=== PATIENT | female | born 1945 | race Caucasian/White ===

== ENCOUNTER 2017-01-23 13:07 | Observation (INO) | payer MEDICARE ==
[2017-01-23] VITALS (13 sets, daily range): BP systolic 139–180; BP diastolic 71–121; PULSE 74–129; RESP 14–20; TEMP 97.4–97.8; O2SAT 97–100
[~2017-01-23] VITALS: Ht 172.7 cm; Wt 78.6 kg
[~2017-01-23 13:07] MED LIST: ASPI325T PO; CALC600T10 PO; FEXO60TA PO; MELO7.5 PO; METO50TA PO
[2017-01-23] MEDS ORDERED: ALLEGRA (13:47)
[2017-01-23] MEDS ORDERED: METO25TA3 PO (13:47)
[2017-01-23] MEDS ORDERED: ASPI325T PO (13:47)
[2017-01-23] MEDS ORDERED: MELO7.5T4 PO (13:47)
[2017-01-23] MEDS ORDERED: CALC1TAB12 PO (13:47)
[2017-01-23] MEDS ORDERED: DILTIAZEM HCL 25 MG/5 ML VIAL IV ONE (14:00)
[2017-01-23] MEDS ORDERED: SODIUM CHLORIDE 0.9% FLUSH 5 ML FLUSH IVF PRN (14:00)
--- NOTE | 2017-01-23 14:12 | PD ---
HPI Chief Complaint: Cardiac Complaint Time Seen by Provider: 13:35 Travel History International Travel<30 days: No Contact w/Intl Traveler<30days: No Traveled to known affect area: No History of Present Illness HPI The patient was seen and examined in the presence of the nurse. This patient complains of rapid heartbeat and palpitations. She has history of paroxysmal A. fib and has had ablation in the past. She took her metoprolol at 9 AM this morning as usual. She takes a daily aspirin but no other blood thinners. She follows with cardiology regularly. Symptoms severity is moderate. No presyncopal symptoms. No chest pain. No alleviating factors, duration is 2 hours PFSH Past Medical History Anemia: Yes Arthritis: Yes Atrial Fibrillation: Yes (HISTORY OF) Blood Disorders: No Heart Rhythm Problems: Yes Cancer: No Cardiac Catheterization: Yes Cardiovascular Problems: Yes (Palpitations, ablation for AF, DVT) High Cholesterol: No Chest Pain: No Congestive Heart Failure: No Diabetes: No Diminished Hearing: No Diverticulitis: Yes Deep Vein Thrombosis: Yes (LEFT LEG R/T AFIB: 2011) Endocrine: No Gastrointestinal Disorders: Yes (DIVERTICULITIS, GALLBLADDER LESION) Genitourinary: No Hepatitis: No Hiatal Hernia: Yes Hypertension: Yes Immune Disorder: No Implanted Vascular Access Dvce: No Medical other: Yes (DIVERTICULOSIS) Musculoskeletal: No Neurologic: No Psychiatric: No Reproductive: No Respiratory: Yes (PNA) Pneumonia: Yes Thyroid Disease: No Tetanus Vaccination: Unknown ?: Not Menopausal: Yes : 2 Para: 2 Past Surgical History Abdominal Surgery: Yes Appendectomy: Yes Cardiac Surgery: Yes (ablation) Cholecystectomy: Yes Gynecologic Surgery: Yes (HYSTERECTOMY) Hysterectomy: Yes (91) Oral Surgery: Yes (TONSILECTOMY) Pacemaker: No Tonsillectomy: Yes Other Surgery: Yes (CARDIAC ABLASION) Social History Alcohol Use: Yes (SOCIAL) Tobacco Use: No Substance Use: No Allergies-Medications (Allergen,Severity, Reaction): Coded Allergies: Erythromycin (Verified Allergy, Severe, 01/23/17) Influenza Virus Vaccine (Verified Allergy, Severe, 01/23/17) Reported Meds & Prescriptions Reported Meds & Active Scripts Active Reported [[place]] Calcium 500 +D (Calcium Carbonate-Cholecalciferol) 500-400 Mg-Unit Tab 1 Tab PO DAILY Aspirin 325 Mg Tab 325 Mg PO DAILY Meloxicam 7.5 Mg Tab 7.5 Mg PO BID Metoprolol Tartrate 25 Mg Tab 12.5 Mg PO BID Review of Systems General / Constitutional: No: Fever Eyes: No: Visual changes HENT: No: Headaches Cardiovascular: Positive: Palpitations, Irregular Rhythm, Tachycardia, No: Chest Pain or Discomfort Respiratory: No: Shortness of Breath Gastrointestinal: No: Abdominal Pain Genitourinary: No: Dysuria Musculoskeletal: No: Pain Skin: No Rash Neurologic: No: Weakness Psychiatric: No: Depression Endocrine: No: Polydipsia Hematologic/Lymphatic: No: Easy Bruising Physical Exam Narrative GENERAL: Well-nourished, well-developed patient in no apparent distress. SKIN: Warm and dry. HEAD: Atraumatic. Normocephalic. EYES: Pupils equal and round. No scleral icterus. No injection or drainage. ENT: No nasal bleeding or discharge. Mucous membranes pink and moist. NECK: Trachea midline. No JVD. CARDIOVASCULAR: Irregularly irregular rhythm. No murmur appreciated. RESPIRATORY: No accessory muscle use. Clear to auscultation. Breath sounds equal bilaterally. GASTROINTESTINAL: Abdomen soft, non-tender, nondistended. Hepatic and splenic margins not palpable. MUSCULOSKELETAL: No obvious deformities. No clubbing. No cyanosis. No edema. NEUROLOGICAL: Awake and alert. No obvious cranial nerve deficits. Motor grossly within normal limits. Normal speech. PSYCHIATRIC: Appropriate mood and affect; insight and judgment normal. Data Data Last Documented VS Vital Signs Date Time Temp Pulse Resp B/P Pulse Ox O2 Delivery O2 Flow Rate FiO2 01/23/17 15:34 91 16 154/103 97 Room Air 01/23/17 13:19 97.4 Orders Complete Blood Count With Diff (01/23/17 13:49) Basic Metabolic Panel (Bmp) (01/23/17 13:49) Act Partial Throm Time (Ptt) (01/23/17 13:49) Prothrombin Time / Inr (Pt) (01/23/17 13:49) Magnesium (Mg) (01/23/17 13:49) Iv Access Insert/Monitor (01/23/17 13:49) Ecg Monitoring (01/23/17 13:49) Oximetry (01/23/17 13:49) Sodium Chloride 0.9% Flush (Ns Flush) (01/23/17 14:00) Diltiazem Inj (Cardizem Inj) (01/23/17 14:00) Electrocardiogram (01/23/17 13:28) Labs Laboratory Tests Test 01/23/17 14:07 White Blood Count 6.9 TH/MM3 Red Blood Count 4.51 MIL/MM3 Hemoglobin 13.8 GM/DL Hematocrit 42.2 % Mean Corpuscular Volume 93.6 FL Mean Corpuscular Hemoglobin 30.7 PG Mean Corpuscular Hemoglobin 32.8 % Concent Red Cell Distribution Width 12.0 % Platelet Count 265 TH/MM3 Mean Platelet Volume 8.4 FL Neutrophils (%) (Auto) 67.0 % Lymphocytes (%) (Auto) 25.1 % Monocytes (%) (Auto) 6.7 % Eosinophils (%) (Auto) 0.4 % Basophils (%) (Auto) 0.8 % Neutrophils # (Auto) 4.6 TH/MM3 Lymphocytes # (Auto) 1.7 TH/MM3 Monocytes # (Auto) 0.5 TH/MM3 Eosinophils # (Auto) 0.0 TH/MM3 Basophils # (Auto) 0.1 TH/MM3 CBC Comment DIFF FINAL Differential Comment Prothrombin Time 10.8 SEC Prothromb Time International 1.0 RATIO Ratio Activated Partial 27.1 SEC Thromboplast Time Sodium Level 141 MEQ/L Potassium Level 3.9 MEQ/L Chloride Level 108 MEQ/L Carbon Dioxide Level 24.4 MEQ/L Anion Gap 9 MEQ/L Blood Urea Nitrogen 13 MG/DL Creatinine 0.89 MG/DL Estimat Glomerular Filtration 63 ML/MIN Rate Random Glucose 104 MG/DL Calcium Level 9.1 MG/DL Magnesium Level 2.4 MG/DL [facility] Medical Decision Making Medical Screen Exam Complete: Yes Emergency Medical Condition: Yes Medical Record Reviewed: Yes Differential Diagnosis A. fib with RVR, SVT, ventricular tachycardia Narrative Course I have reviewed the patient's electronic medical record. Patient has been here for rapid A. fib before. Was here in 2011 for the same Patient is challenging IV access I placed bilateral external jugular IVs without complication Reviewed her EKG which shows A. fib with RVR Extended cardiac monitoring confirms rapid A. fib between 130 and 150 CBC is normal Metabolic profile is normal Coagulation studies are normal Patient is tachycardic and hypertensive I gave her 20 mg IV Cardizem On reassessment she is now rate controlled with a heart rate in the 90s and blood pressure 140/70 She feels much better I observed her for another hour after Cardizem and her rate is still in the 90s and she is now stable for outpatient follow-up She has an appointment with her talent acquisition associate in 2 days She will track her heart rate and blood pressure and bring that to the doctor's office Diagnosis Primary Impression: Atrial fibrillation with RVR Additional Impression: Accelerated hypertension Additional Instructions: Track heart rate and blood pressure and bring the list to your doctor on Monday Med/Other Pt SpecificInfo: Other Disposition: 01 DISCHARGE HOME Condition: Stable Perez Jeffrey MD Jan 23, 2017 14:12
[2017-01-23 14:17] LABS: AUTOMATED NEUTROPHIL # 4.6 TH/MM3 (1.8-7.7); BASOPHIL # 0.1 TH/MM3 (0-0.2); BASOPHIL % 0.8 % (0.0-2.0); EOSINOPHIL % 0.4 % (0.0-4.0); HEMATOCRIT 42.2 % (35.0-46.0); HEMO FLAGS DIFF FINAL; LYMPH % 25.1 % (9.0-44.0); LYMPHOCYTE # 1.7 TH/MM3 (1.0-4.8); MEAN CELL VOLUME 93.6 FL (80.0-100.0); MEAN CORPUSCULAR HEMOGLOBIN 30.7 PG (27.0-34.0); MEAN CORPUSCULAR HGB CONC 32.8 % (32.0-36.0); MONO % 6.7 % (0.0-8.0); PLATELET COUNT 265 TH/MM3 (150-450); RED BLOOD COUNT 4.51 MIL/MM3 (4.00-5.30); WHITE BLOOD COUNT 6.9 TH/MM3 (4.0-11.0)
[2017-01-23 14:25] LABS: POTASSIUM 3.9 MEQ/L (3.5-5.1)
[2017-01-23 14:28] LABS: BICARBONATE 24.4 MEQ/L (21.0-32.0); MAGNESIUM 2.4 MG/DL (1.5-2.5)
[2017-01-23 14:29] LABS: APTT (PATIENT) 27.1 SEC (24.3-30.1); PROTHROMBIN TIME - PATIENT 10.8 SEC (9.8-11.6)
--- NOTE | 2017-01-23 17:10 | PD ---
Physical Exam Date Seen by Provider: Jan 23, 2017 Time Seen by Provider: 17:05 Narrative This 71-year-old female is complaining of palpitations. She has a history of atrial fibrillation. sHe presented several years ago with an occlusion in her left leg which was secondary to an embolus. He was found to be in atrial fibrillation. Since then she's had paroxysmal atrial fibrillation. She had an ablation at several years ago and has only rare bouts of atrial fibrillation she is currently on metoprolol 12.5 mg twice a day. She had an onset of palpitations at around 2:00 this morning. He presented here with a heart rate of about 120 to 1:30. She saw Dr. Jeffrey who gave her Cardizem. Her heart rate come down transiently but then went back up to 130. I ordered 25 mg of oral metoprolol. After this her heart rate down varying between 90 and 110. She remains in atrial fibrillation. She is awake and alert and does not appear in distress. I have discussed the case with Dr. March who recommends she be admitted in view of the lability of her heart rate. Data Data Last Documented VS Vital Signs Date Time Temp Pulse Resp B/P Pulse Ox O2 Delivery O2 Flow Rate FiO2 01/23/17 18:03 16 98 Room Air 01/23/17 18:02 89 148/85 01/23/17 13:19 97.4 Orders Complete Blood Count With Diff (01/23/17 13:49) Basic Metabolic Panel (Bmp) (01/23/17 13:49) Act Partial Throm Time (Ptt) (01/23/17 13:49) Prothrombin Time / Inr (Pt) (01/23/17 13:49) Magnesium (Mg) (01/23/17 13:49) Iv Access Insert/Monitor (01/23/17 13:49) Ecg Monitoring (01/23/17 13:49) Oximetry (01/23/17 13:49) Sodium Chloride 0.9% Flush (Ns Flush) (01/23/17 14:00) Diltiazem Inj (Cardizem Inj) (01/23/17 14:00) Electrocardiogram (01/23/17 13:28) Metoprolol Tartrate (Lopressor) (01/23/17 17:15) Aspirin (Aspirin) (01/23/17 18:45) Aspirin (Aspirin) (01/24/17 09:00) Metoprolol Tartrate (Lopressor) (01/23/17 21:00) Calcium-Vit D 250-125 Mg (Oscal-D 250-12 (01/24/17 09:00) Vital Signs (Adult) Q15MX4,Q4H (01/23/17 19:07) Admit Order (Ed Use Only) (01/23/17 19:09) Motor Checker / Telemetry YONY.Q8H (01/23/17 19:07) Cardiac Rhythm YONY.Q8H (01/23/17 19:07) ^ Notify Dr: Other (01/23/17 19:07) Diltiazem Inj (Cardizem Inj) (01/23/17 19:30) Place In Observation (01/23/17 ) Vital Signs (Adult) Q4H (01/23/17 19:07) Activity Oob With Assistance (01/23/17 19:07) Intake + Output YONY.QSHIFT (01/23/17 19:07) Diet Heart Healthy (01/24/17 Breakfast) Sodium Chloride 0.9% Flush (Ns Flush) (01/23/17 19:15) Sodium Chloride 0.9% Flush (Ns Flush) (01/23/17 21:00) Acetaminophen (Tylenol) (01/23/17 19:15) Ondansetron Inj (Zofran Inj) (01/23/17 19:15) Bisacodyl Supp (Dulcolax Supp) (01/23/17 19:15) Docusate Sodium (Colace) (01/23/17 21:00) Magnesium Hydroxide Liq (Milk Of Magnesi (01/23/17 19:15) Sennosides (Senokot) (01/23/17 19:15) Resp Oxygen Roddy C Titrat 1-4 L (01/23/17 ) Case Management Consult (01/23/17 19:07) Heparin Inj (Heparin Inj) (01/23/17 20:00) Scd Bilateral/Knee High YONY.BID (01/23/17 19:07) Acetaminophen (Tylenol) (01/23/17 19:15) Naloxone Inj (Narcan Inj) (01/23/17 19:15) Consult Cardiology (01/23/17 ) Thyroid Stimulating Hormone (01/23/17 14:07) Labs Laboratory Tests Test 01/23/17 14:07 White Blood Count 6.9 TH/MM3 Red Blood Count 4.51 MIL/MM3 Hemoglobin 13.8 GM/DL Hematocrit 42.2 % Mean Corpuscular Volume 93.6 FL Mean Corpuscular Hemoglobin 30.7 PG Mean Corpuscular Hemoglobin 32.8 % Concent Red Cell Distribution Width 12.0 % Platelet Count 265 TH/MM3 Mean Platelet Volume 8.4 FL Neutrophils (%) (Auto) 67.0 % Lymphocytes (%) (Auto) 25.1 % Monocytes (%) (Auto) 6.7 % Eosinophils (%) (Auto) 0.4 % Basophils (%) (Auto) 0.8 % Neutrophils # (Auto) 4.6 TH/MM3 Lymphocytes # (Auto) 1.7 TH/MM3 Monocytes # (Auto) 0.5 TH/MM3 Eosinophils # (Auto) 0.0 TH/MM3 Basophils # (Auto) 0.1 TH/MM3 CBC Comment DIFF FINAL Differential Comment Prothrombin Time 10.8 SEC Prothromb Time International 1.0 RATIO Ratio Activated Partial 27.1 SEC Thromboplast Time Sodium Level 141 MEQ/L Potassium Level 3.9 MEQ/L Chloride Level 108 MEQ/L Carbon Dioxide Level 24.4 MEQ/L Anion Gap 9 MEQ/L Blood Urea Nitrogen 13 MG/DL Creatinine 0.89 MG/DL Estimat Glomerular Filtration 63 ML/MIN Rate Random Glucose 104 MG/DL Calcium Level 9.1 MG/DL Magnesium Level 2.4 MG/DL [facility] Medical Record Reviewed: Yes Supervised Visit with EPIFANIO: No Differential Diagnosis Differential includes atrial fibrillation Narrative Course Patient has been given metoprolol 25 mg by mouth. Intravenous Cardizem was very short acting and affect. She is being admitted for observation Diagnosis Primary Impression: Atrial fibrillation with RVR Additional Impression: Accelerated hypertension Admitting Information Admitting Physician Requests: Observation Referrals: FRANC GOMEZ M.D. (PCP) Coin Purse Assembler as needed Patient Instructions: General Instructions, Atrial Fibrillation (ED), Hypertension (ED) Departure Forms: Tests/Procedures Additional Instruction: Track heart rate and blood pressure and bring the list to your doctor on Monday Disposition: 01 DISCHARGE HOME Condition: Stable Jodran Jennings MD Jan 23, 2017 17:10
[2017-01-23] MEDS ORDERED: METOPROLOL TARTRATE 25 MG TAB PO ONE (17:15)
[2017-01-23] MEDS ORDERED: ASPIRIN 325 MG TAB PO ONE (18:45)
[2017-01-23] MEDS ORDERED: SENNOSIDES 8.6 MG TAB PO PRN (19:15)
[2017-01-23] MEDS ORDERED: SODIUM CHLORIDE 0.9% FLUSH 5 ML FLUSH FLUSH PRN (19:15)
[2017-01-23] MEDS ORDERED: ONDANSETRON HCL 4 MG/2 ML VIAL IVP PRN (19:15)
[2017-01-23] MEDS ORDERED: BISACODYL 10 MG SUPP PR PRN (19:15)
[2017-01-23] MEDS ORDERED: MAGNESIUM HYDROXIDE SUSP 30 ML CUP PO PRN (19:15)
[2017-01-23] MEDS ORDERED: ACETAMINOPHEN 325 MG TAB PO PRN ×2 (19:15)
[2017-01-23] MEDS ORDERED: NALOXONE HCL 0.4 MG/ML AMP IV PRN (19:15)
[2017-01-23] MEDS ORDERED: DILTIAZEM INJ 100 MG in SODIUM CHLORIDE 0.9% INJ 100 ML IV SCH (19:30)
[2017-01-23] MEDS ORDERED: PILL SPLITTER OTHER PRN (19:30)
[2017-01-23] MEDS: SODIUM CHLORIDE 0.9% FLUSH 5 ML FLUSH FLUSH SCH (21:00)
[2017-01-23] MEDS: METOPROLOL TARTRATE 25 MG TAB PO SCH (21:23)
[2017-01-23] MEDS: DOCUSATE SODIUM 100 MG CAP PO SCH (21:23)
[2017-01-23] MEDS: HEPARIN SODIUM - SQ 10,000 UNITS/ML VIAL SQ SCH (21:23)
[2017-01-24] VITALS: BP 132/82; PULSE 77; RESP 20; TEMP 96.7; O2SAT 98
[2017-01-24 08:00] VITALS: BP 118/93; PULSE 85; RESP 20; TEMP 97.6; O2SAT 98
[2017-01-24] MEDS ORDERED: ASPIRIN 325 MG TAB PO SCH (09:00)
[2017-01-24] MEDS ORDERED: CALCIUM/VITAMIN D 250 MG/125 U TAB PO SCH (09:00)
[2017-01-24] MEDS: DOCUSATE SODIUM 100 MG CAP PO SCH (09:00)
[2017-01-24] MEDS: HEPARIN SODIUM - SQ 10,000 UNITS/ML VIAL SQ SCH (09:03)
[2017-01-24] MEDS: METOPROLOL TARTRATE 25 MG TAB PO SCH (09:03)
[2017-01-24] MEDS: SODIUM CHLORIDE 0.9% FLUSH 5 ML FLUSH FLUSH SCH (09:04)
[2017-01-24] MEDS ORDERED: METOPROLOL TARTRATE 25 MG TAB PO ONE (09:15)
[2017-01-24 10:15] VITALS: O2SAT 95
[2017-01-24 12:00] VITALS: BP 115/90; PULSE 88; RESP 18; TEMP 97.4; O2SAT 97
--- NOTE | 2017-01-24 12:27 | HHI.HP ---
[facility] Primary Care Physician Robert Peres M.D. Admission Diagnosis ATRIAL FIBRILLATION Diagnoses: Chief Complaint: Palpitations Travel History International Travel<30 Days: No Contact w/Intl Traveler <30 Da: No Traveled to Known Affected Are: No History of Present Illness This patient is a 71-year-old female with known history of atrial fibrillation. 4 years ago she had an ablation and had been pretty asymptomatic up until the last year when she has intermittent bursts of atrial fibrillation. For these usually takes an extra dose of her metoprolol and it subsides. This time when she tried taking and she dosed the palpitations continued for about 2 hours. She did come to the emergency room and was found to have a pulse of about 130. On my review of her EKG is atrial fibrillation with rapid ventricular response. Patient was monitored overnight. She was given diltiazem as well as an extra dose of her metoprolol and her heart rate did improve. Patient denies any chest pain, shortness of breath, she is not dizzy or lightheaded. I did speak with her postal inspector who recommended medical medications. Patient has an appointment in the office in the morning and if her rate is controlled likely will be able to follow-up in the morning Review of Systems Constitutional: DENIES: Diaphoretic episodes, Fatigue, Fever, Weight gain, Weight loss, Chills, Dizziness, Change in appetite, Night Sweats Endocrine: DENIES: Abnorml menstrual pattern, Heat/cold intolerance, Polydipsia , Polyuria, Polyphagia Eyes: DENIES: Blurred vision, Diplopia, Eye inflammation, Eye pain, Vision loss , Photosensitivity, Double Vision Ears, nose, mouth, throat: DENIES: Tinnitus, Hearing loss, Vertigo, Nasal discharge, Oral lesions, Throat pain, Hoarseness, Ear Pain, Running Nose, Epistaxis, Sinus Pain, Toothache, Odynophagia Respiratory: DENIES: Apneas, Cough, Snoring, Wheezing, Hemoptysis, Sputum production, Shortness of breath Cardiovascular: COMPLAINS OF: Palpitations, DENIES: Chest pain, Syncope, Dyspnea on Exertion, PND, Lower Extremity Edema, Orthopnea, Claudication Gastrointestinal: DENIES: Abdominal pain, Black stools, Bloody stools, Constipation, Diarrhea, Nausea, Vomiting, Difficulty Swallowing, Anorexia Genitourinary: DENIES: Abnormal vaginal bleeding, Dysmenorrhea, Dyspareunia, Sexual dysfunction, Urinary frequency, Urinary incontinence, Urgency, Hematuria , Dysuria, Nocturia, Vaginal discharge Musculoskeletal: DENIES: Joint pain, Muscle aches, Stiffness, Joint Swelling, Back pain, Neck pain Integumentary: DENIES: Abnormal pigmentation, Pruritus, Rash, Nail changes, Breast masses, Breast skin changes, Nipple discharge Hematologic/lymphatic: DENIES: Bruising, Lymphadenopathy Immunologic/allergic: DENIES: Eczema, Urticaria Psychiatric: DENIES: Anxiety, Confusion, Mood changes, Depression, Hallucinations, Agitation, Suicidal Ideation, Homicidal Ideation, Delusions Past Family Social History Past Medical History afib Diverticular disease Past Surgical History Cardiac ablation, hysterectomy, tonsillectomy, tonsillectomy, appendectomy Reported Medications Reviewed in the medical record, nothing new Allergies: Coded Allergies: Erythromycin (Verified Allergy, Severe, 01/23/17) Influenza Virus Vaccine (Verified Allergy, Severe, 01/23/17) Active Ordered Medications Reviewed in the medical record Family History Father from cardiomyopathy at age 56, mother at 89 and had mitral valve prolapse Social History No tobacco or alcohol dependency, lives with her Physical Exam Vital Signs Vital Signs Date Time Temp Pulse Resp B/P Pulse Ox O2 Delivery O2 Flow Rate FiO2 01/24/17 08:00 97.6 85 20 118/93 98 01/24/17 00:00 96.7 77 20 132/82 98 01/23/17 23:00 97.8 80 20 159/105 99 01/23/17 23:00 79 01/23/17 22:59 79 01/23/17 21:25 74 16 139/84 99 Room Air 01/23/17 20:30 74 16 172/85 100 Room Air 01/23/17 19:34 99 01/23/17 19:14 99 01/23/17 19:14 87 18 180/79 99 Room Air 01/23/17 18:03 16 98 Room Air 01/23/17 18:02 89 16 148/85 98 Room Air 01/23/17 17:38 129 16 173/91 99 Room Air 01/23/17 16:12 88 16 140/93 98 01/23/17 15:34 91 16 154/103 97 Room Air 01/23/17 14:24 83 16 146/71 99 Room Air 01/23/17 13:56 18 100 Room Air 01/23/17 13:36 18 100 Room Air 01/23/17 13:19 97.4 99 14 174/121 99 Physical Exam GENERAL: This is a well-nourished, well-developed patient, in no apparent distress. SKIN: No rashes, ecchymoses or lesions. Cool and dry. HEAD: Atraumatic. Normocephalic. No temporal or scalp tenderness. EYES: Pupils equal round and reactive. Extraocular motions intact. No scleral icterus. No injection or drainage. ENT: Nose without bleeding, purulent drainage or septal hematoma. Throat without erythema, tonsillar hypertrophy or exudate. Uvula midline. Airway patent. NECK: Trachea midline. No JVD or lymphadenopathy. Supple, nontender, no meningeal signs. CARDIOVASCULAR: afib without murmurs, gallops, or rubs. RESPIRATORY: Clear to auscultation. Breath sounds equal bilaterally. No wheezes , rales, or rhonchi. GASTROINTESTINAL: Abdomen soft, non-tender, nondistended. No hepato-splenomegaly , or palpable masses. No guarding. MUSCULOSKELETAL: Extremities without clubbing, cyanosis, or edema. No joint tenderness, effusion, or edema noted. No calf tenderness. Negative Homans sign bilaterally. NEUROLOGICAL: Awake and alert. Cranial nerves II through XII intact. Motor and sensory grossly within normal limits. Five out of 5 muscle strength in all muscle groups. Normal speech. Laboratory Laboratory Tests Test 01/23/17 14:07 White Blood Count 6.9 Red Blood Count 4.51 Hemoglobin 13.8 Hematocrit 42.2 Mean Corpuscular Volume 93.6 Mean Corpuscular Hemoglobin 30.7 Mean Corpuscular Hemoglobin 32.8 Concent Red Cell Distribution Width 12.0 Platelet Count 265 Mean Platelet Volume 8.4 Neutrophils (%) (Auto) 67.0 Lymphocytes (%) (Auto) 25.1 Monocytes (%) (Auto) 6.7 Eosinophils (%) (Auto) 0.4 Basophils (%) (Auto) 0.8 Neutrophils # (Auto) 4.6 Lymphocytes # (Auto) 1.7 Monocytes # (Auto) 0.5 Eosinophils # (Auto) 0.0 Basophils # (Auto) 0.1 CBC Comment DIFF FINAL Differential Comment Prothrombin Time 10.8 Prothromb Time International 1.0 Ratio Activated Partial 27.1 Thromboplast Time Sodium Level 141 Potassium Level 3.9 Chloride Level 108 Carbon Dioxide Level 24.4 Anion Gap 9 Blood Urea Nitrogen 13 Creatinine 0.89 Estimat Glomerular Filtration 63 Rate Random Glucose 104 Calcium Level 9.1 Magnesium Level 2.4 Thyroid Stimulating Hormone 2.150 3rd Gen Result Diagram: 01/23/17 1407 01/23/17 1407 Assessment and Plan Problem List: (1) Atrial fibrillation with RVR ICD Code: I48.91 Status: Acute Plan: improved after metoprolol Likely dc home Followup Dr Clemons in am (discusse with cardiology) Assessment and Plan Discharge home Diet heart healthy Activity unrestricted Follow-up with postal inspector in a.m. Discussed Condition With Patient, spouse, postal inspector/Danisha Altman MD Jan 24, 2017 12:26
--- NOTE | 2017-01-24 12:28 | HHI.DCPOC ---
Discharge Care Plan Diagnosis: (1) Atrial fibrillation with RVR Goals to Promote Your Health * To prevent worsening of your condition and complications * To maintain your health at the optimal level Directions to Meet Your Goals Take your medications as prescribed Follow your dietary instruction Follow activity as directed Keep your appointments as scheduled Take your immunizations and boosters as scheduled If your symptoms worsen call your PCP, if no PCP go to Urgent Care Center or Emergency Room Smoking is Dangerous to Your Health. Avoid second hand smoke Call the 24-hour hour crisis hotline for domestic abuse at Danisha Perez MD Jan 24, 2017 12:28
--- NOTE | 2017-01-24 16:41 | EKG ---
Date Performed: 01/23/2017 Time Performed: 13:28:16 PTAGE: 71 years EKG: Atrial fibrillation with rapid ventricular response. Left axis deviation Left ventricular h ypertrophy Extensive ST changes may be due to hypertrophy and/or ischemia Atrial fibrillation is new since prior tracing Otherwise largely unchanged. Abnormal ECG PREVIOUS TRACING : 07/09/2016 18.45 DOCTOR: Siddhartha Arvizu Interpretating Date/Time 01/24/2017 16:41:07
== END 2017-01-24 15:48 | disposition home or self-care (01) ==
LOC: PHED 13:07 → PHEDA 19:10 → PH3B 22:45
PROVIDERS: ADMIT Hospitalist; ATTEND Hospitalist
DX: I48.0 Paroxysmal atrial fibrillation (principal); I10 Essential (primary) hypertension
CPT/HCPCS: 80048; 83735; 84443; 85025; 85610; 85730; 93005; 96374; 99285; G0378; J1644

== ENCOUNTER 2017-02-21 08:38 | Day surgery (SDC) | payer MEDICARE ==
[~2017-02-21] VITALS: Ht 170.2 cm; Wt 78.9 kg
[~2017-02-21 08:38] MED LIST changes: +ALLEGRA; +CALC1TAB12 PO; -CALC600T10 PO; -FEXO60TA PO; -MELO7.5 PO; +MELO7.5T4 PO; +METO25TA3 PO; -METO50TA PO
[2017-02-21] MEDS ORDERED: METO50TA PO (08:58)
[2017-02-21] MEDS ORDERED: APIX5TAB PO (08:58)
[2017-02-21] MEDS ORDERED: META48.53 PO (08:58)
[2017-02-21] MEDS ORDERED: DOCU100C PO (08:58)
[2017-02-21] MEDS ORDERED: CALC1TAB87 PO (08:58)
[2017-02-21 09:07] VITALS: BP 164/110; PULSE 76; RESP 18; TEMP 99.3; O2SAT 98
[2017-02-21 09:34] LABS: AUTOMATED NEUTROPHIL # 2.2 TH/MM3 (1.8-7.7); BASOPHIL % 0.6 % (0.0-2.0); EOSINOPHIL # 0.1 TH/MM3 (0-0.4); HEMATOCRIT 37.4 % (35.0-46.0); HEMO FLAGS DIFF FINAL; LYMPH % 33.9 % (9.0-44.0); LYMPHOCYTE # 1.4 TH/MM3 (1.0-4.8); MEAN CELL VOLUME 92.7 FL (80.0-100.0); MEAN CORPUSCULAR HEMOGLOBIN 32.8 PG (27.0-34.0); MEAN CORPUSCULAR HGB CONC 35.4 % (32.0-36.0); MONO % 10.7 % (0.0-8.0); NEUT % 52.8 % (16.0-70.0); PLATELET COUNT 180 TH/MM3 (150-450); RED BLOOD COUNT 4.03 MIL/MM3 (4.00-5.30); RED CELL DISTRIBUTION WIDTH 12.6 % (11.6-17.2); WHITE BLOOD COUNT 4.1 TH/MM3 (4.0-11.0)
[2017-02-21] MEDS ORDERED: LEVOFLOXACIN 500 MG PREMIX INJ 100 ML IV ONE ×2 (09:36→09:45)
[2017-02-21 09:45] LABS: APTT (PATIENT) 25.9 SEC (24.3-30.1); PROTHROMBIN TIME - PATIENT 10.7 SEC (9.8-11.6)
[2017-02-21] MEDS ORDERED: LACTATED RINGER'S 1000 ML IV SCH (09:45)
[2017-02-21] MEDS ORDERED: METOPROLOL TARTRATE 25 MG TAB PO PRN (09:45)
[2017-02-21] MEDS ORDERED: LORazepam 1 MG TAB SL SCH (09:45)
[2017-02-21] MEDS ORDERED: INSULIN HUMAN REGULAR 1,000 UNITS/10 ML VIAL SQ PRN (09:45)
[2017-02-21] MEDS ORDERED: SODIUM CHLORID 0.9% 500 ML IV SCH (09:45)
[2017-02-21] MEDS ORDERED: SODIUM CHLORID 0.9% 500 ML INJ 500 ML IV SCH (09:45)
[2017-02-21] MEDS ORDERED: ceFAZolin 2 GM PREMIX 50 ML IV ONE (10:00)
[2017-02-21 10:03] LABS: BICARBONATE 27.1 MEQ/L (21.0-32.0); POTASSIUM 4.1 MEQ/L (3.5-5.1)
[2017-02-21] MEDS ORDERED: PROTAMINE SULFATE 50 MG/5 ML VIAL ONE (11:20)
[2017-02-21] MEDS ORDERED: ISOPROTERENOL HCL 1 MG/5 ML AMP ONE (11:20)
[2017-02-21] MEDS ORDERED: HEPARIN-D5W INJ 250 ML ONE (11:20)
[2017-02-21] MEDS ORDERED: SODIUM CHLOR 0.9% 250 ML INJ 250 ML ONE (11:21)
[2017-02-21] MEDS ORDERED: fentaNYL CITRATE 250 MCG/5 ML AMP ONE (11:21)
[2017-02-21] MEDS ORDERED: HEPARIN SODIUM - IV 10,000 UNITS/10 ML VIAL ONE (11:21)
[2017-02-21] MEDS ORDERED: HEPARIN-NS/PF INJ 500 ML ONE (11:56)
[2017-02-21] MEDS ORDERED: PROPOFOL 200 MG/20 ML AMP IV PUSH ONE (13:00)
[2017-02-21] MEDS ORDERED: NEOSTIGMINE 3 MG/3 ML SYR IV ONE (13:00)
[2017-02-21] MEDS ORDERED: ONDANSETRON HCL 4 MG/2 ML VIAL IV PUSH ONE (13:00)
[2017-02-21] MEDS ORDERED: METOCLOPRAMIDE HCL 10 MG/2 ML VIAL IV PRN (14:00)
[2017-02-21] MEDS ORDERED: BACITRACIN OINT 0.9 GM PKT TOP ONE (14:00)
[2017-02-21] MEDS ORDERED: ATROPINE SULFATE 1 MG/ML VIAL IV PRN (14:00)
[2017-02-21] MEDS ORDERED: oxyCODONE/ACETAMINOPHEN 5 MG/325 MG TAB PO PRN ×2 (14:00)
[2017-02-21] MEDS ORDERED: LIDOCAINE HCL 1% 50 ML VIAL INFIL PRN (14:00)
[2017-02-21] MEDS ORDERED: SODIUM CHLOR 0.9% 250 ML INJ 250 ML IV PRN (14:00)
[2017-02-21] MEDS ORDERED: ONDANSETRON HCL 4 MG/2 ML VIAL IV PRN (14:00)
[2017-02-21] MEDS ORDERED: LORazepam 2 MG/ML VIAL IV PRN (14:00)
[2017-02-21 16:43] VITALS: BP 123/65; PULSE 79; RESP 18; TEMP 97.9; O2SAT 98
[2017-02-21] MEDS ORDERED: ACETAMINOPHEN 325 MG TAB PO PRN ×2 (17:30→18:28)
[2017-02-21 18:02] VITALS: PULSE 70
[2017-02-21 20:30] VITALS: BP 92/63; PULSE 73; RESP 20; TEMP 97.4; O2SAT 98
[2017-02-21 21:51] VITALS: BP 114/57; PULSE 57; O2SAT 98
[2017-02-21] MEDS: METOPROLOL TARTRATE 50 MG TAB PO SCH (21:51)
[2017-02-21] MEDS: APIXABAN 5 MG TABLET PO SCH (21:51)
--- NOTE | 2017-02-21 22:29 | EKG ---
Date Performed: 02/21/2017 Time Performed: 15:04:34 PTAGE: 71 years EKG: Sinus rhythm WITH FIRST DEGREE AV BLOCK WITH OCCASIONAL SUPRAVENTRICULAR PREMATURE COMPLEXES LEFT ANTERIOR FASCIC ULAR BLOCK NONSPECIFIC T-WAVE ABNORMALITY ABNORMAL ECG PREVIOUS TRACING : 02/21/2017 09.25 Compared to the previous tracing atrial flutter no longer p resent DOCTOR: Maninder Manuel Interpretating Date/Time 02/21/2017 22:28:17
[2017-02-22] VITALS (9 sets, daily range): BP systolic 85–121; BP diastolic 55–67; PULSE 59–76; RESP 16–20; TEMP 96.8–98; O2SAT 98
[2017-02-22 07:00] LABS: APTT (PATIENT) 26.8 SEC (24.3-30.1); PROTHROMBIN TIME - PATIENT 11.5 SEC (9.8-11.6)
--- NOTE | 2017-02-22 07:47 | MA ---
cc: FRANC GOMEZ M.D., HANSCY M.D. DATE: 02/21/2017 PROCEDURE Electrophysiology study, CS cannulation, 3-D mapping, transeptal approach, right and left heart catheterization, radiofrequency ablation of atrial fibrillation, pulmonary vein isolation, posterior wall ablation, left atrial tachycardia ablation, repeat electrophysiology study on Isuprel infusion. INDICATION FOR PROCEDURE Mrs. Patricia is a 71-year-old female with atrial fibrillation, previous ablation over five years ago, admitted due to atrial fibrillation, left atrial tachycardia, for electrophysiology study and ablation. The risks, the nature and the benefit of the procedure were clearly stated to her. The risks include pneumothorax, cardiac perforation, stroke, need for open heart surgery and even . The patient understood and agreed to proceed. DETAILS OF PROCEDURE As written informed consent was obtained prior to the transesophageal echo, the patient was kept on the table where she was prepped and draped in the usual sterile fashion. Conscious sedation was initiated and maintained throughout the procedure by the anesthesiologist. Once sedation was verified, the right and left inguinal area was anesthetized with 2% Xylocaine. Using modified Seldinger technique, the left femoral vein was cannulated on three occasions and three guidewires were advanced. Over the wires a 6, 7 and 10 Martiniquais Hemaquet was advanced. Then the left femoral artery was cannulated on one occasion and one guidewire was advanced. Over the wire a 4 Martiniquais Hemaquet was advanced. Then the right femoral vein was cannulated on one occasion and one guidewire was advanced. Over the wire an 8 Martiniquais Hemaquet was advanced. Then under fluoroscopic guidance through the 6 and 7 Martiniquais Hemaquets, two 5 Martiniquais Padmini curved quadripolar electrophysiology catheters were advanced and positioned on the His as well as coronary sinus. The patient was in atrial fibrillation, left atrial tachycardia. Then through the 10 Martiniquais Hemaquet, a Cordis-Shin AcuNav intracardiac catheter was advanced and placed at the right atrium. Multiple views were obtained. There was no pericardial effusion. The pulmonary vein was seen. The atrial septal was visualized. The aortic root was seen. Then the 8 Martiniquais Hemaquet in the right femoral vein was exchanged for an Agilis transseptal sheath that was placed all the way to the superior vena cava. Through the sheath a [place] needle was advanced. Then the sheath, the dilator and the needle were progressively advanced until foci engaged. Once engaged the needle was advanced. RF was delivered for 2 seconds. I was able to cross into the left atrium. Once the needle crossed the dilator was advanced. Once the dilator crossed the sheath was advanced. Once the sheath crossed the dilator and the needle were removed. Intracardiac echo showed the sheath in good position. The patient already received 10,000 units of heparin. The goal was to keep an ACT around 350 during the ablation. Through the sheath a [place] 20-post circumferential catheter was advanced. Using [employer] Mapping System a three-dimensional configuration of the left atrium was obtained. Becerra were taken at the left superior and inferior vein, right superior and inferior vein, mitral valve and appendage. The right inferior vein was still active. There was activity in the posterior portion of the left superior vein. Early activation was nearby the left superior vein. Also there was activation around the inferior vein. It looked like macro reentry. Then the circumferential catheter was replaced with a [place] TactiCath 65 cm, 3.5 mm irrigated tip mapping radiofrequency and ablation catheter. The patient converted at this point into sinus rhythm. I did isolate the right inferior vein. Then the right superior vein was isolated. The area of early activation was ablated. Then a mitral line was created. The anterior wall was ablated. Atrial pacing protocol was performed in the left atrium. No tachyarrhythmia was induced even by pacing at less than 200 milliseconds. Next, Isuprel was infused at 20 mcg then 30 mcg for over 18 minutes. No tachyarrhythmia was induced. At that point post Isuprel atrial pacing protocol was repeated again and no tachyarrhythmia was induced. The procedure was complete. All catheters were removed. Subsequent mapping of the left atrium showed no significant activation. All the pulmonary veins were clear with no conduction. The transeptal sheath was replaced by a 9 Martiniquais Hemaquet. Intracardiac echo showed no pericardial effusion, still good flow in the veins. The patient is going to be transferred to the recovery room. That was a very complex case. No incident report. The patient tolerated the procedure. Blood loss minimal. FINDINGS 1. Electrocardiogram: At baseline the patient was in atrial fibrillation, atrial tachycardia. Post procedure the patient was in sinus rhythm. 2. Basic interval: Basic cycle length was around 480 milliseconds. Post ablation it was around 120 milliseconds. 3. Tachyarrhythmia: Atrial fibrillation was mapped and ablated. Atrial tachycardia was ablated. Ablation was successful. CONCLUSIONS Successful electrophysiology study, mapping and radiofrequency ablation of atrial fibrillation, left atrial tachyarrhythmia, repeat electrophysiology studies on Isuprel infusion. COMMENT/RECOMMENDATION The patient is going to be transferred to the recovery room. He will be observed and when stable will be discharged home. Karina Clemons MD HS/BT /1:59 PM /7:26 AM
--- NOTE | 2017-02-22 07:53 | PD.CARD.PN ---
Subjective Subjective Remarks Feels ok Objective Medications Current Medications Medications (Trade) Dose Ordered Sig/Jacklyn Route Start Time Stop Time Status Last Admin Sodium Chloride 500 ml @ 30 mls/hr [id number] IV 02/21/17 09:45 (Lr 1000 ml Inj) 1,000 ml @ 30 mls/hr Q24H IV 02/21/17 09:45 (Percocet 5-325 Mg) 1 tab Q4H PRN PO 02/21/17 14:00 (Percocet 5-325 Mg) 2 tab Q4H PRN PO 02/21/17 14:00 (Ativan Inj) 0.5 mg UNSCH PRN IV 02/21/17 14:00 02/22/17 13:59 Atropine Sulfate 0.5 mg 0.5 mg UNSCH PRN IV 02/21/17 14:00 (NS 250 ml Inj) 250 ml @ 500 mls/hr ONCE PRN IV 02/21/17 14:00 02/22/17 13:59 (Reglan Inj) 10 mg Q4H PRN IV 02/21/17 14:00 (Zofran Inj) 4 mg Q4H PRN IV 02/21/17 14:00 (Xylocaine 1% Inj (50 ml)) 10 ml UNSCH PRN INFIL 02/21/17 14:00 02/22/17 13:59 (Eliquis) 5 mg BID PO 02/21/17 21:00 02/21/17 21:51 (Colace) 100 mg DAILY PO 02/22/17 09:00 (Lopressor) 50 mg BID PO 02/21/17 21:00 02/21/17 21:51 (Tylenol) 650 mg Q6H PRN PO 02/21/17 18:28 Vital Signs / I&O Vital Signs Date Time Temp Pulse Resp B/P Pulse Ox O2 Delivery O2 Flow Rate FiO2 02/22/17 07:25 96.8 66 16 121/67 98 02/22/17 06:39 64 02/22/17 04:00 98.0 64 20 121/60 98 02/22/17 02:07 60 02/22/17 01:00 98.0 59 20 96/57 98 85/55 02/22/17 01:00 59 02/22/17 00:00 98 Nasal Cannula 2.00 02/21/17 21:51 57 114/57 98 02/21/17 20:30 97.4 73 20 92/63 98 02/21/17 18:02 70 02/21/17 16:43 98 Nasal Cannula 2.00 02/21/17 16:43 97.9 79 18 123/65 98 02/21/17 16:00 78 16 123/65 99 Nasal Cannula 2 02/21/17 15:30 76 16 120/73 99 Nasal Cannula 2 02/21/17 15:00 76 16 122/74 98 Nasal Cannula 2 02/21/17 14:45 78 16 129/75 99 Nasal Cannula 2 02/21/17 14:30 74 16 122/74 99 Nasal Cannula 2 02/21/17 14:15 76 16 119/70 99 Nasal Cannula 2 02/21/17 14:10 97.7 76 16 127/69 92 Nasal Cannula 2 02/21/17 09:07 99.3 76 18 164/110 98 I/O 02/21/17 02/21/17 02/21/17 02/22/17 02/22/17 02/22/17 07:00 15:00 23:00 07:00 15:00 23:00 Intake Total 50 ml Output Total 450 ml Balance -400 ml Intake IV Total 50 ml Output Urine Total 450 ml Physical Exam GENERAL: Well-nourished, well-developed patient. SKIN: Warm and dry. Groin sites soft with no bruising. HEAD: Normocephalic. EYES: No scleral icterus. No injection or drainage. NECK: Supple, trachea midline. No JVD or lymphadenopathy. CARDIOVASCULAR: Regular rate and rhythm without murmurs, gallops, or rubs. RESPIRATORY: Breath sounds equal bilaterally. No accessory muscle use. GASTROINTESTINAL: Abdomen soft, non-tender, nondistended. EXTREMITIES: No cyanosis, or edema. NEUROLOGICAL: Awake, alert, and oriented x 3. Non-focal. Laboratory Laboratory Tests Test 02/21/17 02/21/17 02/22/17 08:58 09:03 05:16 White Blood Count 4.1 TH/MM3 Red Blood Count 4.03 MIL/MM3 Hemoglobin 13.2 GM/DL Hematocrit 37.4 % Mean Corpuscular Volume 92.7 FL Mean Corpuscular Hemoglobin 32.8 PG Mean Corpuscular Hemoglobin 35.4 % Concent Red Cell Distribution Width 12.6 % Platelet Count 180 TH/MM3 Mean Platelet Volume 9.5 FL Neutrophils (%) (Auto) 52.8 % Lymphocytes (%) (Auto) 33.9 % Monocytes (%) (Auto) 10.7 % Eosinophils (%) (Auto) 2.0 % Basophils (%) (Auto) 0.6 % Neutrophils # (Auto) 2.2 TH/MM3 Lymphocytes # (Auto) 1.4 TH/MM3 Monocytes # (Auto) 0.4 TH/MM3 Eosinophils # (Auto) 0.1 TH/MM3 Basophils # (Auto) 0.0 TH/MM3 CBC Comment DIFF FINAL Differential Comment Prothrombin Time 10.7 SEC 11.5 SEC Prothromb Time International 1.0 RATIO 1.0 RATIO Ratio Activated Partial 25.9 SEC 26.8 SEC Thromboplast Time Sodium Level 142 MEQ/L Potassium Level 4.1 MEQ/L Chloride Level 107 MEQ/L Carbon Dioxide Level 27.1 MEQ/L Anion Gap 8 MEQ/L Blood Urea Nitrogen 17 MG/DL Creatinine 0.94 MG/DL Estimat Glomerular Filtration 59 ML/MIN Rate Random Glucose 92 MG/DL Calcium Level 9.5 MG/DL Blood Type A POSITIVE Antibody Screen NEGATIVE Assessment and Plan Problem List: (1) Atrial fibrillation with RVR Assessment and Plan: NSR on tele s/p ablation. (2) S/P ablation of atrial fibrillation Assessment and Plan: Continue KIMBERLYN El home, f/u with Dr. Clemons in 3 weeks. Assessment and Plan D/W pt, RN, Dr. Clemons. Bhavna Crouch Feb 22, 2017 07:53
[2017-02-22] MEDS: METOPROLOL TARTRATE 50 MG TAB PO SCH (09:00)
[2017-02-22] MEDS ORDERED: DOCUSATE SODIUM 100 MG CAP PO SCH (09:00)
[2017-02-22] MEDS: APIXABAN 5 MG TABLET PO SCH (09:30)
--- NOTE | 2017-02-22 20:17 | EKG ---
Date Performed: 02/22/2017 Time Performed: 04:51:46 PTAGE: 71 years EKG: Sinus bradycardia with 1st degree A-V block Left anterior fascicular block Inferior and ant erior T wave changes are nonspecific Abnormal ECG PREVIOUS TRACING : 02/21/2017 15.04 Compared to prior tracing no significant change DOCTOR: Maninder Manuel Interpretating Date/Time 02/22/2017 20:15:43
--- NOTE | 2017-04-01 15:28 | ETE ---
Study Study Date:02/21/2017 STUDY CONCLUSIONS SUMMARY - Left ventricle: The cavity size was normal. Wall thickness was normal. Systolic function was normal. The estimated ejection fraction was in the range of 50% to 55%. Wall motion was normal; there were no regional wall motion abnormalities. - Aortic valve: No evidence of vegetation. - Mitral valve: No evidence of vegetation. - Left atrium: The atrium was mildly to moderately dilated. No evidence of thrombus in the atrial cavity or appendage. No evidence of thrombus in the atrial cavity or appendage. - Right atrium: No evidence of thrombus in the atrial cavity or appendage. - Atrial septum: No defect or patent foramen ovale was identified. Echo contrast study showed no [id number] atrial level shunt, at baseline or with provocation. - Tricuspid valve: No evidence of vegetation. - Pulmonic valve: No evidence of vegetation. If LV function is below 40, please consider prescribing an ACEI or ARB or document rationale for non-use. PROCEDURE DATA Consent: The risks, benefits, and alternatives to the procedure were explained to the patient and informed consent was obtained. Procedure: Initial setup. The patient was brought to the laboratory in the fasting state. Intravenous access was obtained. Surface ECG leads and pulse oximetric signals were monitored. Sedation. Conscious sedation was administered by cardiology staff. Transesophageal echocardiography. Topical anesthesia was obtained using viscous lidocaine. A transesophageal probe was inserted by the attending cloth framer. Image quality was good. Study completion: All IVs inserted during the procedure were removed. The patient tolerated the procedure well. There were no complications. Transesophageal echocardiography. 2D, complete spectral Doppler, and color Doppler. CARDIAC ANATOMY LEFT VENTRICLE: The cavity size was normal. Wall thickness was normal. Systolic function was normal. The estimated ejection fraction was in the range of 50% to 55%. Wall motion was normal; there were no regional wall motion abnormalities. AORTIC VALVE: Trileaflet; mildly thickened leaflets. Cusp separation was normal. No evidence of vegetation. Doppler: No significant regurgitation. Aorta: - There was no atheroma. There was no evidence for dissection. Aortic root: The aortic root was not dilated. Ascending aorta: The ascending aorta was normal in size. Aortic arch: The aortic arch was normal in size. Descending aorta: The descending aorta was normal in size. MITRAL VALVE: Structurally normal valve. Leaflet separation was normal. No evidence of vegetation. Doppler: Trace regurgitation. LEFT ATRIUM: The atrium was mildly to moderately dilated. No evidence of thrombus in the atrial cavity or appendage. No evidence of thrombus in the atrial cavity or appendage. The appendage was morphologically a left appendage, multilobulated, and of normal size. Emptying velocity was normal. ATRIAL SEPTUM: No defect or patent foramen ovale was identified. Echo contrast study showed no [id number] atrial level shunt, at baseline or with provocation. RIGHT VENTRICLE: The cavity size was normal. Wall thickness was normal. Systolic function was normal. PULMONIC VALVE: Structurally normal valve. No evidence of vegetation. TRICUSPID VALVE: Structurally normal valve. Leaflet separation was normal. No evidence of vegetation. Doppler: No significant regurgitation. PULMONARY ARTERY: The main pulmonary artery was normal-sized. RIGHT ATRIUM: The atrium was normal in size. No evidence of thrombus in the atrial cavity or appendage. The appendage was morphologically a right appendage. PERICARDIUM: There was no pericardial effusion. Prepared and signed by Karina Clemons [id number]
== END 2017-02-22 10:40 | disposition home or self-care (01) ==
LOC: HDIC 08:38 → HCAT 08:38 → HCIN 16:40 → HCAT 02-22 10:40
PROVIDERS: ATTEND Internal Medicine Interventional Cardiology
DX: I48.91 Unspecified atrial fibrillation (principal); I11.9 Hypertensive heart disease without heart failure; Z79.01 Long term (current) use of anticoagulants
CPT/HCPCS: 00537; 80048; 85002; 85025; 85610; 85730; 86850; 86900; 86901; 93005; 93312; 93320; 93325; 93613; 93623; 93656; 93662; C1730; C1731; C1732; C1759; C1766; C2630; J0690; J1644; J1956; J2405; J2710; J2720; J3010; J7050

== ENCOUNTER 2017-05-09 15:33 | Inpatient (IN) | payer MEDICARE ==
[~2017-05-09] VITALS: Ht 172.7 cm; Wt 81.0 kg
[~2017-05-09 15:33] MED LIST changes: +APIX5TAB PO; -ASPI325T PO; -CALC1TAB12 PO; +CALC1TAB87 PO; +DOCU100C PO; -MELO7.5T4 PO; +META48.53 PO; -METO25TA3 PO; +METO50TA PO
[2017-05-09 15:35] VITALS: BP 173/100; PULSE 66; RESP 15; TEMP 98.2; O2SAT 99
--- NOTE | 2017-05-09 16:35 | PD ---
HPI Chief Complaint: Cardiac Complaint Time Seen by Provider: 16:32 Travel History International Travel<30 days: No Contact w/Intl Traveler<30days: No Traveled to known affect area: No History of Present Illness HPI 71-year-old female with history of atrial fibrillation currently on Eliquis, hypertension, presents to the ER sent in by her md psychiatry, Dr. Clemons, because she states that she has had intermittent episodes of lightheadedness and near syncope, and has been wearing a Holter monitor. Dr. Quintanilla had told her today that she has abnormal heart rhythm on Holter and would like her to come to the ER to be admitted. She states that she last had a near-syncopal episode about noon today. She denies any current chest pains, shortness of breath, or any other symptoms. Modifying Factors: None Associated Signs & Symptoms: Near syncopal episodes, abnormal heart rhythm Risk Factors: A. fib PFSH Past Medical History Hx Anticoagulant Therapy: Yes (ELOQUIS ) Anemia: Yes Arthritis: Yes Atrial Fibrillation: Yes (HISTORY OF) Blood Disorders: No Heart Rhythm Problems: Yes Cancer: No Cardiac Catheterization: Yes Cardiovascular Problems: Yes (HTN , ATRIAL FIB ) High Cholesterol: No Chest Pain: No Congestive Heart Failure: No Diabetes: No Diminished Hearing: No Diverticulitis: Yes Deep Vein Thrombosis: Yes (LEFT LEG R/T AFIB: 2011) Endocrine: No Gastrointestinal Disorders: Yes (DIVERTICULITIS, GALLBLADDER LESION) Glaucoma: No Genitourinary: No Hepatitis: No Hiatal Hernia: Yes Hypertension: Yes Immune Disorder: No Implanted Vascular Access Dvce: No Musculoskeletal: No Neurologic: No Psychiatric: No Reproductive: No Respiratory: Yes (PNA) Integumentary: No Pneumonia: Yes Thyroid Disease: No Menopausal: Yes : 2 Para: 2 Past Surgical History Abdominal Surgery: Yes Appendectomy: Yes Cardiac Surgery: Yes (ablation) Cholecystectomy: Yes Gynecologic Surgery: Yes (HYSTERECTOMY) Hysterectomy: Yes (91) Oral Surgery: Yes (TONSILECTOMY) Pacemaker: No Tonsillectomy: Yes Other Surgery: Yes (CARDIAC ABLASION) Social History Alcohol Use: Yes (SOCIAL) Tobacco Use: No Substance Use: No Allergies-Medications (Allergen,Severity, Reaction): Coded Allergies: Erythromycin (Verified Allergy, Severe, 02/21/17) Influenza Virus Vaccine (Verified Allergy, Severe, 02/21/17) Ciprofloxacin (Verified Allergy, Unknown, 02/21/17) Reported Meds & Prescriptions Reported Meds & Active Scripts Active Reported Metamucil Original Texture (Psyllium Hydrophilic Mucilloid) 48.57 % Pow 1 Scoop PO DAILY PRN 1 rounded TEASPOON in 8 oz of liquid at the first sign of irregularity. Docusate Sodium 100 Mg Cap 100 Mg PO DAILY Calcium 600 with Vitamin D (Calcium Carbonate-Cholecalciferol) 600-400 mg-Unit Tab 1 Tab PO DAILY Metoprolol Tartrate 50 Mg Tab 50 Mg PO BID Eliquis (Apixaban) 5 Mg Tab 5 Mg PO BID [[place]] Review of Systems Except as stated in HPI: all other systems reviewed are Neg Physical Exam Narrative GENERAL: Well-developed pleasant elderly white female patient currently not in acute distress at awake and oriented 3. SKIN: Focused skin assessment warm/dry. HEAD: Atraumatic. Normocephalic. EYES: Pupils equal and round. No scleral icterus. No injection or drainage. ENT: No nasal bleeding or discharge. Mucous membranes pink and moist. NECK: Trachea midline. No JVD. CARDIOVASCULAR: Irregularly irregular. No murmur appreciated. RESPIRATORY: No accessory muscle use. Clear to auscultation. Breath sounds equal bilaterally. GASTROINTESTINAL: Abdomen soft, non-tender, nondistended. Hepatic and splenic margins not palpable. MUSCULOSKELETAL: No obvious deformities. No clubbing. No cyanosis. No edema. NEUROLOGICAL: Awake and alert. No obvious cranial nerve deficits. Motor grossly within normal limits. Normal speech. PSYCHIATRIC: Appropriate mood and affect; insight and judgment normal. Data Data Last Documented VS Vital Signs Date Time Temp Pulse Resp B/P Pulse Ox O2 Delivery O2 Flow Rate FiO2 05/09/17 15:35 98.2 66 15 173/100 99 Orders Electrocardiogram (05/09/17 ) Electrocardiogram (05/09/17 16:32) Complete Blood Count With Diff (05/09/17 16:32) Comprehensive Metabolic Panel (05/09/17 16:32) Magnesium (Mg) (05/09/17 16:32) Ckmb (Isoenzyme) Profile (05/09/17 16:32) Troponin I (05/09/17 16:32) Act Partial Throm Time (Ptt) (05/09/17 16:32) Prothrombin Time / Inr (Pt) (05/09/17 16:32) Chest, Single Ap (05/09/17 16:32) Ecg Monitoring (05/09/17 16:32) Iv Access Insert/Monitor (05/09/17 16:32) Oximetry (05/09/17 16:32) Sodium Chloride 0.9% Flush (Ns Flush) (05/09/17 16:45) Vascular Access Team Consult/P PRN (05/09/17 17:08) Vascular Poc Ultrasound (05/09/17 ) Labs Laboratory Tests Test 05/09/17 16:55 White Blood Count 6.1 TH/MM3 Red Blood Count 4.37 MIL/MM3 Hemoglobin 13.8 GM/DL Hematocrit 41.4 % Mean Corpuscular Volume 94.8 FL Mean Corpuscular Hemoglobin 31.7 PG Mean Corpuscular Hemoglobin 33.4 % Concent Red Cell Distribution Width 12.5 % Platelet Count 187 TH/MM3 Mean Platelet Volume 9.9 FL Neutrophils (%) (Auto) 67.0 % Lymphocytes (%) (Auto) 19.4 % Monocytes (%) (Auto) 12.0 % Eosinophils (%) (Auto) 0.6 % Basophils (%) (Auto) 1.0 % Neutrophils # (Auto) 4.1 TH/MM3 Lymphocytes # (Auto) 1.2 TH/MM3 Monocytes # (Auto) 0.7 TH/MM3 Eosinophils # (Auto) 0.0 TH/MM3 Basophils # (Auto) 0.1 TH/MM3 CBC Comment DIFF FINAL Differential Comment Prothrombin Time 11.1 SEC Prothromb Time International 1.0 RATIO Ratio Activated Partial 26.8 SEC Thromboplast Time Alanine Aminotransferase 35 U/L (ALT/SGPT) [facility] Medical Decision Making Medical Screen Exam Complete: Yes Emergency Medical Condition: Yes Medical Record Reviewed: Yes Interpretation(s) EKG shows normal sinus rhythm at a rate of 60 bpm with a first-degree AV block. No signs of acute ST-T changes. Laboratory Tests Test 05/09/17 16:55 Monocytes (%) (Auto) 12.0 % (0.0-8.0) Last 24 hours Impressions Chest X-Ray 05/09/17 1632 Signed Impressions: Service Date/Time: Tuesday, May 09, 2017 17:03 - CONCLUSION: 1. Minimal left lower lobe atelectasis versus scarring. 2. Otherwise, no acute abnormality. Jeevan Bozorgmanesh, MD Differential Diagnosis Near syncope/dysrhythmiasmetabolic issues versus arrhythmia versus dehydration Narrative Course At this point, lab work was ordered for the patient. Case was discussed with Dr. Aleman for admission. Consult Dr. Clemons. Diagnosis Primary Impression: Near syncope Additional Impression: Dysrhythmias Admitting Information Admitting Physician Requests: Admit Anthony Rodriguez MD May 09, 2017 16:35
[2017-05-09] MEDS ORDERED: SODIUM CHLORIDE 0.9% FLUSH 10 ML FLUSH IVF PRN (16:45)
[2017-05-09 17:15] LABS: AUTOMATED NEUTROPHIL # 4.1 TH/MM3 (1.8-7.7); BASOPHIL # 0.1 TH/MM3 (0-0.2); EOSINOPHIL % 0.6 % (0.0-4.0); HEMATOCRIT 41.4 % (35.0-46.0); HEMO FLAGS DIFF FINAL; LYMPH % 19.4 % (9.0-44.0); LYMPHOCYTE # 1.2 TH/MM3 (1.0-4.8); MEAN CELL VOLUME 94.8 FL (80.0-100.0); MEAN CORPUSCULAR HEMOGLOBIN 31.7 PG (27.0-34.0); MEAN CORPUSCULAR HGB CONC 33.4 % (32.0-36.0); PLATELET COUNT 187 TH/MM3 (150-450); RED BLOOD COUNT 4.37 MIL/MM3 (4.00-5.30); RED CELL DISTRIBUTION WIDTH 12.5 % (11.6-17.2); WHITE BLOOD COUNT 6.1 TH/MM3 (4.0-11.0)
--- NOTE | 2017-05-09 17:15 | RADRPT ---
EXAM DATE/TIME: 05/09/2017 17:03 [place] COMPARISON: No previous studies available for comparison. INDICATIONS : Palpitations, syncope. MEDICAL HISTORY : None. SURGICAL HISTORY : Cardiac ablasion. ENCOUNTER: Initial ACUITY: 1 day PAIN SCORE: 0/10 LOCATION: Bilateral chest FINDINGS: Minimal linear opacities in the left lung base likely reflecting atelectasis versus scarring. Cardiac silhouette is in the upper limits of normal in size. Mild rotary scoliosis of the thoracolumbar spin e. CONCLUSION: 1. Minimal left lower lobe atelectasis versus scarring. 2. Otherwise, no acute abnormality. Jeevan Ambriz MD on May 09, 2017 at 17:11 Board Certified Radiologist. This report was verified electronically.
[2017-05-09 17:26] LABS: APTT (PATIENT) 26.8 SEC (24.3-30.1); PROTHROMBIN TIME - PATIENT 11.1 SEC (9.8-11.6)
[2017-05-09 17:42] LABS: ALT (GPT) 35 U/L (10-53)
[2017-05-09 18:57] VITALS: O2SAT 98
[2017-05-09 19:07] LABS: AST (GOT) 15 U/L (15-37); BLOOD UREA NITROGEN 16 MG/DL (7-18)
[2017-05-09 19:08] LABS: ANION GAP 10 MEQ/L (5-15); BICARBONATE 23.7 MEQ/L (21.0-32.0); CHLORIDE 108 MEQ/L (98-107); MAGNESIUM 2.2 MG/DL (1.5-2.5); POTASSIUM 3.8 MEQ/L (3.5-5.1); SODIUM (NA) 142 MEQ/L (136-145)
[2017-05-09 19:09] LABS: GLOMERULAR FILTRATION RATE 58 ML/MIN (>89)
[2017-05-09 19:10] LABS: ALKALINE PHOSPHATASE 69 U/L (45-117); TOTAL BILIRUBIN ADULT 0.3 MG/DL (0.2-1.0)
[2017-05-09 19:13] LABS: CREATINE KINASE 70 U/L (26-192)
[2017-05-09] MEDS ORDERED: NALOXONE HCL 0.4 MG/ML AMP IV PRN (20:30)
[2017-05-09] MEDS ORDERED: SODIUM CHLORIDE 0.9% FLUSH 10 ML FLUSH IV FLUSH PRN (20:30)
[2017-05-09] MEDS ORDERED: SENNOSIDES 8.6 MG TAB PO PRN (20:30)
[2017-05-09] MEDS ORDERED: ONDANSETRON HCL 4 MG/2 ML VIAL IVP PRN (20:30)
[2017-05-09 20:31] VITALS: BP 192/86; PULSE 55; RESP 18; O2SAT 97
[2017-05-09] MEDS: SODIUM CHLORIDE 0.9% FLUSH 10 ML FLUSH IV FLUSH SCH (20:51)
[2017-05-09 21:07] VITALS: BP 163/70
[2017-05-09 23:06] VITALS: BP 187/96; PULSE 60; TEMP 97.8; O2SAT 96
[2017-05-09 23:14] VITALS: PULSE 53
[2017-05-09] MEDS ORDERED: amLODIPine BESYLATE 5 MG TAB PO ONE (23:30)
[2017-05-09] MEDS ORDERED: ENALAPRILAT 2.5 MG/2 ML VIAL IV PUSH PRN (23:30)
[2017-05-10] VITALS (30 sets, daily range): BP systolic 118–158; BP diastolic 68–82; PULSE 50–70; RESP 16–20; TEMP 97.7–98.7; O2SAT 96–99
[2017-05-10] MEDS: ACETAMINOPHEN 325 MG TAB PO PRN ×2 (00:47→17:34)
[2017-05-10 02:03] LABS: CREATINE KINASE 56 U/L (26-192)
--- NOTE | 2017-05-10 03:44 | HHI.HP ---
[facility] Robert Peres M.D. Admission Diagnosis syncope/dysrhythmia Diagnoses: (1) Near syncope Chief Complaint: dizziness Travel History International Travel<30 Days: No Contact w/Intl Traveler <30 Da: No Traveled to Known Affected Are: No History of Present Illness Referred to ER by Dr. Clemons for abnormal 24 hour holter monitor results; has been having dizziness. Recently had flecainide started on April 17. Had a second ablation for a fib in January 2017- has been on metoprolol 25 mg BID since - 6 weeks after ablation, patient started feeling "poorly" again with fatigue. First ablation was [address] Clemons 10/2012. On Eliquis for anticoagulation. The patient denies palpitations, chest pain, or shortness of breath. On May 04, the patient states that she nearly passed out on the background of feeling dizzy since starting Flecainide. The patient says she has been evaluated as an outpatient by Dr. Clemons for dizziness and near- syncope. He evaluated a 24 hour holter monitor that she turned in yesterday and when Dr. Clemons read it, he told her to come to the ER. She says that he saw her in the ED waiting area before she had a room; there's no notation of this in the medical record. The patient said Dr. Clemons indicated he would adjust her medications, possibly changing Metoprolol to extended release form - Metoprolol 25 mg XL once daily. He also mentioned a possible pacemaker placement. The patient complains that her bowels looser than normal since on Flecainide No black or red stool, pain or burning with urination Denies CAD, hypertension, diabetes, COPD, stroke, seizures, thyroid problems, or cancers. Review of Systems Except as stated in HPI: all other systems reviewed are Neg Past Family Social History Past Medical History Atrial fibrillation on Eliquis DVT left leg 2011 Hypertension . Past Surgical History Ablation x 2 for atrial fibrillation in 2011 and 2016 Left leg thrombectomy Hysterectomy 1992 Cholecystectomy 03/2016 Tonsillectomy in childhood Appendectomy . Reported Medications Reported Meds & Active Scripts Active Reported Metamucil Original Texture (Psyllium Hydrophilic Mucilloid) 48.57 % Pow 1 Scoop PO DAILY PRN 1 rounded TEASPOON in 8 oz of liquid at the first sign of irregularity. Docusate Sodium 100 Mg Cap 100 Mg PO DAILY Calcium 600 with Vitamin D (Calcium Carbonate-Cholecalciferol) 600-400 mg-Unit Tab 1 Tab PO DAILY Metoprolol Tartrate 50 Mg Tab 50 Mg PO BID Eliquis (Apixaban) 5 Mg Tab 5 Mg PO BID [[place]] . Allergies: Coded Allergies: Erythromycin (Verified Allergy, Severe, 02/21/17) Influenza Virus Vaccine (Verified Allergy, Severe, 02/21/17) Ciprofloxacin (Verified Allergy, Unknown, 02/21/17) Active Ordered Medications Current Medications Sodium Chloride (NS Flush) 2 ml UNSCH PRN IVF FLUSH AFTER USING IV ACCESS; Start 05/09/17 at 16:45; Stop 05/09/17 at 23:33; Status DC Sodium Chloride (NS Flush) 2 ml UNSCH PRN IV FLUSH FLUSH AFTER USING IV ACCESS ; Start 05/09/17 at 20:30 Sodium Chloride (NS Flush) 2 ml BID IV FLUSH Last administered on 05/09/17 20: 51; Start 05/09/17 at 21:00 Acetaminophen (Tylenol) 650 mg Q4H PRN PO TEMP > 100.4 Last administered on 00:47; Start 05/09/17 at 20:30 Ondansetron HCl (Zofran Inj) 4 mg Q6H PRN IVP NAUSEA OR VOMITING; Start at 20:30 Naloxone HCl (Narcan Inj) 0.4 mg UNSCH PRN IV SEE LABEL COMMENTS; Start at 20:30 Sennosides (Senokot) 17.2 mg Q12H PRN PO MODERATE - SEVERE CONSTIPATION; Start 05/09/17 at 20:30 Amlodipine Besylate (Norvasc) 5 mg ONCE ONCE PO Last administered on 23:39; Start 05/09/17 at 23:30; Stop 05/09/17 at 23:32; Status DC Enalaprilat (Vasotec Inj) 2.5 mg Q6H PRN IV PUSH bp>140/90; Start 05/09/17 at 23:30 . Family History Father with cardiomyopathy Mother from complications of aging; MVP, atrial fib, breast CA Brother alive and well Sister with musculoskeletal problems - DJD . Social History Tobacco: never smoked Alcohol: social drinker previously . Physical Exam Vital Signs Vital Signs Date Time Temp Pulse Resp B/P Pulse Ox O2 Delivery O2 Flow Rate FiO2 05/10/17 02:00 50 05/10/17 01:00 60 05/10/17 00:44 126/68 05/10/17 00:00 54 05/09/17 23:14 53 05/09/17 23:06 97.8 60 187/96 96 05/09/17 21:07 163/70 05/09/17 20:31 55 18 192/86 97 Room Air 05/09/17 18:57 98 05/09/17 15:35 98.2 66 15 173/100 99 Physical Exam GENERAL: This is a pleasant, well-nourished, well-developed patient, in no apparent distress. SKIN: No rashes or lesions. Cool and dry. HEAD: Atraumatic. Normocephalic. EYES: No scleral icterus. No injection or drainage. ENT: Nose without bleeding, purulent drainage. NECK: Trachea midline. No JVD or lymphadenopathy. CARDIOVASCULAR: Regular rate and rhythm without murmurs, gallops, or rubs. RESPIRATORY: Clear to auscultation. Breath sounds equal bilaterally. No wheezes , rales, or rhonchi. GASTROINTESTINAL: Abdomen soft, non-tender, nondistended. No guarding. MUSCULOSKELETAL: Extremities without clubbing, cyanosis, or edema. No calf tenderness. NEUROLOGICAL: Awake and alert. Motor and sensory grossly within normal limits. Normal speech. . Laboratory Laboratory Tests Test 05/09/17 05/09/17 05/10/17 16:55 17:35 00:30 White Blood Count 6.1 Red Blood Count 4.37 Hemoglobin 13.8 Hematocrit 41.4 Mean Corpuscular Volume 94.8 Mean Corpuscular Hemoglobin 31.7 Mean Corpuscular Hemoglobin 33.4 Concent Red Cell Distribution Width 12.5 Platelet Count 187 Mean Platelet Volume 9.9 Neutrophils (%) (Auto) 67.0 Lymphocytes (%) (Auto) 19.4 Monocytes (%) (Auto) 12.0 Eosinophils (%) (Auto) 0.6 Basophils (%) (Auto) 1.0 Neutrophils # (Auto) 4.1 Lymphocytes # (Auto) 1.2 Monocytes # (Auto) 0.7 Eosinophils # (Auto) 0.0 Basophils # (Auto) 0.1 CBC Comment DIFF FINAL Differential Comment Prothrombin Time 11.1 Prothromb Time International 1.0 Ratio Activated Partial 26.8 Thromboplast Time Sodium Level 142 Potassium Level 3.8 Chloride Level 108 Carbon Dioxide Level 23.7 Anion Gap 10 Blood Urea Nitrogen 16 Creatinine 0.96 Estimat Glomerular Filtration 58 Rate Random Glucose 77 Calcium Level 9.1 Magnesium Level 2.2 Total Bilirubin 0.3 Aspartate Amino Transf 15 (AST/SGOT) Alanine Aminotransferase 35 (ALT/SGPT) Alkaline Phosphatase 69 Total Creatine Kinase 70 56 Troponin I LESS THAN 0.02 LESS THAN 0.02 Total Protein 7.2 Albumin 3.7 Result Diagram: 05/09/17 1655 05/09/17 1735 Imaging Last Impressions Chest X-Ray 05/09/17 1632 Signed Impressions: Service Date/Time: Tuesday, May 09, 2017 17:03 - CONCLUSION: 1. Minimal left lower lobe atelectasis versus scarring. 2. Otherwise, no acute abnormality. Jeevan Ambriz MD . Assessment and Plan Problem List: (1) Near syncope ICD Code: R55 Status: Acute (2) Hypertensive urgency ICD Code: I16.0 Status: Acute Assessment and Plan Near Syncope - cardiac pauses 4-6 seconds on 24 hour Holter monitor (per patient ) - possible sick sinus syndrome - consult Dr. Clemons - assistance appreciated - serial EKGs and cardiac enzymes to r/o ACS - 12 lead EKG personally reviewed - SR with 1st degree AV block, incomplete right bundle branch block; enzymes negative thus far - Continuous cardiac telemetry to monitor for cardiac arrhythmias - Monitor I&O closely every shift - Monitor vital signs every 4 hours Hypertensive Urgency - Blood pressure initially 170s to 190s systolic over 70's - 100 diastolic - Amlodipine 5 mg by mouth 1 dose given - Enalapril 2.5 mg IV every 6 hours blood pressure greater than 140/90 - Hold metoprolol for now -adjustments to be made by Dr. Clemons DVT prophylaxis - SCDs - Hold chemoprophylaxis for possible invasive procedure The exam, history, and the medical decision-making described in the above note were completed with the assistance of the mid-level provider. I reviewed and agree with the findings presented. I attest that I had a [id number] encounter with the patient on the same day, and personally performed and documented my assessment and findings in the medical record. Discussed Condition With ER physician, patient, RN . Physician Certification 2 Midnight Certification Type: Admission for Inpatient Services Order for Inpatient Services The services are ordered in accordance with Medicare regulations or non- Medicare payer requirements, as applicable. In the case of services not specified as inpatient-only, they are appropriately provided as inpatient services in accordance with the 2-midnight benchmark. Estimated LOS (days): 3 days is the estimated time the patient will need to remain in the hospital, assuming treatment plan goals are met and no additional complications. Post-Hospital Plan: Home Lacy Candelario May 10, 2017 03:44 India Rogers MD May 12, 2017 07:57
[2017-05-10] MEDS ORDERED: PSYLLIUM FIBER SF/GF 6 GM POWD PKT PO PRN (06:15)
[2017-05-10 06:51] LABS: AUTOMATED NEUTROPHIL # 2.6 TH/MM3 (1.8-7.7); BASOPHIL # 0.1 TH/MM3 (0-0.2); BASOPHIL % 1.4 % (0.0-2.0); EOSINOPHIL % 0.1 % (0.0-4.0); HEMATOCRIT 39.3 % (35.0-46.0); HEMO FLAGS DIFF FINAL; LYMPHOCYTE # 1.6 TH/MM3 (1.0-4.8); MEAN CELL VOLUME 94.5 FL (80.0-100.0); MEAN CORPUSCULAR HEMOGLOBIN 31.4 PG (27.0-34.0); MEAN CORPUSCULAR HGB CONC 33.2 % (32.0-36.0); MONO % 11.7 % (0.0-8.0); NEUT % 53.8 % (16.0-70.0); PLATELET COUNT 164 TH/MM3 (150-450); RED BLOOD COUNT 4.16 MIL/MM3 (4.00-5.30); RED CELL DISTRIBUTION WIDTH 12.3 % (11.6-17.2); WHITE BLOOD COUNT 4.8 TH/MM3 (4.0-11.0)
[2017-05-10 07:09] LABS: ANION GAP 8 MEQ/L (5-15); BICARBONATE 26.3 MEQ/L (21.0-32.0); BLOOD UREA NITROGEN 14 MG/DL (7-18); CHLORIDE 109 MEQ/L (98-107); GLOMERULAR FILTRATION RATE 70 ML/MIN (>89); POTASSIUM 3.7 MEQ/L (3.5-5.1); SODIUM (NA) 143 MEQ/L (136-145)
--- NOTE | 2017-05-10 07:17 | EKG ---
Date Performed: 05/09/2017 Time Performed: 15:55:10 PTAGE: 71 years EKG: Sinus rhythm WITH FIRST DEGREE AV BLOCK INCOMPLETE RIGHT BUNDLE BRANCH BLOCK LEFT ANTERIOR FASCICULAR BLOCK Possi ble SEPTAL MYOCARDIAL INFARCTION ABNORMAL ECG COMPARED TO PRIOR ELECTROCARDIOGRAM, Incomplete RIGHT b undle branch block is present and premature atrial contractions are no longer present. PREVIOUS TRACING : 02/22/2017 04.51 DOCTOR: Cesario Corea Interpretating Date/Time 05/10/2017 07:16:25
[2017-05-10 07:22] LABS: CREATINE KINASE 53 U/L (26-192)
--- NOTE | 2017-05-10 07:51 | EKG ---
Date Performed: 05/10/2017 Time Performed: 05:22:34 PTAGE: 71 years EKG: Sinus bradycardia with 1st degree A-V block Prolonged QT interval Left anterior fascicular block Extensive T wave changes are nonspecific Abnormal ECG NO SIGNIFICANT CHANGE FROM PRIOR ELECTROC ARDIOGRAM. PREVIOUS TRACING : 05/09/2017 23.24 DOCTOR: Cesario Corea Interpretating Date/Time 05/10/2017 07:50:33
--- NOTE | 2017-05-10 07:59 | EKG ---
Date Performed: 05/09/2017 Time Performed: 23:24:16 PTAGE: 71 years EKG: Sinus bradycardia with 1st degree A-V block Prolonged QT interval Left anterior fascicular block Anterolateral T wave changes are nonspecific Abnormal ECG COMPARED TO PRIOR ELECTROCARDIOGRAM, Incomplete RIGHT bundle branch block is no longer present. PREVIOUS TRACING : 05/09/2017 15.55 DOCTOR: Cesario Corea Interpretating Date/Time 05/10/2017 07:57:53
[2017-05-10] MEDS ORDERED: METOPROLOL TARTRATE 50 MG TAB PO SCH (09:00)
[2017-05-10] MEDS: DOCUSATE SODIUM 100 MG CAP PO SCH (09:00)
[2017-05-10] MEDS ORDERED: FLECAINIDE ACETATE 100 MG TAB PO SCH (09:00)
[2017-05-10] MEDS ORDERED: PILL SPLITTER OTHER PRN (09:15)
[2017-05-10] MEDS: APIXABAN 5 MG TABLET PO SCH ×2 (10:07→21:13)
[2017-05-10] MEDS: SODIUM CHLORIDE 0.9% FLUSH 10 ML FLUSH IV FLUSH SCH ×2 (10:07→21:15)
[2017-05-10] MEDS: METOPROLOL TARTRATE 25 MG TAB PO SCH ×2 (10:07→21:00)
[2017-05-10] MEDS: FLECAINIDE ACETATE 100 MG TAB PO SCH ×2 (10:08→21:14)
--- NOTE | 2017-05-10 20:45 | HHI.PR ---
Addendum to Inpatient Note Addendum Reason: Additional Documentation Additional Information The patient denies chest pain or short of breath. States that she was feeling lightheaded or later today however that has subsided. Denies fevers or chills, denies cough. Patient is awake alert oriented 3, nonacute distress, sitting in a chair at bedside. S1 and S2 are present with regular rate and rhythm, no murmur rubs or gallops. Lungs are clear bilaterally Patient still with near syncope and cardiac pauses on Loop recorder. Patient has been seen by Dr. Clemons who has start the patient on flecainide, apixaban on metoprolol. Patient's blood pressure is still somewhat elevated but improved from admission. Continue to monitor vital signs and continue to follow-up cardiology recommendations. Continue to monitor on telemetry. Osman Shirley MD May 10, 2017 20:45
[2017-05-11] VITALS (27 sets, daily range): BP systolic 118–163; BP diastolic 68–90; PULSE 49–77; RESP 16–18; TEMP 97.5–98.9; O2SAT 95–98
[2017-05-11] MEDS: DOCUSATE SODIUM 100 MG CAP PO SCH (08:00)
[2017-05-11] MEDS: FLECAINIDE ACETATE 100 MG TAB PO SCH ×2 (08:00→20:24)
[2017-05-11] MEDS: SODIUM CHLORIDE 0.9% FLUSH 10 ML FLUSH IV FLUSH SCH ×2 (08:00→20:24)
[2017-05-11] MEDS: APIXABAN 5 MG TABLET PO SCH ×2 (08:01→20:24)
[2017-05-11] MEDS: METOPROLOL TARTRATE 25 MG TAB PO SCH ×2 (08:01→20:24)
--- NOTE | 2017-05-11 08:19 | MB ---
cc: COSME PONCE M.D. DATE OF CONSULTATION 05/10/2017 REASON FOR CONSULTATION Dizziness, multiple pauses. HISTORY Mrs. Patricia is a 71-year-old female with a history of atrial fibrillation, previous ablation. The patient was complaining about dizziness. A 24 hour Holter indicated multiple pauses some of them over six seconds. She was admitted to the emergency room. I did evaluate her yesterday afternoon. Flecainide was decreased. The patient was observed. I was consulted for further evaluation and management. The chart was reviewed. The patient was evaluated. CBCs yesterday night and this morning also. ALLERGIES CIPRO, ERYTHROMYCIN AND INFLUENZA VACCINE. SOCIAL HISTORY Negative for smoking and drinking. FAMILY HISTORY Noncontributory to her current medical condition. MEDICATIONS Currently she is on: 1. Amlodipine 5 mg a day 2. Eliquis 3. Enalapril 4. Flecainide 5. Metoprolol REVIEW OF SYSTEMS She refers no chest pain, no chest discomfort. No vomiting. No fever. PHYSICAL EXAM Alert, fully oriented. VITAL SIGNS: Her blood pressure currently is 158/82, pulse 54, respiratory 18. LUNGS: Ventilated today. CARDIOVASCULAR: S1-S2 regular. ABDOMEN: Soft. No mass. No bruit. EXTREMITIES: No edema. Electrocardiogram sinus rhythm. No active ST and T-wave changes. LABORATORY DATA Hemoglobin is 13, white blood cell 4.8. Potassium is 3.7, creatinine 0.81, troponin less than 0.02, INR 1.0. ASSESSMENT AND RECOMMENDATIONS Mrs. Harshad rossi is doing better. She refers some dizziness in the morning. There were less than two-second pauses. There was a short episode of bradycardia. Flecainide was increased to 50 mg twice a day and metoprolol also was decreased to 25 mg twice a day. Blood pressure is high. The patient received a dose of amlodipine this morning to control the blood pressure. My recommendation at this point is continue with amlodipine 5 mg a day for blood pressure control. I cannot increase the metoprolol because of severe bradycardia. If she is stable in the morning, she can be discharged home. I will monitor her during hospitalization and also as an outpatient. MD NANETTE Varela/CLAUDIA /7:33 PM /8:13 AM
--- NOTE | 2017-05-11 08:40 | PD.CARD.PN ---
Subjective Subjective Remarks Feels sleepy this morning, had some episodes of "wooziness" last night between 8 and 9 while watching TV. Objective Medications Current Medications Medications (Trade) Dose Ordered Sig/Jacklyn Route Start Time Stop Time Status Last Admin (NS Flush) 2 ml UNSCH PRN IV FLUSH 05/09/17 20:30 (NS Flush) 2 ml BID IV FLUSH 05/09/17 21:00 05/11/17 08:00 (Tylenol) 650 mg Q4H PRN PO 05/09/17 20:30 05/10/17 17:34 (Zofran Inj) 4 mg Q6H PRN IVP 05/09/17 20:30 (Narcan Inj) 0.4 mg UNSCH PRN IV 05/09/17 20:30 (Senokot) 17.2 mg Q12H PRN PO 05/09/17 20:30 (Vasotec Inj) 2.5 mg Q6H PRN IV PUSH 05/09/17 23:30 (Metamucil Smooth Texture Sf/ Gf Pkt) 1 pkt DAILY PRN PO 05/10/17 06:15 (Eliquis) 5 mg BID PO 05/10/17 09:00 05/11/17 08:01 (Colace) 100 mg DAILY PO 05/10/17 09:00 (Tambocor) 50 mg Q12HR PO 05/10/17 09:15 05/11/17 08:00 (Lopressor) 25 mg BID PO 05/10/17 09:15 05/10/17 10:07 (Pill Splitter) 1 ea UNSCH PRN OTHER 05/10/17 09:15 Vital Signs / I&O Vital Signs Date Time Temp Pulse Resp B/P Pulse Ox O2 Delivery O2 Flow Rate FiO2 05/11/17 07:36 53 05/11/17 07:00 97.5 63 16 159/82 97 05/11/17 06:16 53 05/11/17 05:06 49 05/11/17 04:35 54 05/11/17 03:15 56 05/11/17 03:15 97.7 57 16 128/72 98 05/11/17 02:45 52 05/11/17 01:24 53 05/11/17 00:20 52 05/10/17 23:39 97.7 52 16 137/69 98 6/14/17 23:39 52 05/10/17 22:00 52 05/10/17 21:00 52 05/10/17 20:15 56 05/10/17 20:15 98.4 59 16 118/71 96 05/10/17 19:00 59 05/10/17 18:00 58 05/10/17 17:00 54 05/10/17 16:12 98.0 58 18 150/80 98 05/10/17 16:00 62 05/10/17 15:00 66 05/10/17 14:00 54 05/10/17 13:05 54 05/10/17 12:26 56 05/10/17 12:17 98.1 50 18 158/82 98 05/10/17 11:00 62 05/10/17 10:00 64 05/10/17 09:00 70 I/O 05/10/17 05/10/17 05/10/17 05/11/17 05/11/17 05/11/17 07:00 15:00 23:00 07:00 15:00 23:00 Intake Total 480 ml 400 ml 720 ml Output Total 900 ml 1003 ml 850 ml Balance -420 ml -603 ml -130 ml Intake Oral 480 ml 400 ml 720 ml Output Urine Total 900 ml 1000 ml 850 ml Stool Total 3 ml # Voids 3 Physical Exam GENERAL: Well-nourished, well-developed patient. SKIN: Warm and dry. HEAD: Normocephalic. EYES: No scleral icterus. No injection or drainage. NECK: Supple, trachea midline. No JVD or lymphadenopathy. CARDIOVASCULAR: Bradycardic rate and regular rhythm without murmurs, gallops, or rubs. RESPIRATORY: Breath sounds equal bilaterally. No accessory muscle use. GASTROINTESTINAL: Abdomen soft, non-tender, nondistended. EXTREMITIES: No cyanosis, or edema. NEUROLOGICAL: Awake, alert, and oriented x 3. Non-focal. Imaging Last Impressions Chest X-Ray 05/09/17 1632 Signed Impressions: Service Date/Time: Tuesday, May 09, 2017 17:03 - CONCLUSION: 1. Minimal left lower lobe atelectasis versus scarring. 2. Otherwise, no acute abnormality. Jeevan Ambriz MD Assessment and Plan Problem List: (1) Accelerated hypertension Assessment and Plan: Blood pressure well controlled on current medications. No changes recommended. 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 When questioned, patient was awake and did have some symptoms of lightheadedness. May require further medication adjustments. Discussed with Dr. Clemons and he will reevaluate medications. Assessment and Plan Discussed with patient, RN, Dr. Clemons. Bhavna Crouch May 11, 2017 08:40
[2017-05-11] MEDS ORDERED: amLODIPine BESYLATE 5 MG TAB PO SCH (09:00)
--- NOTE | 2017-05-11 19:56 | HHI.PR ---
Subjective Remarks Patient had an episode of bradycardia last night heart rate into the 30's patient reports feeling dizzi denies cp/sob vital signs stable Objective Vitals Vital Signs Date Time Temp Pulse Resp B/P Pulse Ox O2 Delivery O2 Flow Rate FiO2 05/11/17 19:25 98.1 60 18 125/68 98 05/11/17 18:00 69 05/11/17 17:00 67 05/11/17 16:02 67 05/11/17 15:54 70 05/11/17 15:05 98.9 64 16 118/72 98 05/11/17 14:35 75 05/11/17 13:00 77 05/11/17 12:38 73 05/11/17 11:00 97.7 61 16 163/90 95 05/11/17 11:00 65 05/11/17 10:22 65 05/11/17 09:47 63 05/11/17 08:54 67 05/11/17 07:36 53 05/11/17 07:00 97.5 63 16 159/82 97 05/11/17 06:16 53 05/11/17 05:06 49 05/11/17 04:35 54 05/11/17 03:15 56 05/11/17 03:15 97.7 57 16 128/72 98 05/11/17 02:45 52 05/11/17 01:24 53 05/11/17 00:20 52 05/10/17 23:39 97.7 52 16 137/69 98 05/10/17 23:39 52 05/10/17 22:00 52 05/10/17 21:00 52 05/10/17 20:15 56 05/10/17 20:15 98.4 59 16 118/71 96 I/O 05/10/17 05/10/17 05/10/17 05/11/17 05/11/17 05/11/17 07:00 15:00 23:00 07:00 15:00 23:00 Intake Total 480 ml 400 ml 720 ml 1300 ml Output Total 900 ml 1003 ml 850 ml 1500 ml Balance -420 ml -603 ml -130 ml -200 ml Intake Oral 480 ml 400 ml 720 ml 1300 ml Output Urine Total 900 ml 1000 ml 850 ml 1500 ml Stool Total 3 ml # Voids 3 # Bowel Movements 1 Result Diagram: 05/10/17 0630 05/10/17 0630 Imaging Last Impressions Chest X-Ray 05/09/17 1632 Signed Impressions: Service Date/Time: Tuesday, May 09, 2017 17:03 - CONCLUSION: 1. Minimal left lower lobe atelectasis versus scarring. 2. Otherwise, no acute abnormality. Jeevan Ambriz MD Objective Remarks GENERAL: This is a pleasant, well-nourished, well-developed patient, sitting up in chair SKIN: No rashes or lesions. Cool and dry. HEAD: Atraumatic. Normocephalic. EYES: No scleral icterus. No injection or drainage. ENT: Nose without bleeding, purulent drainage. NECK: Trachea midline. No JVD or lymphadenopathy. CARDIOVASCULAR: Regular rate and rhythm without murmurs, gallops, or rubs. RESPIRATORY: Clear to auscultation. Breath sounds equal bilaterally. No wheezes , rales, or rhonchi. GASTROINTESTINAL: Abdomen soft, non-tender, nondistended. No guarding. MUSCULOSKELETAL: Extremities without clubbing, cyanosis, or edema. No calf tenderness. NEUROLOGICAL: Awake and alert. Motor and sensory grossly within normal limits. Normal speech. Medications and IVs Last Impressions Chest X-Ray 05/09/17 1632 Signed Impressions: Service Date/Time: Tuesday, May 09, 2017 17:03 - CONCLUSION: 1. Minimal left lower lobe atelectasis versus scarring. 2. Otherwise, no acute abnormality. Jeevan Ambriz MD A/P Problem List: (1) Near syncope ICD Code: R55 Status: Acute (2) Hypertensive urgency ICD Code: I16.0 Status: Acute Assessment and Plan Near Syncope - cardiac pauses 4-6 seconds on 24 hour Holter monitor (per patient ) - possible sick sinus syndrome - consult Dr. Clemons - assistance appreciated - serial EKGs and cardiac enzymes to r/o ACS - 12 lead EKG personally reviewed - SR with 1st degree AV block, incomplete right bundle branch block; enzymes negative thus far - Continuous cardiac telemetry to monitor for cardiac arrhythmias - Monitor I&O closely every shift - Monitor vital signs every 4 hours 05/11 Patient has been seen by Dr. Clemons who has started the patient on flecainide, apixaban on metoprolol. Patient had episode of symptomatic bradycardia overnight. Discussed case with Dr Clemons - KIMBERLYN metoprolol and monitor on telemetry. If stable may DC in am. Hypertensive Urgency - Blood pressure initially 170s to 190s systolic - Amlodipine 5 mg by mouth 1 dose given - Enalapril 2.5 mg IV every 6 hours blood pressure greater than 140/90 05/11 bp now stable. Continue to monitor BP. DVT prophylaxis - SCDs Osman Shirley MD May 11, 2017 19:56
--- NOTE | 2017-05-11 22:57 | HHI.PR ---
Objective Vital Signs Date Time Temp Pulse Resp B/P Pulse Ox O2 Delivery O2 Flow Rate FiO2 05/11/17 22:00 64 05/11/17 21:00 67 05/11/17 20:00 68 05/11/17 19:25 98.1 60 18 125/68 98 05/11/17 19:00 67 05/11/17 18:00 69 05/11/17 17:00 67 05/11/17 16:02 67 05/11/17 15:54 70 05/11/17 15:05 98.9 64 16 118/72 98 05/11/17 14:35 75 05/11/17 13:00 77 05/11/17 12:38 73 05/11/17 11:00 97.7 61 16 163/90 95 05/11/17 11:00 65 05/11/17 10:22 65 05/11/17 09:47 63 05/11/17 08:54 67 05/11/17 07:36 53 05/11/17 07:00 97.5 63 16 159/82 97 05/11/17 06:16 53 05/11/17 05:06 49 05/11/17 04:35 54 05/11/17 03:15 56 05/11/17 03:15 97.7 57 16 128/72 98 05/11/17 02:45 52 05/11/17 01:24 53 05/11/17 00:20 52 05/10/17 23:39 97.7 52 16 137/69 98 05/10/17 23:39 52 I/O 05/10/17 05/10/17 05/10/17 05/11/17 05/11/17 05/11/17 07:00 15:00 23:00 07:00 15:00 23:00 Intake Total 480 ml 400 ml 720 ml 1300 ml Output Total 900 ml 1003 ml 850 ml 1500 ml Balance -420 ml -603 ml -130 ml -200 ml Intake Oral 480 ml 400 ml 720 ml 1300 ml Output Urine Total 900 ml 1000 ml 850 ml 1500 ml Stool Total 3 ml # Voids 3 # Bowel Movements 1 Result Diagram: 05/10/17 0630 05/10/17 0630 Assessment and Plan Assessment and Plan Patient was evaluated earlier today. Metoprolol DC. Will continue on 50 mg of Flecainide twice/day If stable, can be DH in AM< Karina Clemons MD May 11, 2017 22:57
[2017-05-12] VITALS (12 sets, daily range): BP systolic 124–146; BP diastolic 67–87; PULSE 52–81; RESP 16–18; TEMP 97.4–97.9; O2SAT 98–100
--- NOTE | 2017-05-12 08:24 | PD.CARD.PN ---
Subjective Subjective Remarks Feels okay. No symptoms overnight. Objective Medications Current Medications Medications (Trade) Dose Ordered Sig/Jacklyn Route Start Time Stop Time Status Last Admin (NS Flush) 2 ml UNSCH PRN IV FLUSH 05/09/17 20:30 (NS Flush) 2 ml BID IV FLUSH 05/09/17 21:00 05/11/17 20:24 (Tylenol) 650 mg Q4H PRN PO 05/09/17 20:30 05/10/17 17:34 (Zofran Inj) 4 mg Q6H PRN IVP 05/09/17 20:30 (Narcan Inj) 0.4 mg UNSCH PRN IV 05/09/17 20:30 (Senokot) 17.2 mg Q12H PRN PO 05/09/17 20:30 (Vasotec Inj) 2.5 mg Q6H PRN IV PUSH 05/09/17 23:30 05/11/17 11:10 (Metamucil Smooth Texture Sf/ Gf Pkt) 1 pkt DAILY PRN PO 05/10/17 06:15 (Eliquis) 5 mg BID PO 05/10/17 09:00 05/11/17 20:24 (Colace) 100 mg DAILY PO 05/10/17 09:00 (Tambocor) 50 mg Q12HR PO 05/10/17 09:15 05/11/17 20:24 (Pill Splitter) 1 ea UNSCH PRN OTHER 05/10/17 09:15 Vital Signs / I&O Vital Signs Date Time Temp Pulse Resp B/P Pulse Ox O2 Delivery O2 Flow Rate FiO2 05/12/17 06:00 60 05/12/17 05:00 57 05/12/17 04:00 55 05/12/17 03:00 69 05/12/17 03:00 97.5 69 18 142/67 98 05/12/17 02:00 56 05/12/17 01:00 52 05/12/17 00:00 53 05/11/17 23:00 61 05/11/17 23:00 97.5 66 18 134/74 96 05/11/17 22:00 64 05/11/17 21:00 67 05/11/17 20:00 68 05/11/17 19:25 98.1 60 18 125/68 98 05/11/17 19:00 67 05/11/17 18:00 69 05/11/17 17:00 67 05/11/17 16:02 67 05/11/17 15:54 70 05/11/17 15:05 98.9 64 16 118/72 98 05/11/17 14:35 75 05/11/17 13:00 77 05/11/17 12:38 73 05/11/17 11:00 97.7 61 16 163/90 95 05/11/17 11:00 65 05/11/17 10:22 65 05/11/17 09:47 63 05/11/17 08:54 67 I/O 05/11/17 05/11/17 05/11/17 05/12/17 05/12/17 05/12/17 07:00 15:00 23:00 07:00 15:00 23:00 Intake Total 720 ml 1300 ml 720 ml Output Total 850 ml 1500 ml 1800 ml Balance -130 ml -200 ml -1080 ml Intake Oral 720 ml 1300 ml 720 ml Output Urine Total 850 ml 1500 ml 1800 ml # Bowel Movements 1 Physical Exam GENERAL: Well-nourished, well-developed patient. SKIN: Warm and dry. HEAD: Normocephalic. EYES: No scleral icterus. No injection or drainage. NECK: Supple, trachea midline. No JVD or lymphadenopathy. CARDIOVASCULAR: Regular rate and regular rhythm without murmurs, gallops, or rubs. RESPIRATORY: Breath sounds equal bilaterally. No accessory muscle use. GASTROINTESTINAL: Abdomen soft, non-tender, nondistended. EXTREMITIES: No cyanosis, or edema. NEUROLOGICAL: Awake, alert, and oriented x 3. Non-focal. Assessment and Plan Problem List: (1) Accelerated hypertension Assessment and Plan: Blood pressure well controlled on current medications. No changes recommended. (2) Bradycardia Assessment and Plan: Metoprolol DC'd, amlodipine DC'd. No significant or symptomatic bradycardia overnight. Stable for discharge home from EP standpoint. Follow-up with Dr. Clemons in 2 weeks per my discussion with him. Assessment and Plan Discussed with patient, RN, Dr. Clemons. Bhavna Crouch May 12, 2017 08:24
[2017-05-12] MEDS: SODIUM CHLORIDE 0.9% FLUSH 10 ML FLUSH IV FLUSH SCH (09:07)
[2017-05-12] MEDS: FLECAINIDE ACETATE 100 MG TAB PO SCH (09:07)
[2017-05-12] MEDS: DOCUSATE SODIUM 100 MG CAP PO SCH (09:08)
[2017-05-12] MEDS: APIXABAN 5 MG TABLET PO SCH (09:08)
[2017-05-12] MEDS ORDERED: FLEC1TAB8 PO (10:21)
--- NOTE | 2017-05-12 10:21 | HHI.DCPOC ---
Discharge Care Plan Diagnosis: (1) Dizziness (2) Near syncope (3) Dysrhythmias (4) Bradycardia Goals to Promote Your Health * To prevent worsening of your condition and complications * To maintain your health at the optimal level Directions to Meet Your Goals Take your medications as prescribed Follow your dietary instruction Follow activity as directed Keep your appointments as scheduled Take your immunizations and boosters as scheduled If your symptoms worsen call your PCP, if no PCP go to Urgent Care Center or Emergency Room Smoking is Dangerous to Your Health. Avoid second hand smoke Call the 24-hour hour crisis hotline for domestic abuse at Sam Meredith MD May 12, 2017 10:21
--- NOTE | 2017-05-12 10:27 | HHI.DS ---
Discharge Summary Admission Date May 09, 2017 at 18:13 Discharge Date: May 12, 2017 Admitting Diagnosis syncope/dysrhythmia (1) Near syncope ICD Code: R55 (2) Hypertensive urgency ICD Code: I16.0 Procedures None Brief History - From Admission HPI from the admitting physician. Referred to ER by Dr. Clemons for abnormal 24 hour holter monitor results; has been having dizziness. Recently had flecainide started on April 17. Had a second ablation for a fib in January 2017- has been on metoprolol 25 mg BID since - 6 weeks after ablation, patient started feeling "poorly" again with fatigue. First ablation was [address] Clemons 10/2012. On Eliquis for anticoagulation. The patient denies palpitations, chest pain, or shortness of breath. On May 04, the patient states that she nearly passed out on the background of feeling dizzy since starting Flecainide. The patient says she has been evaluated as an outpatient by Dr. Clemons for dizziness and near- syncope. He evaluated a 24 hour holter monitor that she turned in yesterday and when Dr. Clemons read it, he told her to come to the ER. She says that he saw her in the ED waiting area before she had a room; there's no notation of this in the medical record. The patient said Dr. Clemons indicated he would adjust her medications, possibly changing Metoprolol to extended release form - Metoprolol 25 mg XL once daily. He also mentioned a possible pacemaker placement. The patient complains that her bowels looser than normal since on Flecainide No black or red stool, pain or burning with urination Denies CAD, hypertension, diabetes, COPD, stroke, seizures, thyroid problems, or cancers. CBC/BMP: 05/10/17 0630 05/10/17 0630 Significant Findings Laboratory Tests Test 05/09/17 05/09/17 05/10/17 05/10/17 16:55 17:35 00:30 06:30 Monocytes (%) (Auto) 12.0 % 11.7 % (0.0-8.0) (0.0-8.0) Chloride Level 108 MEQ/L 109 MEQ/L (98-107) (98-107) Estimat Glomerular Filtration 58 ML/MIN (>89) 70 ML/MIN (>89) Rate Troponin I LESS THAN 0.02 LESS THAN 0.02 LESS THAN 0.02 NG/ML NG/ML NG/ML (0.02-0.05) (0.02-0.05) (0.02-0.05) Imaging Last Impressions Chest X-Ray 05/09/17 1632 Signed Impressions: Service Date/Time: Tuesday, May 09, 2017 17:03 - CONCLUSION: 1. Minimal left lower lobe atelectasis versus scarring. 2. Otherwise, no acute abnormality. Jeevan Ambriz MD PE at Discharge GENERAL: This is a well-nourished, well-developed patient, in no apparent distress. CARDIOVASCULAR: Normal rate and regular rhythm without murmurs, gallops, or rubs. RESPIRATORY: Good respiratory efforts. Breath sounds equal and clear to auscultation bilaterally. GASTROINTESTINAL: Abdomen soft, non-tender, non-distended. Normal active bowel sounds MUSCULOSKELETAL: Extremities without cyanosis, or edema. NEURO: Alert & Oriented x4 to person, place, time, situation. Moves all ext x4 PSYCH: Appropriate mood and affect. Pt update on day of discharge Patient reports she is feeling great. No chest pain, shortness of breath, or lightheadedness. Anxious to go home. Hospital Course A 71-year-old female admitted and treated for the following: Near Syncope - cardiac pauses 4-6 seconds on 24 hour Holter monitor (per patient ) - possible sick sinus syndrome -Patient was seen and evaluated by Dr. Clemons. Her medications were adjusted. Metoprolol discontinued. She was started on flecainide. Symptoms resolved. Patient discharged in good condition to follow-up outpatient with cardiology. Hypertensive Urgency - Blood pressure initially 170s to 190s systolic . She received Amlodipine 5 mg by mouth 1 dose, BP normolized. Pt Condition on Discharge: Good Discharge Disposition: Discharge Home Discharge Time: <= 30 minutes Discharge Instructions DIET: Follow Instructions for: Heart Healthy Diet Activities you can perform: Regular-No Restrictions Follow up Referrals: Cardiology - 2 Weeks with Karina Clemons MD New Medications: Flecainide (Flecainide) 50 Mg Tab 50 MG PO BID Regulate Heart Beat #60 Ref 0 TAB Continued Medications: Apixaban (Eliquis) 5 Mg Tab 5 MG PO BID Blood Clot Prevention #60 Ref 0 TAB Calcium Carbonate-Cholecalciferol (Calcium 600 with Vitamin D) 600-400 mg-Unit Tab 1 TAB PO DAILY Calcium Supplement Ref 0 TAB Docusate Sodium (Docusate Sodium) 100 Mg Cap 100 MG PO DAILY Prevent Constipation #60 Ref 0 CAP Psyllium Powder (Metamucil Original Texture) 48.57 % Pow 1 SCOOP PO DAILY 1 rounded TEASPOON in 8 oz of liquid at the first sign of irregularity. PRN CONSTIPATION Ref 0 CONTAINER ([Madison]) Discontinued Medications: Metoprolol Tartrate (Metoprolol Tartrate) 50 Mg Tab 50 MG PO BID #60 Ref 0 TAB Sam Meredith MD May 12, 2017 10:27
== END 2017-05-12 12:39 | disposition home or self-care (01) | DRG 310 ==
LOC: NEPC 15:33 → NEDA 18:13 → HCIN 22:24
PROVIDERS: ADMIT Family Medicine; ATTEND Family Medicine
DX: I49.5 Sick sinus syndrome (principal); I48.91 Unspecified atrial fibrillation; I10 Essential (primary) hypertension; R55 Syncope and collapse; R00.1 Bradycardia, unspecified; I44.0 Atrioventricular block, first degree; I45.19 Other right bundle-branch block; Z79.02 Long term (current) use of antithrombotics/antiplatelets; Z88.1 Allergy status to other antibiotic agents; Z88.7 Allergy status to serum and vaccine; Z86.718 Personal history of other venous thrombosis and embolism; Z80.3 Family history of malignant neoplasm of breast; Z82.49 Family history of ischemic heart disease and other diseases of the circulatory system; I16.0 Hypertensive urgency
CPT/HCPCS: 71010; 76937; 80048; 80053; 82550; 83735; 84484; 85025; 85610; 85730; 93005

== ENCOUNTER 2017-05-31 09:07 | Inpatient (IN) | payer MEDICARE ==
[2017-05-31] VITALS (16 sets, daily range): BP systolic 111–193; BP diastolic 55–105; PULSE 55–140; RESP 16–20; TEMP 97.3–98.3; O2SAT 96–100
[~2017-05-31] VITALS: Ht 172.7 cm; Wt 81.5 kg
[~2017-05-31 09:07] MED LIST changes: +FLEC1TAB8 PO; -METO50TA PO
[2017-05-31] MEDS ORDERED: GLUC500T4 PO (09:20)
[2017-05-31] MEDS ORDERED: VOLT1GEL4 (09:20)
[2017-05-31] MEDS ORDERED: SODIUM CHLORID 0.9% 500 ML INJ 500 ML IV ONE (09:30)
[2017-05-31] MEDS ORDERED: DILTIAZEM HCL 25 MG/5 ML VIAL IV PUSH ONE (09:30)
[2017-05-31] MEDS ORDERED: SODIUM CHLORIDE 0.9% FLUSH 10 ML FLUSH IVF PRN (09:30)
[2017-05-31] MEDS ORDERED: ASPIRIN 81 MG CHEW TAB PO ONE (09:30)
[2017-05-31 09:45] LABS: AUTOMATED NEUTROPHIL # 3.9 TH/MM3 (1.8-7.7); BASOPHIL # 0.2 TH/MM3 (0-0.2); BASOPHIL % 3.6 % (0.0-2.0); EOSINOPHIL % 0.1 % (0.0-4.0); HEMATOCRIT 45.7 % (35.0-46.0); HEMO FLAGS DIFF FINAL; LYMPH % 19.8 % (9.0-44.0); LYMPHOCYTE # 1.1 TH/MM3 (1.0-4.8); MEAN CELL VOLUME 93.1 FL (80.0-100.0); MEAN CORPUSCULAR HEMOGLOBIN 31.7 PG (27.0-34.0); MONO % 6.6 % (0.0-8.0); NEUT % 69.9 % (16.0-70.0); PLATELET COUNT 232 TH/MM3 (150-450); RED BLOOD COUNT 4.91 MIL/MM3 (4.00-5.30); RED CELL DISTRIBUTION WIDTH 11.7 % (11.6-17.2); WHITE BLOOD COUNT 5.6 TH/MM3 (4.0-11.0)
--- NOTE | 2017-05-31 09:53 | PD ---
HPI Chief Complaint: Cardiac Complaint Time Seen by Provider: 09:21 Travel History International Travel<30 days: No Contact w/Intl Traveler<30days: No Traveled to known affect area: No History of Present Illness HPI Patient is a 71-year-old female with history of paroxysmal atrial fibrillation, presents to emergency room with complaints of A. fib with RVR. Patient reports that she began to have palpitations which awoke her from sleep around 4:30 AM this morning. Patient reports that she checked her heart rate and it was 85. Patient reports that at 7:20 AM, her heart rate was 122. Patient reports that she feels as if she is having palpitations and rapid heart rate consistent with A. fib. Patient reports that she did see Dr. Clemons 2 weeks ago and she was in NSR at that time. She is currently taking Eliquis as well as Flecainide for her afib. Reports that she was taking metoprolol in the past for her afib - but it dropped her HR to the 30's so she was taken off of it. Patient reports that she also has history of 2 ablations in the past. Her last ablation was in January of 2017. Patient denies any chest pain or shortness of breath at this time. Patient with no other complaints. PFSH Past Medical History Hx Anticoagulant Therapy: Yes (ELOQUIS ) Anemia: Yes Arthritis: Yes Atrial Fibrillation: Yes (HISTORY OF) Blood Disorders: No Heart Rhythm Problems: Yes Cancer: No Cardiac Catheterization: Yes Cardiovascular Problems: Yes (AFIB) High Cholesterol: No Chest Pain: No Congestive Heart Failure: No Diabetes: No Diminished Hearing: No Diverticulitis: Yes Deep Vein Thrombosis: Yes (LEFT LEG R/T AFIB: 2011) Endocrine: No Gastrointestinal Disorders: Yes (DIVERTICULITIS, GALLBLADDER LESION) Glaucoma: No Genitourinary: No Hepatitis: No Hiatal Hernia: Yes Hypertension: Yes Immune Disorder: No Implanted Vascular Access Dvce: No Medical other: Yes (DIVERTICULOSIS) Musculoskeletal: No Neurologic: No Psychiatric: No Reproductive: No Integumentary: No Pneumonia: Yes Thyroid Disease: No Menopausal: Yes : 2 Para: 2 Past Surgical History Abdominal Surgery: Yes Appendectomy: Yes Cardiac Surgery: Yes (ablation) Cholecystectomy: Yes Gynecologic Surgery: Yes (HYSTERECTOMY) Hysterectomy: Yes (91) Oral Surgery: Yes (TONSILECTOMY) Pacemaker: No Tonsillectomy: Yes Other Surgery: Yes (CARDIAC ABLASION) Social History Alcohol Use: No Tobacco Use: No Substance Use: No Allergies-Medications (Allergen,Severity, Reaction): Coded Allergies: Erythromycin (Verified Allergy, Severe, 05/31/17) Influenza Virus Vaccine (Verified Allergy, Severe, 05/31/17) Ciprofloxacin (Verified Allergy, Unknown, 05/31/17) Reported Meds & Prescriptions Reported Meds & Active Scripts Active Flecainide (Flecainide Acetate) 50 Mg Tab 50 Mg PO BID Reported Voltaren (Diclofenac Sodium) 100 Gm Gel..gram. Glucosamine-Chondroitin 500-400 Mg Tab 1 Tab PO DAILY Metamucil Original Texture (Psyllium Hydrophilic Mucilloid) 48.57 % Pow 1 Scoop PO DAILY PRN 1 rounded TEASPOON in 8 oz of liquid at the first sign of irregularity. Docusate Sodium 100 Mg Cap 100 Mg PO DAILY Calcium 600 with Vitamin D (Calcium Carbonate-Cholecalciferol) 600-400 mg-Unit Tab 1 Tab PO DAILY Eliquis (Apixaban) 5 Mg Tab 5 Mg PO BID [Madison] Review of Systems General / Constitutional: No: Fever Eyes: No: Visual changes HENT: No: Headaches Cardiovascular: Positive: Palpitations, Irregular Rhythm, Tachycardia, No: Chest Pain or Discomfort Respiratory: No: Shortness of Breath Gastrointestinal: No: Abdominal Pain Genitourinary: No: Dysuria Musculoskeletal: No: Pain Skin: No Rash Neurologic: No: Weakness Psychiatric: No: Depression Endocrine: No: Polydipsia Hematologic/Lymphatic: No: Easy Bruising Physical Exam Narrative GENERAL: Mild distress SKIN: Focused skin assessment warm/dry. HEAD: Atraumatic. Normocephalic. EYES: Pupils equal and round. No scleral icterus. No injection or drainage. ENT: No nasal bleeding or discharge. Mucous membranes pink and moist. NECK: Trachea midline. No JVD. CARDIOVASCULAR: Irregular rate and rhythm. No murmur appreciated. RESPIRATORY: No accessory muscle use. Clear to auscultation. Breath sounds equal bilaterally. GASTROINTESTINAL: Abdomen soft, non-tender, nondistended. Hepatic and splenic margins not palpable. MUSCULOSKELETAL: No obvious deformities. No clubbing. No cyanosis. No edema. NEUROLOGICAL: Awake and alert. No obvious cranial nerve deficits. Motor grossly within normal limits. Normal speech. PSYCHIATRIC: Appropriate mood and affect; insight and judgment normal. Data Data Last Documented VS Vital Signs Date Time Temp Pulse Resp B/P Pulse Ox O2 Delivery O2 Flow Rate FiO2 05/31/17 11:57 117 20 158/88 98 Nasal Cannula 2 05/31/17 09:12 98.0 Orders Electrocardiogram (05/31/17 09:27) B-Type Natriuretic Peptide (05/31/17 09:27) Ckmb (Isoenzyme) Profile (05/31/17 09:27) Complete Blood Count With Diff (05/31/17 09:27) Comprehensive Metabolic Panel (05/31/17 09:27) Magnesium (Mg) (05/31/17 09:27) Prothrombin Time / Inr (Pt) (05/31/17 09:27) Act Partial Throm Time (Ptt) (05/31/17 09:27) Troponin I (05/31/17 09:27) Chest, Single Ap (05/31/17 09:27) Ecg Monitoring (05/31/17 09:27) Iv Access Insert/Monitor (05/31/17 09:27) Oximetry (05/31/17 09:27) Aspirin Chew (Aspirin Chew) (05/31/17 09:30) Sodium Chloride 0.9% Flush (Ns Flush) (05/31/17 09:30) Sodium Chlorid 0.9% 500 Ml Inj (Ns 500 M (05/31/17 09:30) Diltiazem Inj (Cardizem Inj) (05/31/17 09:30) Diltiazem (Cardizem) (05/31/17 10:00) Potassium Chloride (Kcl) (05/31/17 10:30) Electrocardiogram (05/31/17 ) Vital Signs (Adult) Q15MX4,Q4H (05/31/17 10:39) Superintendent Horticulture / Telemetry YONY.Q8H (05/31/17 10:39) Cardiac Rhythm YONY.Q8H (05/31/17 10:39) Notify Dr: Other (05/31/17 10:39) Diltiazem Inj (Cardizem Inj) (05/31/17 10:45) Consult Cardiology (05/31/17 ) (Hub Use Only)Inp Phy Cons/Ref (05/31/17 ) Admit Order (Ed Use Only) (05/31/17 11:58) Labs Laboratory Tests Test 05/31/17 09:30 White Blood Count 5.6 TH/MM3 Red Blood Count 4.91 MIL/MM3 Hemoglobin 15.6 GM/DL Hematocrit 45.7 % Mean Corpuscular Volume 93.1 FL Mean Corpuscular Hemoglobin 31.7 PG Mean Corpuscular Hemoglobin 34.0 % Concent Red Cell Distribution Width 11.7 % Platelet Count 232 TH/MM3 Mean Platelet Volume 8.9 FL Neutrophils (%) (Auto) 69.9 % Lymphocytes (%) (Auto) 19.8 % Monocytes (%) (Auto) 6.6 % Eosinophils (%) (Auto) 0.1 % Basophils (%) (Auto) 3.6 % Neutrophils # (Auto) 3.9 TH/MM3 Lymphocytes # (Auto) 1.1 TH/MM3 Monocytes # (Auto) 0.4 TH/MM3 Eosinophils # (Auto) 0.0 TH/MM3 Basophils # (Auto) 0.2 TH/MM3 CBC Comment DIFF FINAL Differential Comment Prothrombin Time 11.1 SEC Prothromb Time International 1.0 RATIO Ratio Activated Partial 30.3 SEC Thromboplast Time Sodium Level 140 MEQ/L Potassium Level 3.4 MEQ/L Chloride Level 107 MEQ/L Carbon Dioxide Level 24.4 MEQ/L Anion Gap 9 MEQ/L Blood Urea Nitrogen 15 MG/DL Creatinine 0.91 MG/DL Estimat Glomerular Filtration 61 ML/MIN Rate Random Glucose 136 MG/DL Calcium Level 9.3 MG/DL Magnesium Level 2.0 MG/DL Total Bilirubin 0.4 MG/DL Aspartate Amino Transf 25 U/L (AST/SGOT) Alanine Aminotransferase 29 U/L (ALT/SGPT) Alkaline Phosphatase 79 U/L Total Creatine Kinase 95 U/L Troponin I LESS THAN 0.02 NG/ML B-Type Natriuretic Peptide 87 PG/ML Total Protein 8.1 GM/DL Albumin 4.1 GM/DL MDM Medical Decision Making Medical Screen Exam Complete: Yes Emergency Medical Condition: Yes Interpretation(s) EKG at 921: afib with rvr at 126bpm, qt/qtc: 305/380 Vital Signs Date Time Temp Pulse Resp B/P Pulse Ox O2 Delivery O2 Flow Rate FiO2 05/31/17 09:37 94 20 193/105 98 Nasal Cannula 2 05/31/17 09:37 98 05/31/17 09:12 98.0 137 16 154/102 97 Differential Diagnosis Differential includes A. fib with RVR, arrhythmia, electrolyte abnormality Narrative Course 71-year-old female who presents to emergency room with complaints of rapid heart rate. She does have history of paroxysmal A. fib and does see Dr. Clemons for this. Patient complaining of palpitations and rapid heart rate this morning , no chest pain or shortness of breath. Patient was placed on a staff writer upon arrival to the emergency room, patient was found to be in A. fib with RVR. IV Cardizem ordered for patient. Patient rate controlled after 1 dose of iv cardizem. PO dose of cardizem ordered. Vital Signs Date Time Temp Pulse Resp B/P Pulse Ox O2 Delivery O2 Flow Rate FiO2 05/31/17 10:16 106 20 192/94 98 Nasal Cannula 2 05/31/17 09:37 94 20 193/105 98 Nasal Cannula 2 05/31/17 09:37 98 05/31/17 09:12 98.0 137 16 154/102 97 Laboratory Tests Test 05/31/17 09:30 White Blood Count 5.6 TH/MM3 (4.0-11.0) Red Blood Count 4.91 MIL/MM3 (4.00-5.30) Hemoglobin 15.6 GM/DL (11.6-15.3) Hematocrit 45.7 % (35.0-46.0) Mean Corpuscular Volume 93.1 FL (80.0-100.0) Mean Corpuscular Hemoglobin 31.7 PG (27.0-34.0) Mean Corpuscular Hemoglobin 34.0 % Concent (32.0-36.0) Red Cell Distribution Width 11.7 % (11.6-17.2) Platelet Count 232 TH/MM3 (150-450) Mean Platelet Volume 8.9 FL (7.0-11.0) Neutrophils (%) (Auto) 69.9 % (16.0-70.0) Lymphocytes (%) (Auto) 19.8 % (9.0-44.0) Monocytes (%) (Auto) 6.6 % (0.0-8.0) Eosinophils (%) (Auto) 0.1 % (0.0-4.0) Basophils (%) (Auto) 3.6 % (0.0-2.0) Neutrophils # (Auto) 3.9 TH/MM3 (1.8-7.7) Lymphocytes # (Auto) 1.1 TH/MM3 (1.0-4.8) Monocytes # (Auto) 0.4 TH/MM3 (0-0.9) Eosinophils # (Auto) 0.0 TH/MM3 (0-0.4) Basophils # (Auto) 0.2 TH/MM3 (0-0.2) CBC Comment DIFF FINAL Differential Comment Prothrombin Time 11.1 SEC (9.8-11.6) Prothromb Time International 1.0 RATIO Ratio Activated Partial 30.3 SEC Thromboplast Time (24.3-30.1) Sodium Level 140 MEQ/L (136-145) Potassium Level 3.4 MEQ/L (3.5-5.1) Chloride Level 107 MEQ/L (98-107) Carbon Dioxide Level 24.4 MEQ/L (21.0-32.0) Anion Gap 9 MEQ/L (5-15) Blood Urea Nitrogen 15 MG/DL (7-18) Creatinine 0.91 MG/DL (0.50-1.00) Estimat Glomerular Filtration 61 ML/MIN (>89) Rate Random Glucose 136 MG/DL (74-106) Calcium Level 9.3 MG/DL (8.5-10.1) Magnesium Level 2.0 MG/DL (1.5-2.5) Total Bilirubin 0.4 MG/DL (0.2-1.0) Aspartate Amino Transf 25 U/L (15-37) (AST/SGOT) Alanine Aminotransferase 29 U/L (10-53) (ALT/SGPT) Alkaline Phosphatase 79 U/L (45-117) Total Creatine Kinase 95 U/L (26-192) Troponin I LESS THAN 0.02 NG/ML (0.02-0.05) B-Type Natriuretic Peptide 87 PG/ML (0-100) Total Protein 8.1 GM/DL (6.4-8.2) Albumin 4.1 GM/DL (3.4-5.0) Last Impressions Chest X-Ray 05/31/17 4195 Signed Impressions: Service Date/Time: Wednesday, May 31, 2017 09:32 - CONCLUSION: No acute disease. Miguelito Estrella MD FACR Repeat ekg: aflutter at [address] Clemons - he is out of town, paged Dr. Lr who is transportation analyst Patient's HR not 130 - will start cardizem gtt, will admit to [facility] case reviewed with Dr. Lr who is transportation analyst for Dr. Joel, request Cardizem Gtt, request patient be transferred to [facility] for further management Critical Care Narrative Aggregate critical care time was 30 minutes. Time to perform other separately billable procedures was not included in the critical care time. My time did not include minutes spent treating any other patients simultaneously or on activities that did not directly contribute to the patient's treatment. The services I provided to this patient were to treat and/or prevent clinically significant deterioration that could result in: , decompensation, deterioration I provided critical care services requiring my management, as noted below: Chart data review, documentation time, medication orders and management, vital sign assessments/reviewing monitor data, ordering and reviewing lab tests, ordering and interpreting/reviewing x-rays and diagnostic studies, care of the patient and discussion of the patient with the admitting physicians. Physician Communication Physician Communication case reviewed with dr. renee who accepts pt to service Diagnosis Primary Impression: Atrial fibrillation with RVR Admitting Information Admitting Physician Requests: Admit Pretty Mcdonald DO May 31, 2017 09:53
--- NOTE | 2017-05-31 09:57 | RADRPT ---
EXAM DATE/TIME: 05/31/2017 09:32 [facility] COMPARISON: CHEST SINGLE AP, May 09, 2017, 17:03. INDICATIONS : Palpitations since this morning. MEDICAL HISTORY : Hypertension. Deep venous thrombosis. History of Afib. SURGICAL HISTORY : Cardiac cath. Ablation. ENCOUNTER: Initial ACUITY: 1 day PAIN SCORE: 10 LOCATION: Bilateral chest FINDINGS: A single view of the chest demonstrates the lungs to be symmetrically aerated without evidence of mas s, infiltrate or effusion. The cardiomediastinal contours are unremarkable. Scoliosis is noted. CONCLUSION: No acute disease. Miguelito Estrella MD FACR on May 31, 2017 at 9:54 Board Certified Radiologist. This report was verified electronically.
[2017-05-31 10:00] LABS: ANION GAP 9 MEQ/L (5-15); BICARBONATE 24.4 MEQ/L (21.0-32.0); BLOOD UREA NITROGEN 15 MG/DL (7-18); CHLORIDE 107 MEQ/L (98-107); POTASSIUM 3.4 MEQ/L (3.5-5.1); SODIUM (NA) 140 MEQ/L (136-145)
[2017-05-31] MEDS ORDERED: DILTIAZEM HCL 30 MG TAB PO ONE (10:00)
[2017-05-31 10:01] LABS: APTT (PATIENT) 30.3 SEC (24.3-30.1); PROTHROMBIN TIME - PATIENT 11.1 SEC (9.8-11.6)
[2017-05-31 10:03] LABS: ALT (GPT) 29 U/L (10-53); GLOMERULAR FILTRATION RATE 61 ML/MIN (>89)
[2017-05-31 10:05] LABS: AST (GOT) 25 U/L (15-37); TOTAL BILIRUBIN ADULT 0.4 MG/DL (0.2-1.0)
[2017-05-31 10:06] LABS: ALKALINE PHOSPHATASE 79 U/L (45-117)
[2017-05-31 10:07] LABS: CREATINE KINASE 95 U/L (26-192)
[2017-05-31] MEDS ORDERED: POTASSIUM CHLORIDE 10 MEQ CONTROLLED RELEASE TAB PO ONE (10:30)
[2017-05-31] MEDS ORDERED: DILTIAZEM INJ 125 MG in SODIUM CHLORIDE 0.9% INJ 100 ML IV SCH ×2 (10:45→16:00)
[2017-05-31] MEDS ORDERED: ONDANSETRON HCL 4 MG/2 ML VIAL IVP PRN (13:00)
[2017-05-31] MEDS ORDERED: hydrALAZINE HCL 20 MG/ML VIAL IV PUSH PRN (14:15)
--- NOTE | 2017-05-31 14:21 | HHI.HP ---
HPI Service [facility] Primary Care Physician Robert Peres M.D. Admission Diagnosis Afib with RVR Diagnoses: Chief Complaint: palpatiations Travel History International Travel<30 Days: No Contact w/Intl Traveler <30 Da: No Traveled to Known Affected Are: No History of Present Illness Patient is a 71 year old female with Afib and HTN, She has had severe heart palpitations for one day and came to the ER for evaluation of this. She had a heart rate of 143 and this improved with diltiazem gtt. She was recommended for further inpatient eval by cardiology. She has had 2 ablations in the past and her HR had improved. Her flecanide and BB were recently decreased by her cardiology. Review of Systems Constitutional: DENIES: Diaphoretic episodes, Fatigue, Fever, Weight gain, Weight loss, Chills, Dizziness, Change in appetite, Night Sweats Endocrine: DENIES: Abnorml menstrual pattern, Heat/cold intolerance, Polydipsia , Polyuria, Polyphagia Eyes: DENIES: Blurred vision, Diplopia, Eye inflammation, Eye pain, Vision loss , Photosensitivity, Double Vision Respiratory: DENIES: Apneas, Cough, Snoring, Wheezing, Hemoptysis, Sputum production, Shortness of breath Cardiovascular: COMPLAINS OF: Palpitations, DENIES: Chest pain, Syncope, Dyspnea on Exertion, PND, Lower Extremity Edema, Orthopnea, Claudication Gastrointestinal: DENIES: Abdominal pain, Black stools, Bloody stools, Constipation, Diarrhea, Nausea, Vomiting, Difficulty Swallowing, Anorexia Genitourinary: DENIES: Abnormal vaginal bleeding, Dysmenorrhea, Dyspareunia, Sexual dysfunction, Urinary frequency, Urinary incontinence, Urgency, Hematuria , Dysuria, Nocturia, Vaginal discharge Musculoskeletal: DENIES: Joint pain, Muscle aches, Stiffness, Joint Swelling, Back pain, Neck pain Integumentary: DENIES: Abnormal pigmentation, Pruritus, Rash, Nail changes, Breast masses, Breast skin changes, Nipple discharge Hematologic/lymphatic: DENIES: Bruising, Lymphadenopathy Immunologic/allergic: DENIES: Eczema, Urticaria Neurologic: DENIES: Abnormal gait, Headache, Localized weakness, Paresthesias, Seizures, Speech Problems, Tremor, Poor Balance Psychiatric: DENIES: Anxiety, Confusion, Mood changes, Depression, Hallucinations, Agitation, Suicidal Ideation, Homicidal Ideation, Delusions Past Family Social History Past Medical History afib htn DVT Past Surgical History appy gb ablation x 2 RO[facility]ARY Reported Medications Reviewed in the EMR, decreased flecanide, off BB per cardiology Allergies: Coded Allergies: Erythromycin (Verified Allergy, Severe, 05/31/17) Influenza Virus Vaccine (Verified Allergy, Severe, 05/31/17) Ciprofloxacin (Verified Allergy, Unknown, 05/31/17) Active Ordered Medications Reviewed in the EMR Family History Mom had [employer] Social History , retired, no tobacco no etoh Physical Exam Vital Signs Vital Signs Date Time Temp Pulse Resp B/P Pulse Ox O2 Delivery O2 Flow Rate FiO2 05/31/17 13:39 140 20 170/84 96 Nasal Cannula 2 05/31/17 12:41 117 20 159/77 96 05/31/17 11:57 117 20 158/88 98 Nasal Cannula 2 05/31/17 11:09 117 20 179/85 98 Nasal Cannula 2 05/31/17 10:38 133 20 166/80 96 Nasal Cannula 2 05/31/17 10:16 106 20 192/94 98 Nasal Cannula 2 05/31/17 09:37 94 20 193/105 98 Nasal Cannula 2 05/31/17 09:37 98 05/31/17 09:12 98.0 137 16 154/102 97 Physical Exam GENERAL: This is a well-nourished, well-developed patient, in no apparent distress. SKIN: No rashes, ecchymoses or lesions. Cool and dry. HEAD: Atraumatic. Normocephalic. No temporal or scalp tenderness. EYES: Pupils equal round and reactive. Extraocular motions intact. No scleral icterus. No injection or drainage. ENT: Nose without bleeding, purulent drainage or septal hematoma. Throat without erythema, tonsillar hypertrophy or exudate. Uvula midline. Airway patent. NECK: Trachea midline. No JVD or lymphadenopathy. Supple, nontender, no meningeal signs. CARDIOVASCULAR: afib rvr without murmurs, gallops, or rubs. RESPIRATORY: Clear to auscultation. Breath sounds equal bilaterally. No wheezes , rales, or rhonchi. GASTROINTESTINAL: Abdomen soft, non-tender, nondistended. No hepato-splenomegaly , or palpable masses. No guarding. MUSCULOSKELETAL: Extremities without clubbing, cyanosis, or edema. No joint tenderness, effusion, or edema noted. No calf tenderness. Negative Homans sign bilaterally. NEUROLOGICAL: Awake and alert. Cranial nerves II through XII intact. Motor and sensory grossly within normal limits. Five out of 5 muscle strength in all muscle groups. Normal speech. Laboratory Laboratory Tests Test 05/31/17 09:30 White Blood Count 5.6 Red Blood Count 4.91 Hemoglobin 15.6 Hematocrit 45.7 Mean Corpuscular Volume 93.1 Mean Corpuscular Hemoglobin 31.7 Mean Corpuscular Hemoglobin 34.0 Concent Red Cell Distribution Width 11.7 Platelet Count 232 Mean Platelet Volume 8.9 Neutrophils (%) (Auto) 69.9 Lymphocytes (%) (Auto) 19.8 Monocytes (%) (Auto) 6.6 Eosinophils (%) (Auto) 0.1 Basophils (%) (Auto) 3.6 Neutrophils # (Auto) 3.9 Lymphocytes # (Auto) 1.1 Monocytes # (Auto) 0.4 Eosinophils # (Auto) 0.0 Basophils # (Auto) 0.2 CBC Comment DIFF FINAL Differential Comment Prothrombin Time 11.1 Prothromb Time International 1.0 Ratio Activated Partial 30.3 Thromboplast Time Sodium Level 140 Potassium Level 3.4 Chloride Level 107 Carbon Dioxide Level 24.4 Anion Gap 9 Blood Urea Nitrogen 15 Creatinine 0.91 Estimat Glomerular Filtration 61 Rate Random Glucose 136 Calcium Level 9.3 Magnesium Level 2.0 Total Bilirubin 0.4 Aspartate Amino Transf 25 (AST/SGOT) Alanine Aminotransferase 29 (ALT/SGPT) Alkaline Phosphatase 79 Total Creatine Kinase 95 Troponin I LESS THAN 0.02 B-Type Natriuretic Peptide 87 Total Protein 8.1 Albumin 4.1 Result Diagram: 05/31/1792905/31/17929 Imaging Last Impressions Chest X-Ray 05/31/17926 Signed Impressions: Service Date/Time: Monday, May 31, 2017 09:32 - CONCLUSION: No acute disease. Miguelito Estrella MD FACR Assessment and Plan Problem List: (1) Atrial fibrillation with RVR ICD Code: I48.91 Status: Acute Plan: Cont diltiazem gtt and replace K cardiology aware transfer to [facility] (2) HTN (hypertension) ICD Code: I10 Status: Acute Plan: uncontrolled, add hydralazine (3) Hyperglycemia ICD Code: R73.9 Status: Acute Plan: Hg A1C pending no hx of DM2 Code Status full code Physician Certification 2 Midnight Certification Type: Admission for Inpatient Services Order for Inpatient Services The services are ordered in accordance with Medicare regulations or non- Medicare payer requirements, as applicable. In the case of services not specified as inpatient-only, they are appropriately provided as inpatient services in accordance with the 2-midnight benchmark. Estimated LOS (days): 3 3 days is the estimated time the patient will need to remain in the hospital, assuming treatment plan goals are met and no additional complications. Post-Hospital Plan: Home Danisha Perez MD May 31, 2017 14:21
--- NOTE | 2017-05-31 17:07 | PD.CONS ---
HPI Consult Requested By Primary Care Physician Robert Peres M.D. History of Present Illness 71-year-old female with history of paroxysmal atrial fibrillation s/p 2 ablations, on chronic oral anticoagulation, presents to emergency room with complaints of A. fib with RVR. Patient reports that she began to have palpitations which awoke her from sleep around 4:30 AM this morning. She is currently on Flecainide. Reports bein complaint with medications. Patient denies any fever, chills, nausea, vomiting, diarrhea, syncope, chest pain, shortness of breath, PND or leg edema. Review of Systems Consitutional: DENIES: Fatigue, Fever, Chills, Weight gain, Weight loss Eyes: DENIES: Amaurosis Fugax, Change in vision HEENT: DENIES: Lightheadedness, Change in hearing Respiratory: DENIES: See HPI, Cough, Snoring, Shortness of breath, Wheezing, Sputum production Cardiovascular: COMPLAINS OF: See HPI, Palpitations, DENIES: Chest pain, Syncope, Tachycardia Gastrointestinal: DENIES: Nausea, Vomiting, Change in bowel habits, Reflux, Bloody stools, Melena Genitourinary: DENIES: Urinary incontinence, Difficulty voiding Integumentary: DENIES: Rash Neurologic: DENIES: Tingling or numbness, Memory problems, Poor Balance, Stroke symptoms Musculoskeletal: DENIES: Joint pain, Muscle pain, Limited range of motion, Back pain Psychiatric: DENIES: Anxiety, Depression, Sleep disturbances Hematologic: DENIES: Bruising tendencies, Bleeding tendencies Endocrine: DENIES: Weight gain, Weight loss, Thyroid disease Past Family Social History Allergies: Coded Allergies: Erythromycin (Verified Allergy, Severe, 05/31/17) Influenza Virus Vaccine (Verified Allergy, Severe, 05/31/17) Ciprofloxacin (Verified Allergy, Unknown, 05/31/17) Past Medical History afib htn DVT Past Surgical History appy gb ablation x 2 ROSEMARY Reported Medications Reported Meds & Active Scripts Active Flecainide (Flecainide Acetate) 50 Mg Tab 50 Mg PO BID Reported Voltaren (Diclofenac Sodium) 100 Gm Gel..gram. Glucosamine-Chondroitin 500-400 Mg Tab 1 Tab PO DAILY Metamucil Original Texture (Psyllium Hydrophilic Mucilloid) 48.57 % Pow 1 Scoop PO DAILY PRN 1 rounded TEASPOON in 8 oz of liquid at the first sign of irregularity. Docusate Sodium 100 Mg Cap 100 Mg PO DAILY Calcium 600 with Vitamin D (Calcium Carbonate-Cholecalciferol) 600-400 mg-Unit Tab 1 Tab PO DAILY Eliquis (Apixaban) 5 Mg Tab 5 Mg PO BID [[place]] Active Ordered Medications Current Medications Medications (Trade) Dose Ordered Sig/Jacklyn Route Start Time Stop Time Status Last Admin (NS Flush) 2 ml UNSCH PRN IVF 05/31/17 09:30 (Tylenol) 650 mg Q4H PRN PO 05/31/17 13:00 Ondansetron HCl 4 mg 4 mg Q6H PRN IVP 05/31/17 13:00 (Cardizem Inj/NS Inj) 125 ml @ 0 mls/hr TITRATE IV 05/31/17 16:00 (Apresoline Inj) 10 mg Q4H PRN IV PUSH 05/31/17 14:15 Family History noncontributory Social History Past Surgical History appy , retired, no tobacco no etoh Physical Exam Vital Signs Vital Signs Date Time Temp Pulse Resp B/P Pulse Ox O2 Delivery O2 Flow Rate FiO2 05/31/17 15:45 108 20 125/69 98 05/31/17 14:55 103 20 131/56 97 05/31/17 14:08 92 20 128/75 96 Nasal Cannula 2 05/31/17 13:39 140 20 170/84 96 Nasal Cannula 2 05/31/17 12:41 117 20 159/77 96 05/31/17 11:57 117 20 158/88 98 Nasal Cannula 2 05/31/17 11:09 117 20 179/85 98 Nasal Cannula 2 05/31/17 10:38 133 20 166/80 96 Nasal Cannula 2 05/31/17 10:16 106 20 192/94 98 Nasal Cannula 2 05/31/17 09:37 94 20 193/105 98 Nasal Cannula 2 05/31/17 09:37 98 05/31/17 09:12 98.0 137 16 154/102 97 Physical Exam GENERAL: Well-nourished, well-developed patient. SKIN: Warm and dry. HEAD: Normocephalic. EYES: No scleral icterus. No injection or drainage. NECK: Supple, trachea midline. No JVD or lymphadenopathy. CARDIOVASCULAR: Irr Irr without murmurs, gallops, or rubs. RESPIRATORY: Breath sounds equal bilaterally. No accessory muscle use. GASTROINTESTINAL: Abdomen soft, non-tender, nondistended. EXTREMITIES: No cyanosis, or edema. NEUROLOGICAL: Awake, alert, and oriented x 3. Non-focal. Laboratory Laboratory Tests Test 05/31/17 09:30 White Blood Count 5.6 Red Blood Count 4.91 Hemoglobin 15.6 Hematocrit 45.7 Mean Corpuscular Volume 93.1 Mean Corpuscular Hemoglobin 31.7 Mean Corpuscular Hemoglobin 34.0 Concent Red Cell Distribution Width 11.7 Platelet Count 232 Mean Platelet Volume 8.9 Neutrophils (%) (Auto) 69.9 Lymphocytes (%) (Auto) 19.8 Monocytes (%) (Auto) 6.6 Eosinophils (%) (Auto) 0.1 Basophils (%) (Auto) 3.6 Neutrophils # (Auto) 3.9 Lymphocytes # (Auto) 1.1 Monocytes # (Auto) 0.4 Eosinophils # (Auto) 0.0 Basophils # (Auto) 0.2 CBC Comment DIFF FINAL Differential Comment Prothrombin Time 11.1 Prothromb Time International 1.0 Ratio Activated Partial 30.3 Thromboplast Time Sodium Level 140 Potassium Level 3.4 Chloride Level 107 Carbon Dioxide Level 24.4 Anion Gap 9 Blood Urea Nitrogen 15 Creatinine 0.91 Estimat Glomerular Filtration 61 Rate Random Glucose 136 Calcium Level 9.3 Magnesium Level 2.0 Total Bilirubin 0.4 Aspartate Amino Transf 25 (AST/SGOT) Alanine Aminotransferase 29 (ALT/SGPT) Alkaline Phosphatase 79 Total Creatine Kinase 95 Troponin I LESS THAN 0.02 B-Type Natriuretic Peptide 87 Total Protein 8.1 Albumin 4.1 Result Diagram: 05/31/1792905/31/17929 Imaging Last Impressions Chest X-Ray 05/31/17926 Signed Impressions: Service Date/Time: Wednesday, May 31, 2017 09:32 - CONCLUSION: No acute disease. Miguelito Estrella MD FACR Assessment and Plan Problem List: (1) Atrial fibrillation with RVR Assessment and Plan: Cont Eliquis Cont Flecainide 50mg PO BID Cont Cardizem drip and wean as tolerated by HR EKG in am (2) HTN (hypertension) (3) S/P ablation of atrial fibrillation Ramon Sagastume MD May 31, 2017 17:07
[2017-05-31 17:14] LABS: HEMOGLOBIN A1a 0.9 %; HEMOGLOBIN A1b 1.5 %; HEMOGLOBIN Ao 86.2 %; HEMOGLOBIN LA1C 2.1 %; HEMOGLOBIN P3 3.7 %
[2017-05-31] MEDS: APIXABAN 5 MG TABLET PO SCH (20:43)
[2017-05-31] MEDS: FLECAINIDE ACETATE 100 MG TAB PO SCH (20:52)
[2017-05-31] MEDS ORDERED: CHLORHEXIDINE GLUCONATE 2 % 1 PACK (2 CLOTHS)(extra cloths) TOPICAL PRN (23:15)
[2017-06-01] VITALS (13 sets, daily range): BP systolic 107–151; BP diastolic 55–103; PULSE 56–114; RESP 16–24; TEMP 97.6–98.5; O2SAT 94–97
[2017-06-01] MEDS: CHLORHEXIDINE GLUCONATE 2 % 1 PACK (2 CLOTHS)(taper/protocol) TOPICAL SCH (04:00)
[2017-06-01] MEDS: APIXABAN 5 MG TABLET PO SCH ×2 (08:01→20:53)
[2017-06-01] MEDS: FLECAINIDE ACETATE 100 MG TAB PO SCH ×2 (08:01→20:54)
[2017-06-01] MEDS: ACETAMINOPHEN 325 MG TAB PO PRN (14:59)
--- NOTE | 2017-06-01 15:47 | HHI.PR ---
Subjective Remarks Follow-up for atrial fibrillation with RVR Patient denies any chest pain, palpitation, lightheadedness or dizziness at the moment. Earlier she did try to ambulate in which she went to RVR again. Patient just felt lightheadedness at that time. Due to this Cardizem drip was decreased back to 5. At the moment her rate is controlled. Patient has no complaints. d/w patient's nurse at the bedside. Objective Vitals Vital Signs Date Time Temp Pulse Resp B/P Pulse Ox O2 Delivery O2 Flow Rate FiO2 06/01/17 14:00 77 06/01/17 12:00 84 06/01/17 12:00 98.4 84 16 121/55 97 06/01/17 10:00 109 06/01/17 08:00 92 06/01/17 08:00 98.5 92 22 151/80 96 06/01/17 06:00 56 06/01/17 04:00 79 06/01/17 04:00 98.1 79 24 108/59 97 06/01/17 02:00 67 06/01/17 00:00 98.4 75 20 107/58 94 06/01/17 00:00 75 05/31/17 22:00 74 05/31/17 20:00 57 05/31/17 20:00 98.3 55 20 111/55 96 05/31/17 18:00 110 05/31/17 17:21 109 05/31/17 17:00 97.3 110 17 139/71 100 05/31/17 15:45 108 20 125/69 98 I/O 05/31/17 05/31/17 05/31/17 06/01/17 06/01/17 06/01/17 07:00 15:00 23:00 07:00 15:00 23:00 Intake Total 531 ml 270 ml 780 ml Output Total 200 ml 500 ml Balance 331 ml 270 ml 280 ml Intake Oral 480 ml 240 ml 720 ml IV Total 51 ml 30 ml 60 ml Output Urine Total 200 ml 500 ml # Voids 1 3 # Bowel Movements 2 Result Diagram: 05/31/1792905/31/17929 Imaging Last Impressions Chest X-Ray 05/31/17926 Signed Impressions: Service Date/Time: Wednesday, May 31, 2017 09:32 - CONCLUSION: No acute disease. Miguelito Estrella MD FACR Objective Remarks GENERAL: in nad SKIN: Warm and dry. HEAD: Normocephalic. EYES: No scleral icterus. No injection or drainage. NECK: Supple, trachea midline. No JVD or lymphadenopathy. CARDIOVASCULAR: Irregular rate and irregular rhythm without murmurs, gallops, or rubs. RESPIRATORY: Breath sounds equal bilaterally. No accessory muscle use. GASTROINTESTINAL: Abdomen soft, non-tender, nondistended. MUSCULOSKELETAL: No cyanosis, or edema. BACK: Nontender without obvious deformity. No CVA tenderness. Medications and IVs Current Medications Aspirin (Aspirin Chew) 162 mg ONCE ONCE PO Last administered on 05/31/17 09:32 ; Start 05/31/17 at 09:30; Stop 05/31/17 at 09:31; Status DC Sodium Chloride 2 ml 2 ml UNSCH PRN IVF FLUSH AFTER USING IV ACCESS; Start 05/31 at 09:30 Sodium Chloride (NS 500 ml Inj) 500 ml @ 500 mls/hr ONCE ONCE IV Last administered on 05/31/17 09:32; Start 05/31/17 at 09:30; Stop 05/31/17 at 10:29; Status DC Diltiazem HCl (Cardizem Inj) 20 mg BOLUS ONCE IV PUSH Last administered on 05/31 09:33; Start 05/31/17 at 09:30; Stop 05/31/17 at 09:31; Status DC Diltiazem HCl (Cardizem) 30 mg ONCE ONCE PO Last administered on 05/31/17 10: 15; Start 05/31/17 at 10:00; Stop 05/31/17 at 10:01; Status DC Potassium Chloride 30 meq 30 meq ONCE ONCE PO Last administered on 05/31/17 10 :19; Start 05/31/17 at 10:30; Stop 05/31/17 at 10:31; Status DC Diltiazem HCl/ Sodium Chloride (Cardizem Inj/NS Inj) 125 ml @ 0 mls/hr TITRATE IV Last administered on 05/31/17 11:03; Start 05/31/17 at 10:45; Stop 05/31/17 at 14:21; Status DC Acetaminophen (Tylenol) 650 mg Q4H PRN PO TEMP > 100.4 Last administered on 06/01 14:59; Start 05/31/17 at 13:00 Ondansetron HCl 4 mg 4 mg Q6H PRN IVP NAUSEA OR VOMITING; Start 05/31/17 at 13: 00 Diltiazem HCl/ Sodium Chloride (Cardizem Inj/NS Inj) 125 ml @ 0 mls/hr TITRATE IV Last administered on 06/01/17 05:06; Start 05/31/17 at 16:00 Hydralazine HCl (Apresoline Inj) 10 mg Q4H PRN IV PUSH SBP>160, DBP>90; Start 05/31/17 at 14:15 Flecainide Acetate (Tambocor) 50 mg Q12HR PO Last administered on 06/01/17 08: 01; Start 05/31/17 at 21:00 Apixaban (Eliquis) 5 mg BID PO Last administered on 06/01/17 08:01; Start at 21:00 Miscellaneous Information Patient in critical care unit? Ass... 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 Management per residential designer. -Patient was resumed on her dose of flecainide. She is on the Cardizem drip. Continue with Cardizem drip per residential designer. -Patient currently on Eliquis. HTN (hypertension) -Hydralazine was added yesterday. Continue current regimen. Hyperglycemia -Pending hemoglobin A1c. DVT prophylaxis -Patient's on Eliquis. Discharge Planning Patient on Cardizem drip. Transfer to [facility]. Izzy Berger MD Jun 01, 2017 15:47
--- NOTE | 2017-06-01 17:20 | PD.CARD.PN ---
Subjective Subjective Remarks no overnight events hr better control Objective Medications Current Medications Medications (Trade) Dose Ordered Sig/Jacklyn Route Start Time Stop Time Status Last Admin (NS Flush) 2 ml UNSCH PRN IVF 05/31/17 09:30 (Tylenol) 650 mg Q4H PRN PO 05/31/17 13:00 06/01/17 14:59 Ondansetron HCl 4 mg 4 mg Q6H PRN IVP 05/31/17 13:00 (Cardizem Inj/NS Inj) 125 ml @ 0 mls/hr TITRATE IV 05/31/17 16:00 06/01/17 05:06 (Apresoline Inj) 10 mg Q4H PRN IV PUSH 05/31/17 14:15 (Tambocor) 50 mg Q12HR PO 05/31/17 21:00 06/01/17 08:01 (Eliquis) 5 mg BID PO 05/31/17 21:00 06/01/17 08:01 Miscellaneous Information Patient in critical care unit? Ass... Q361D .XX 05/31/17 23:15 (Chlorhexidine 2% Cloth) 3 pack DAILY@04 TOPICAL 06/01/17 04:00 06/05/17 04:01 (Chlorhexidine 2% Cloth) 3 pack UNSCH PRN TOPICAL 05/31/17 23:15 06/05/17 23:12 Vital Signs / I&O Vital Signs Date Time Temp Pulse Resp B/P Pulse Ox O2 Delivery O2 Flow Rate FiO2 06/01/17 14:00 77 06/01/17 12:00 84 06/01/17 12:00 98.4 84 16 121/55 97 06/01/17 10:00 109 06/01/17 08:00 92 06/01/17 08:00 98.5 92 22 151/80 96 06/01/17 06:00 56 06/01/17 04:00 79 06/01/17 04:00 98.1 79 24 108/59 97 06/01/17 02:00 67 06/01/17 00:00 98.4 75 20 107/58 94 06/01/17 00:00 75 05/31/17 22:00 74 05/31/17 20:00 57 05/31/17 20:00 98.3 55 20 111/55 96 05/31/17 18:00 110 05/31/17 17:21 109 I/O 05/31/17 05/31/17 05/31/17 06/01/17 06/01/17 06/01/17 07:00 15:00 23:00 07:00 15:00 23:00 Intake Total 531 ml 270 ml 780 ml Output Total 200 ml 500 ml Balance 331 ml 270 ml 280 ml Intake Oral 480 ml 240 ml 720 ml IV Total 51 ml 30 ml 60 ml Output Urine Total 200 ml 500 ml # Voids 1 3 # Bowel Movements 2 Physical Exam GENERAL: Well-nourished, well-developed patient. SKIN: Warm and dry. HEAD: Normocephalic. EYES: No scleral icterus. No injection or drainage. NECK: Supple, trachea midline. No JVD or lymphadenopathy. CARDIOVASCULAR: Irr Irr without murmurs, gallops, or rubs. RESPIRATORY: Breath sounds equal bilaterally. No accessory muscle use. GASTROINTESTINAL: Abdomen soft, non-tender, nondistended. EXTREMITIES: No cyanosis, or edema. NEUROLOGICAL: Awake, alert, and oriented x 3. Non-focal. Laboratory Laboratory Tests Test 06/01/17 04:33 Magnesium Level 2.1 MG/DL Imaging Last Impressions Chest X-Ray 05/31/17 0999 Signed Impressions: Service Date/Time: Wednesday, May 31, 2017 09:32 - CONCLUSION: No acute disease. Miguelito Estrella MD FACR Assessment and Plan Problem List: (1) Atrial fibrillation with RVR Assessment and Plan: wean Cardizem drip start Lopressor 12.5mg PO bid cont Flecainide cont Eliquis (2) HTN (hypertension) (3) S/P ablation of atrial fibrillation Ramon Sagastume MD Jun 01, 2017 17:20
[2017-06-01] MEDS ORDERED: PILL SPLITTER OTHER PRN (17:30)
--- NOTE | 2017-06-01 19:33 | EKG ---
Date Performed: 05/31/2017 Time Performed: 09:22:32 PTAGE: 71 years EKG: Supraventricular tachycardia of uncertain mechanism, but its most consistent with atrial fl utter Atrial fibrillation and other supraventricular rhythm disturbances are not excluded LEFT ANTERI OR FASCICULAR BLOCK SEPTAL MYOCARDIAL INFARCTION Inferolateral ST segment changes Compared to previou s tracing, the patient has developed a Supraventricular tachycardia. There's been an increase in the inferolateral ST segment changes. Clinical correlation is recommended ABNORMAL ECG PREVIOUS TRACING : 05/10/2017 05.22 DOCTOR: Fay Ruiz Interpretating Date/Time 06/01/2017 19:32:45
--- NOTE | 2017-06-01 19:35 | EKG ---
Date Performed: 05/31/2017 Time Performed: 10:31:07 PTAGE: 71 years EKG: ATRIAL FLUTTER/TACHYCARDIA WITH RAPID VENTRICULAR RESPONSE MARKED LEFT AXIS DEVIATION Cr red to previous tracing, there's been a slowing of the ventricular response to the atrial flutter and improvement in the inferolateral ST segment depression. Clinical correlation remains important ABNOR MAL ECG PREVIOUS TRACING : 05/31/2017 09.22 DOCTOR: Fay Ruiz Interpretating Date/Time 06/01/2017 19:33:55
[2017-06-01] MEDS: METOPROLOL TARTRATE 25 MG TAB PO SCH (20:53)
[2017-06-02] VITALS (23 sets, daily range): BP systolic 119–142; BP diastolic 63–87; PULSE 62–110; RESP 16–20; TEMP 96.8–97.9; O2SAT 95–98
[2017-06-02] MEDS: CHLORHEXIDINE GLUCONATE 2 % 1 PACK (2 CLOTHS)(taper/protocol) TOPICAL SCH (04:00)
[2017-06-02] MEDS: FLECAINIDE ACETATE 100 MG TAB PO SCH ×2 (08:26→20:32)
[2017-06-02] MEDS: METOPROLOL TARTRATE 25 MG TAB PO SCH ×2 (08:26→20:32)
[2017-06-02] MEDS: APIXABAN 5 MG TABLET PO SCH ×2 (08:26→20:33)
--- NOTE | 2017-06-02 09:03 | PD.CARD.PN ---
Subjective Subjective Remarks no complaints no overnight events off cardizem drip Objective Medications Current Medications Medications (Trade) Dose Ordered Sig/Jacklyn Route Start Time Stop Time Status Last Admin (NS Flush) 2 ml UNSCH PRN IVF 05/31/17 09:30 (Tylenol) 650 mg Q4H PRN PO 05/31/17 13:00 06/01/17 14:59 (Zofran Inj) 4 mg Q6H PRN IVP 05/31/17 13:00 (Apresoline Inj) 10 mg Q4H PRN IV PUSH 05/31/17 14:15 (Tambocor) 50 mg Q12HR PO 05/31/17 21:00 06/02/17 08:26 (Eliquis) 5 mg BID PO 05/31/17 21:00 06/02/17 08:26 Miscellaneous Information Patient in critical care unit? Ass... Q361D .XX 05/31/17 23:15 (Chlorhexidine 2% Cloth) 3 pack DAILY@04 TOPICAL 06/01/17 04:00 06/05/17 04:01 (Chlorhexidine 2% Cloth) 3 pack UNSCH PRN TOPICAL 05/31/17 23:15 06/05/17 23:12 (Lopressor) 12.5 mg Q12HR PO 06/01/17 21:00 06/02/17 08:26 (Pill Splitter) 1 ea UNSCH PRN OTHER 06/01/17 17:30 06/01/17 20:53 Vital Signs / I&O Vital Signs Date Time Temp Pulse Resp B/P Pulse Ox O2 Delivery O2 Flow Rate FiO2 06/02/17 07:37 97.7 86 16 137/78 95 06/02/17 07:37 86 06/02/17 06:00 72 06/02/17 04:00 97.8 69 18 119/69 97 06/02/17 04:00 74 06/02/17 03:00 62 06/02/17 02:00 74 06/02/17 01:00 72 06/02/17 00:00 70 06/02/17 00:00 97.7 70 20 142/65 95 06/01/17 22:00 67 06/01/17 22:00 90 06/01/17 21:30 97.7 90 18 142/103 97 06/01/17 20:00 114 06/01/17 20:00 97.7 114 20 118/61 97 06/01/17 18:00 113 06/01/17 16:00 76 06/01/17 16:00 97.6 76 18 119/57 95 06/01/17 14:00 77 06/01/17 12:00 84 06/01/17 12:00 98.4 84 16 121/55 97 06/01/17 10:00 109 I/O 06/01/17 06/01/17 06/01/17 06/02/17 06/02/17 06/02/17 07:00 15:00 23:00 07:00 15:00 23:00 Intake Total 270 ml 780 ml 506 ml 392 ml Output Total 500 ml 200 ml Balance 270 ml 280 ml 306 ml 392 ml Intake Oral 240 ml 720 ml 480 ml 380 ml IV Total 30 ml 60 ml 26 ml 12 ml Output Urine Total 500 ml 200 ml # Voids 3 1 3 # Bowel Movements 2 Physical Exam GENERAL: Well-nourished, well-developed patient. SKIN: Warm and dry. HEAD: Normocephalic. EYES: No scleral icterus. No injection or drainage. NECK: Supple, trachea midline. No JVD or lymphadenopathy. CARDIOVASCULAR: Irr Irr without murmurs, gallops, or rubs. RESPIRATORY: Breath sounds equal bilaterally. No accessory muscle use. GASTROINTESTINAL: Abdomen soft, non-tender, nondistended. EXTREMITIES: No cyanosis, or edema. NEUROLOGICAL: Awake, alert, and oriented x 3. Non-focal. Assessment and Plan Problem List: (1) Atrial fibrillation with RVR Assessment and Plan: Increase Lopressor to 25mg PO BID Cont Flecainide Cont Eliquis (2) HTN (hypertension) (3) S/P ablation of atrial fibrillation Ramon Sagastume MD Jun 02, 2017 09:03
--- NOTE | 2017-06-02 09:38 | HHI.PR ---
Subjective Remarks Follow-up for age of fibrillation with RVR Patient felt some fluttering while ambulating this morning. Otherwise she is asymptomatic. Patient also asking if I can restart glucosamine/chondroitin for her bilateral knee pain. She stated that works for her. Objective Vitals Vital Signs Date Time Temp Pulse Resp B/P Pulse Ox O2 Delivery O2 Flow Rate FiO2 06/02/17 07:37 97.7 86 16 137/78 95 06/02/17 07:37 86 06/02/17 06:00 72 06/02/17 04:00 97.8 69 18 119/69 97 06/02/17 04:00 74 06/02/17 03:00 62 06/02/17 02:00 74 06/02/17 01:00 72 06/02/17 00:00 70 06/02/17 00:00 97.7 70 20 142/65 95 06/01/17 22:00 67 06/01/17 22:00 90 06/01/17 21:30 97.7 90 18 142/103 97 06/01/17 20:00 114 06/01/17 20:00 97.7 114 20 118/61 97 06/01/17 18:00 113 06/01/17 16:00 76 06/01/17 16:00 97.6 76 18 119/57 95 06/01/17 14:00 77 06/01/17 12:00 84 06/01/17 12:00 98.4 84 16 121/55 97 06/01/17 10:00 109 I/O 06/01/17 06/01/17 06/01/17 06/02/17 06/02/17 06/02/17 07:00 15:00 23:00 07:00 15:00 23:00 Intake Total 270 ml 780 ml 506 ml 392 ml Output Total 500 ml 200 ml Balance 270 ml 280 ml 306 ml 392 ml Intake Oral 240 ml 720 ml 480 ml 380 ml IV Total 30 ml 60 ml 26 ml 12 ml Output Urine Total 500 ml 200 ml # Voids 3 1 3 # Bowel Movements 2 Result Diagram: 05/31/1730 05/31/17929 Imaging Last Impressions Chest X-Ray 05/31/17926 Signed Impressions: Service Date/Time: Wednesday, May 31, 2017 09:32 - CONCLUSION: No acute disease. Miguelito Estrella MD FACR Objective Remarks GENERAL: in nad SKIN: Warm and dry. HEAD: Normocephalic. EYES: No scleral icterus. No injection or drainage. NECK: Supple, trachea midline. No JVD or lymphadenopathy. CARDIOVASCULAR: Irregular rate and irregular rhythm without murmurs, gallops, or rubs. RESPIRATORY: Breath sounds equal bilaterally. No accessory muscle use. GASTROINTESTINAL: Abdomen soft, non-tender, nondistended. MUSCULOSKELETAL: No cyanosis, or edema. BACK: Nontender without obvious deformity. No CVA tenderness. Medications and IVs Current Medications Aspirin (Aspirin Chew) 162 mg ONCE ONCE PO Last administered on 05/31/17 09:32 ; Start 05/31/17 at 09:30; Stop 05/31/17 at 09:31; Status DC Sodium Chloride 2 ml 2 ml UNSCH PRN IVF FLUSH AFTER USING IV ACCESS; Start 05/31 at 09:30 Sodium Chloride (NS 500 ml Inj) 500 ml @ 500 mls/hr ONCE ONCE IV Last administered on 05/31/17 09:32; Start 05/31/17 at 09:30; Stop 05/31/17 at 10:29; Status DC Diltiazem HCl (Cardizem Inj) 20 mg BOLUS ONCE IV PUSH Last administered on 05/31 09:33; Start 05/31/17 at 09:30; Stop 05/31/17 at 09:31; Status DC Diltiazem HCl (Cardizem) 30 mg ONCE ONCE PO Last administered on 05/31/17 10: 15; Start 05/31/17 at 10:00; Stop 05/31/17 at 10:01; Status DC Potassium Chloride 30 meq 30 meq ONCE ONCE PO Last administered on 05/31/17 10 :19; Start 05/31/17 at 10:30; Stop 05/31/17 at 10:31; Status DC Diltiazem HCl/ Sodium Chloride (Cardizem Inj/NS Inj) 125 ml @ 0 mls/hr TITRATE IV Last administered on 05/31/17 11:03; Start 05/31/17 at 10:45; Stop 05/31/17 at 14:21; Status DC Acetaminophen (Tylenol) 650 mg Q4H PRN PO TEMP > 100.4 Last administered on 06/01 14:59; Start 05/31/17 at 13:00 Ondansetron HCl 4 mg 4 mg Q6H PRN IVP NAUSEA OR VOMITING; Start 05/31/17 at 13: 00 Diltiazem HCl/ Sodium Chloride (Cardizem Inj/NS Inj) 125 ml @ 0 mls/hr TITRATE IV Last administered on 06/01/17 05:06; Start 05/31/17 at 16:00; Stop 06/02/17 at 09:01; Status DC Hydralazine HCl (Apresoline Inj) 10 mg Q4H PRN IV PUSH SBP>160, DBP>90; Start 05/31/17 at 14:15 Flecainide Acetate (Tambocor) 50 mg Q12HR PO Last administered on 06/02/17 08: 26; Start 05/31/17 at 21:00 Apixaban (Eliquis) 5 mg BID PO Last administered on 06/02/17 08:26; Start at 21:00 Miscellaneous Information Patient in critical care unit? Ass... Q361D .XX ; Start 05/31/17 at 23:15 Chlorhexidine Gluconate (Chlorhexidine 2% Cloth) 3 pack DAILY@04 TOPICAL ; Start 06/01/17 at 04:00; Stop 06/05/17 at 04:01 Chlorhexidine Gluconate (Chlorhexidine 2% Cloth) 3 pack UNSCH PRN TOPICAL HYGIENIC CARE; Start 05/31/17 at 23:15; Stop 06/05/17 at 23:12 Metoprolol Tartrate (Lopressor) 12.5 mg Q12HR PO Last administered on 06/02/17 08:26; Start 06/01/17 at 21:00; Stop 06/02/17 at 09:01; Status DC Miscellaneous (Pill Splitter) 1 ea UNSCH PRN OTHER SEE LABEL COMMENTS Last administered on 06/01/17 20:53; Start 06/01/17 at 17:30 Metoprolol Tartrate (Lopressor) 25 mg Q12HR PO ; Start 06/02/17 at 21:00 Metoprolol Tartrate (Lopressor) 12.5 mg ONCE ONCE PO ; Start 06/02/17 at 10:00; Stop 06/02/17 at 10:01 A/P Problem List: (1) Atrial fibrillation with RVR ICD Code: I48.91 Status: Acute (2) HTN (hypertension) ICD Code: I10 Status: Acute (3) Hyperglycemia ICD Code: R73.9 Status: Acute Assessment and Plan Atrial fibrillation with RVR -Emergency Communications Officer consulted. Management per business account leader. -on flecainide. She is off the Cardizem drip. Lopressor was increased to 25 mg by mouth twice a day today. -Patient currently on Eliquis. HTN (hypertension) -on Hydralazine. Hyperglycemia -hemoglobin A1c 5.2. DVT prophylaxis -Patient's on Eliquis. Discharge Planning Patient continues to be symptomatic and requires continual monitoring. Izzy Berger MD Jun 02, 2017 09:38
[2017-06-02] MEDS ORDERED: METOPROLOL TARTRATE 25 MG TAB PO ONE (10:00)
[2017-06-02] MEDS ORDERED: GLUCOSAMINE PO SCH (11:30)
[2017-06-02] MEDS ORDERED: CHONDROITIN PO SCH (11:30)
[2017-06-03] VITALS (26 sets, daily range): BP systolic 101–153; BP diastolic 60–87; PULSE 58–107; RESP 16; TEMP 97.5–97.9; O2SAT 98–99
[2017-06-03] MEDS: CHLORHEXIDINE GLUCONATE 2 % 1 PACK (2 CLOTHS)(taper/protocol) TOPICAL SCH (00:17)
[2017-06-03] MEDS: METOPROLOL TARTRATE 25 MG TAB PO SCH ×2 (08:27→20:19)
[2017-06-03] MEDS: APIXABAN 5 MG TABLET PO SCH ×2 (08:27→20:19)
--- NOTE | 2017-06-03 08:53 | HHI.PR ---
Subjective Remarks f/u for atrial fibrillation with RVR patient stated she was walking to the restroom today and she felt her heart fluttering. She stated that when she is resting and not doing anything she has no symptoms but when she exerts herself she starts feeling fluttering. She also asked why she could not walk down the hallways. Her nurse is at the bedside. Objective Vitals Vital Signs Date Time Temp Pulse Resp B/P Pulse Ox O2 Delivery O2 Flow Rate FiO2 06/03/17 05:00 66 06/03/17 04:00 97.6 74 16 119/66 98 06/03/17 04:00 66 06/03/17 03:00 70 06/03/17 02:00 72 06/03/17 01:00 66 06/03/17 00:00 70 06/03/17 00:00 97.7 95 16 114/75 99 06/02/17 23:00 100 06/02/17 22:00 74 06/02/17 21:00 88 06/02/17 20:00 97.9 88 16 137/70 96 06/02/17 20:00 76 06/02/17 19:00 92 06/02/17 18:16 91 06/02/17 17:23 83 06/02/17 16:29 81 06/02/17 15:24 97.8 84 16 128/63 97 06/02/17 15:24 84 06/02/17 14:09 88 06/02/17 13:05 109 06/02/17 12:20 85 06/02/17 11:16 90 06/02/17 11:16 96.8 103 18 139/87 98 06/02/17 10:17 84 06/02/17 09:55 109 I/O 06/02/17 06/02/17 06/02/17 06/03/17 06/03/17 06/03/17 07:00 15:00 23:00 07:00 15:00 23:00 Intake Total 392 ml 960 ml 720 ml Balance 392 ml 960 ml 720 ml Intake Oral 380 ml 960 ml 720 ml IV Total 12 ml 0 ml # Voids 3 4 3 # Bowel Movements 0 0 Result Diagram: 05/31/1792905/31/17929 Objective Remarks GENERAL: in nad SKIN: Warm and dry. HEAD: Normocephalic. EYES: No scleral icterus. No injection or drainage. NECK: Supple, trachea midline. No JVD or lymphadenopathy. CARDIOVASCULAR: Irregular rate and irregular rhythm without murmurs, gallops, or rubs. RESPIRATORY: Breath sounds equal bilaterally. No accessory muscle use. GASTROINTESTINAL: Abdomen soft, non-tender, nondistended. MUSCULOSKELETAL: No cyanosis, or edema. BACK: Nontender without obvious deformity. No CVA tenderness. Medications and IVs Current Medications Aspirin (Aspirin Chew) 162 mg ONCE ONCE PO Last administered on 05/31/17 09:32 ; Start 05/31/17 at 09:30; Stop 05/31/17 at 09:31; Status DC Sodium Chloride 2 ml 2 ml UNSCH PRN IVF FLUSH AFTER USING IV ACCESS; Start 05/31 at 09:30 Sodium Chloride (NS 500 ml Inj) 500 ml @ 500 mls/hr ONCE ONCE IV Last administered on 05/31/17 09:32; Start 05/31/17 at 09:30; Stop 05/31/17 at 10:29; Status DC Diltiazem HCl (Cardizem Inj) 20 mg BOLUS ONCE IV PUSH Last administered on 05/31 09:33; Start 05/31/17 at 09:30; Stop 05/31/17 at 09:31; Status DC Diltiazem HCl (Cardizem) 30 mg ONCE ONCE PO Last administered on 05/31/17 10: 15; Start 05/31/17 at 10:00; Stop 05/31/17 at 10:01; Status DC Potassium Chloride 30 meq 30 meq ONCE ONCE PO Last administered on 05/31/17 10 :19; Start 05/31/17 at 10:30; Stop 05/31/17 at 10:31; Status DC Diltiazem HCl/ Sodium Chloride (Cardizem Inj/NS Inj) 125 ml @ 0 mls/hr TITRATE IV Last administered on 05/31/17 11:03; Start 05/31/17 at 10:45; Stop 05/31/17 at 14:21; Status DC Acetaminophen (Tylenol) 650 mg Q4H PRN PO TEMP > 100.4 Last administered on 06/01 14:59; Start 05/31/17 at 13:00 Ondansetron HCl 4 mg 4 mg Q6H PRN IVP NAUSEA OR VOMITING; Start 05/31/17 at 13: 00 Diltiazem HCl/ Sodium Chloride (Cardizem Inj/NS Inj) 125 ml @ 0 mls/hr TITRATE IV Last administered on 06/01/17 05:06; Start 05/31/17 at 16:00; Stop 06/02/17 at 09:01; Status DC Hydralazine HCl (Apresoline Inj) 10 mg Q4H PRN IV PUSH SBP>160, DBP>90; Start 05/31/17 at 14:15 Flecainide Acetate (Tambocor) 50 mg Q12HR PO Last administered on 06/02/17 20: 32; Start 05/31/17 at 21:00 Apixaban (Eliquis) 5 mg BID PO Last administered on 06/03/17 08:27; Start at 21:00 Miscellaneous Information Patient in critical care unit? Ass... Q361D .XX ; Start 05/31/17 at 23:15 Chlorhexidine Gluconate (Chlorhexidine 2% Cloth) 3 pack DAILY@04 TOPICAL ; Start 06/01/17 at 04:00; Stop 06/05/17 at 04:01 Chlorhexidine Gluconate (Chlorhexidine 2% Cloth) 3 pack UNSCH PRN TOPICAL HYGIENIC CARE; Start 05/31/17 at 23:15; Stop 06/05/17 at 23:12 Metoprolol Tartrate (Lopressor) 12.5 mg Q12HR PO Last administered on 06/02/17 08:26; Start 06/01/17 at 21:00; Stop 06/02/17 at 09:01; Status DC Miscellaneous (Pill Splitter) 1 ea UNSCH PRN OTHER SEE LABEL COMMENTS Last administered on 06/01/17 20:53; Start 06/01/17 at 17:30 Metoprolol Tartrate (Lopressor) 25 mg Q12HR PO Last administered on 06/03/17 08 :27; Start 06/02/17 at 21:00 Metoprolol Tartrate (Lopressor) 12.5 mg ONCE ONCE PO Last administered on 10:31; Start 06/02/17 at 10:00; Stop 06/02/17 at 10:01; Status DC Patient Own Medication glucosamine/ chondrotin dick... DAILY PO ; Start 06/02/17 at 11:30; Status Hold A/P Problem List: (1) Atrial fibrillation with RVR ICD Code: I48.91 Status: Acute (2) HTN (hypertension) ICD Code: I10 Status: Acute (3) Hyperglycemia ICD Code: R73.9 Status: Acute Assessment and Plan Atrial fibrillation with RVR -Women'S Studies Lecturer consulted. -on flecainide. She is off the Cardizem drip. On Lopressor 25 mg by mouth twice a day. -Patient currently on Eliquis. -She continues to be symptomatic with exertion. Management per frame stripper. HTN (hypertension) -on Hydralazine. Hyperglycemia -hemoglobin A1c 5.2. DVT prophylaxis -Patient's on Eliquis. Discharge Planning Patient continues to be symptomatic with ambulation pending recommendation from frame stripper. Dealt with patient's nurse stated that patient can ambulate in the hallway. Izzy Berger MD Jun 03, 2017 08:52
[2017-06-03] MEDS: FLECAINIDE ACETATE 100 MG TAB PO SCH ×2 (09:00→20:19)
--- NOTE | 2017-06-03 09:06 | PD.CARD.PN ---
Subjective Subjective Remarks Pt doing well; good rates, she does feel flutters which seem to correlate only to rate controlled afib. Objective Medications Administered Medications Medications (Trade) Dose Ordered Sig/Jacklyn Route PRN Reason Start Time Stop Time Status Last Admin Dose Admin Acetaminophen (Tylenol) 650 mg Q4H PRN PO TEMP > 100.4 05/31/17 13:00 06/01/17 14:59 Flecainide Acetate (Tambocor) 50 mg Q12HR PO 05/31/17 21:00 06/02/17 20:32 Apixaban (Eliquis) 5 mg BID PO 05/31/17 21:00 06/03/17 08:27 Miscellaneous (Pill Splitter) 1 ea UNSCH PRN OTHER SEE LABEL COMMENTS 06/01/17 17:30 06/01/17 20:53 Metoprolol Tartrate (Lopressor) 25 mg Q12HR PO 06/02/17 21:00 06/03/17 08:27 Vital Signs / I&O Vital Signs Date Time Temp Pulse Resp B/P Pulse Ox O2 Delivery O2 Flow Rate FiO2 06/03/17 05:00 66 06/03/17 04:00 97.6 74 16 119/66 98 06/03/17 04:00 66 06/03/17 03:00 70 06/03/17 02:00 72 06/03/17 01:00 66 06/03/17 00:00 70 06/03/17 00:00 97.7 95 16 114/75 99 06/02/17 23:00 100 06/02/17 22:00 74 06/02/17 21:00 88 06/02/17 20:00 97.9 88 16 137/70 96 06/02/17 20:00 76 06/02/17 19:00 92 06/02/17 18:16 91 06/02/17 17:23 83 06/02/17 16:29 81 06/02/17 15:24 97.8 84 16 128/63 97 06/02/17 15:24 84 06/02/17 14:09 88 06/02/17 13:05 109 06/02/17 12:20 85 06/02/17 11:16 90 06/02/17 11:16 96.8 103 18 139/87 98 7/7/17 10:17 84 06/02/17 09:55 109 I/O 06/02/17 06/02/17 06/02/17 06/03/17 06/03/17 06/03/17 07:00 15:00 23:00 07:00 15:00 23:00 Intake Total 392 ml 960 ml 720 ml Balance 392 ml 960 ml 720 ml Intake Oral 380 ml 960 ml 720 ml IV Total 12 ml 0 ml # Voids 3 4 3 # Bowel Movements 0 0 Physical Exam GENERAL: This is a well-nourished, well-developed patient, in no apparent distress. CARDIOVASCULAR: Regular rate and irregular rhythm without murmurs, gallops, or rubs. RESPIRATORY: Clear to auscultation. Breath sounds equal bilaterally. No wheezes , rales, or rhonchi. GASTROINTESTINAL: Abdomen soft, non-tender, nondistended. Normal, active bowel sounds MUSCULOSKELETAL: Extremities without clubbing, cyanosis, or edema. NEURO: Alert & Oriented x4 to person, place, time, situation. Moves all ext x4 Imaging Last Impressions Chest X-Ray 05/31/17926 Signed Impressions: Service Date/Time: Wednesday, May 31, 2017 09:32 - CONCLUSION: No acute disease. Miguelito Estrella MD FACR Assessment and Plan Problem List: (1) Atrial fibrillation with RVR Assessment and Plan: Stable on current meds; if asymptomatic and good rates while ambulating, ok to d/c home w/ f/u with Dr. Clemons next week. (2) HTN (hypertension) (3) S/P ablation of atrial fibrillation Robert Stephens MD Jun 03, 2017 09:06
[2017-06-03] MEDS: ACETAMINOPHEN 325 MG TAB PO PRN (20:20)
[2017-06-04] VITALS (12 sets, daily range): BP systolic 93–140; BP diastolic 52–78; PULSE 55–91; RESP 16; TEMP 98.2; O2SAT 98–99
[2017-06-04] MEDS: CHLORHEXIDINE GLUCONATE 2 % 1 PACK (2 CLOTHS)(taper/protocol) TOPICAL SCH (00:27)
[2017-06-04] MEDS: FLECAINIDE ACETATE 100 MG TAB PO SCH (08:27)
[2017-06-04] MEDS: METOPROLOL TARTRATE 25 MG TAB PO SCH (08:27)
[2017-06-04] MEDS: APIXABAN 5 MG TABLET PO SCH (08:27)
[2017-06-04] MEDS ORDERED: METO25TA3 PO (09:19)
--- NOTE | 2017-06-04 09:19 | HHI.DS ---
Discharge Summary Admission Date May 31, 2017 at 12:00 Admitting Diagnosis Afib with RVR (1) Atrial fibrillation with RVR ICD Code: I48.91 (2) HTN (hypertension) ICD Code: I10 (3) Hyperglycemia ICD Code: R73.9 Brief History - From Admission Patient is a 71 year old female with Afib and HTN, She has had severe heart palpitations for one day and came to the ER for evaluation of this. She had a heart rate of 143 and this improved with diltiazem gtt. She was recommended for further inpatient eval by cardiology. She has had 2 ablations in the past and her HR had improved. Her flecanide and BB were recently decreased by her cardiology. CBC/BMP: 05/31/17 0930 05/31/17 0930 PE at Discharge GENERAL: in nad SKIN: Warm and dry. HEAD: Normocephalic. EYES: No scleral icterus. No injection or drainage. NECK: Supple, trachea midline. No JVD or lymphadenopathy. CARDIOVASCULAR: Irregular rate and irregular rhythm without murmurs, gallops, or rubs. RESPIRATORY: Breath sounds equal bilaterally. No accessory muscle use. GASTROINTESTINAL: Abdomen soft, non-tender, nondistended. MUSCULOSKELETAL: No cyanosis, or edema. BACK: Nontender without obvious deformity. No CVA tenderness. Izzy Berger MD Jun 04, 2017 09:19
--- NOTE | 2017-06-04 09:19 | HHI.DCPOC ---
Discharge Care Plan Diagnosis: (1) Atrial fibrillation with RVR Goals to Promote Your Health * To prevent worsening of your condition and complications * To maintain your health at the optimal level Directions to Meet Your Goals Take your medications as prescribed Follow your dietary instruction Follow activity as directed Keep your appointments as scheduled Take your immunizations and boosters as scheduled If your symptoms worsen call your PCP, if no PCP go to Urgent Care Center or Emergency Room Smoking is Dangerous to Your Health. Avoid second hand smoke Call the 24-hour hour crisis hotline for domestic abuse at Izzy Berger MD Jun 04, 2017 09:19
== END 2017-06-04 10:27 | disposition home or self-care (01) | DRG 310 ==
LOC: PHED 09:07 → PHEDA 12:00 → HIME 16:50 → UNDODISIN 06-01 21:00 → HCIS 06-01 21:12
PROVIDERS: ADMIT Family Medicine; ATTEND Family Medicine
DX: I48.91 Unspecified atrial fibrillation (principal); I10 Essential (primary) hypertension; R73.9 Hyperglycemia, unspecified; Z79.02 Long term (current) use of antithrombotics/antiplatelets; M25.561 Pain in right knee; M25.562 Pain in left knee
CPT/HCPCS: 71010; 80053; 82550; 83036; 83735; 83880; 84484; 85025; 85610; 85730; 87641; 93005; 96361; 96374; 96375; J7040

== ENCOUNTER 2017-06-09 11:34 | Day surgery (SDC) | payer MEDICARE ==
[2017-06-09] VITALS (7 sets, daily range): BP systolic 117–155; BP diastolic 64–100; PULSE 60–83; RESP 14–18; TEMP 98–98.7; O2SAT 95–99
[~2017-06-09] VITALS: Ht 172.7 cm; Wt 82.1 kg
[~2017-06-09 11:34] MED LIST changes: +GLUC500T4 PO; +METO25TA3 PO
[2017-06-09] MEDS ORDERED: SODIUM CHLORID 0.9% 500 ML INJ 500 ML IV SCH (12:00)
[2017-06-09] MEDS ORDERED: METOPROLOL TARTRATE 25 MG TAB PO PRN (12:15)
[2017-06-09] MEDS ORDERED: CHLORHEXIDINE GLUCONATE 2 % 1 PACK (2 CLOTHS) TOPICAL PRN (12:15)
[2017-06-09] MEDS ORDERED: POVIDONE IODINE 5% (ANTISEPSIS KIT) 4 APPLICATIONS EACH NARE PRN (12:15)
[2017-06-09] MEDS ORDERED: LORazepam 1 MG TAB SL SCH (12:15)
[2017-06-09] MEDS ORDERED: LACTATED RINGER'S 1000 ML IV PRN (12:15)
[2017-06-09] MEDS ORDERED: SODIUM CHLORID 0.9% 500 ML IV PRN (12:15)
[2017-06-09] MEDS ORDERED: INSULIN HUMAN REGULAR 1,000 UNITS/10 ML VIAL SQ PRN (12:15)
[2017-06-09 12:39] LABS: AUTOMATED NEUTROPHIL # 3.6 TH/MM3 (1.8-7.7); BASOPHIL % 0.3 % (0.0-2.0); EOSINOPHIL % 0.4 % (0.0-4.0); HEMATOCRIT 37.7 % (35.0-46.0); HEMO FLAGS DIFF FINAL; LYMPH % 27.8 % (9.0-44.0); LYMPHOCYTE # 1.6 TH/MM3 (1.0-4.8); MEAN CELL VOLUME 95.3 FL (80.0-100.0); MEAN CORPUSCULAR HGB CONC 32.5 % (32.0-36.0); MONO % 9.5 % (0.0-8.0); PLATELET COUNT 191 TH/MM3 (150-450); RED BLOOD COUNT 3.96 MIL/MM3 (4.00-5.30); RED CELL DISTRIBUTION WIDTH 12.5 % (11.6-17.2); WHITE BLOOD COUNT 5.8 TH/MM3 (4.0-11.0)
[2017-06-09 12:47] LABS: APTT (PATIENT) 26.3 SEC (24.3-30.1); PROTHROMBIN TIME - PATIENT 10.7 SEC (9.8-11.6)
[2017-06-09] MEDS ORDERED: VANCOMYCIN HCL 1000 MG VIAL ONE (12:52)
[2017-06-09 12:57] LABS: BICARBONATE 26.1 MEQ/L (21.0-32.0); POTASSIUM 4.1 MEQ/L (3.5-5.1)
[2017-06-09] MEDS ORDERED: PROPOFOL 200 MG/20 ML AMP IV ONE (13:26)
[2017-06-09] MEDS ORDERED: HEPARIN-NS/PF INJ 500 ML ONE (13:47)
[2017-06-09] MEDS ORDERED: ISOPROTERENOL HCL 1 MG/5 ML AMP ONE (13:49)
[2017-06-09] MEDS ORDERED: HEPARIN-D5W INJ 250 ML ONE (13:49)
[2017-06-09] MEDS ORDERED: HEPARIN SODIUM - IV 10,000 UNITS/10 ML VIAL ONE (13:50)
[2017-06-09] MEDS ORDERED: PROTAMINE SULFATE 50 MG/5 ML VIAL ONE ×2 (13:50→16:24)
[2017-06-09] MEDS ORDERED: fentaNYL CITRATE 250 MCG/5 ML AMP ONE (13:50)
[2017-06-09] MEDS ORDERED: BACITRACIN OINT 0.9 GM PKT TOP ONE (16:15)
[2017-06-09] MEDS ORDERED: METOCLOPRAMIDE HCL 10 MG/2 ML VIAL IV PRN (16:15)
[2017-06-09] MEDS ORDERED: LORazepam 2 MG/ML VIAL IV PRN (16:15)
[2017-06-09] MEDS ORDERED: oxyCODONE/ACETAMINOPHEN 5 MG/325 MG TAB PO PRN ×2 (16:15)
[2017-06-09] MEDS ORDERED: SODIUM CHLOR 0.9% 250 ML INJ 250 ML IV PRN (16:15)
[2017-06-09] MEDS ORDERED: ATROPINE SULFATE 1 MG/ML VIAL IV PRN (16:15)
[2017-06-09] MEDS ORDERED: LIDOCAINE HCL 1% 50 ML VIAL INFIL PRN (16:15)
[2017-06-09] MEDS ORDERED: ONDANSETRON HCL 4 MG/2 ML VIAL IV PRN (16:15)
--- NOTE | 2017-06-09 17:03 | CATHPROC ---
[facility] HIS Report Study Information Study Number Admission Scheduled Start Study Start [id number] Jun 09 2017 11:34AM 06/09/2017 Jun 09 2017 1:10PM Issue Service Electrophysiology Study Admit Source Facility Department Other [facility] - Business Law Instructor Physician and Clinical Staff Initial Karina Rutherford Filler Mixer Michelle Panda,SCHOOL AGE PROGRAM ASSOCIATE TECH2 Other Ashlee Hall,RN Other [place], Aster,LOADER MALT HOUSE Other Anesthesia, LOCAL TANKER TRUCK DRIVER Recorder Wilma Mosley,BSRN Scrub Kerrie Heard,RT(R) TECH2 Procedures Performed Procedure Location (Site) Vessel Name Ablation Procedure Cardioversion ICE CATHETER INSERT RA Atruim RF Ablation LT. ATRIUM LT. ATRIUM Equipment Time Sample Preparation Supervisor Description Size Mfg Part Number Used/Scraped NEEDLE, TRANSSEPTAL NRG 98 13:36 [facility] [id number] Used C1 [employer]/ EP 13:36 KIT, TRANSDUCER / AFIB [id number] Used PACER [id number] CATHETER, TACTICATH ABLAT BUNDLE 13:36 [facility] Used 65 BUNDLE *[id number] BUNDLE [id number] CATHETER, FR7 OPTIMA SPIRAL 13:36 [facility] FR7 *[id number] Used BUNDLE BUNDLE [id number] 13:36 [facility] CATHETER, JSN, QUAD BUNDLE FR 5 *[id number]- Used BUNDLE [id number] 13:36 BUND[facility] CATHETER, JSN, QUAD BUNDLE FR 5 *[id number]- Used BUNDLE [id number] SET, COOL POINT TUBING 13:36 BUND[facility] *[id number]- Used BUNDLE BUNDLE SHEATH, FR8.5 STEERABLE SM 13:36 BUND[facility] 71CM [id number] Used 71CM BUNDLE COVER, TRANSDUCER CABLE 13:36 [employer] [id number] Used ACUNAV 13:36 CORDIS/PACER SHEATH, FR10 JAIME 11CM FR 10 [id number] Used 13:36 CORDIS/PACER SHEATH, FR9 JAIME 11CM FR 9 [id number] Used [id number] 13:36 MED[employer] PACK, CCL CUSTOM * Used *[id number] 13:36 MEDLINE PACER TINSLEY, LIMB * 8924 *[id number] Used [id number] 13:36 LeTV MEDICAL SHEATH, FR4.5 PRELUDE 11CM FR 4.5 Used [id number] 13:36 NAMIC TUBING, HIGH PRESSURE 48" 48" Used *[id number] 13:36 NAMIC TUBING, HIGH PRESSURE 48" 48" Used *[id number] 13:36 [employer] MEDICAL BLANKET,WARM AIR CCL * Used *[id number] 13:36 [facility] MEDICAL ELECTRODE KIT, JENNY X SURFACE * [id number] Used 13:36 [facility] MEDICAL SHEATH, EPS, FR6 FAST CATH FR [id number] 13:36 [facility] MEDICAL SHEATH, EPS, FR7 FAST CATH FR [address] [id number] Used 13:36 [facility] MEDICAL SHEATH, EPS, FR8 FAST CATH FR 8 [id number] Used CATHETER, ACUNAV FR10 ICE [id number] 15:05 SEAN FR 10 Used (SEAN) *[id number] [facility] PAD, ELECTROSURGICAL 13:36 * [id number] *[id number] Used SURGICAL GROUNDING (BLUE) History: Current Medications Medication Dosage/Unit Route Frequency Last Date/Time Taken ELIRESHMA DANIEL History: Allergies Allergy Reaction Ciprofloxacin Erythromycin History: Risk Factors Family History of Hypertension Dyslipidemia Previous GA Previous Heart Failure Premature CAD Yes No Yes No No Prior Valve Prior PCI Prior CABG Surgery No No No Cerebrovascular Peripheral Artery Chronic Lung On Dialysis Diabetes Disease Disease Disease No No Yes No No History: Risk Factors Selection Items Previous Cardiovascular Treatment History: Symptoms/Diagnosis Selection Items Palpitations History: Other Disease Selection Items HTN Labs Hgb (g/dl) Hct (%) RBC (MIL/MM3) WBC (l/cumm) Platelets (thousands) 11.60-17.00 35.00-51.00 4.00-5.90 4.00-11.00 150.00-450.00 12.2 37.7 3.9 5.8 191 Glucose (mg/dl) BUN (mg/dl) Creatinine (mg/dl) BUN:Creatinine (1:x) 74.00-106.00 7.00-18.00 0.50-1.30 10.00-20.00 93 22 0.9 24.4 Na (meq/l) K (meq/l) Cl (meq/l) CO2 (mmol/L) Ca (mg/dl) 136.00-145.00 3.50-5.10 98.00-107.00 21.00-32.00 8.50-10.10 142 4.1 107 26.1 9.2 PT (sec) INR (PTT:PT) 9.80-11.60 0.90-1.10 10.7 1 Medication Medication Total Dose (Bolus/Oral) Medication Total Dosage/Unit 1% XYLOCAINE 40 mL HEPARIN 30824 units PROTAMINE 50 mg Medications (Bolus/Oral) Medication Time Given Dosage/Unit Administered By Reason 1% XYLOCAINE 06/09/2017 2:56:17 PM 20 mL Karina Clemons For pain 20 mL 1% XYLOCAINE given in lab by Karina Clemons in Left Groin via Subcutaneous. Ordered by Roverto Clemons Reason: For pain. 1% XYLOCAINE 06/09/2017 3:00:18 PM 20 mL Karina Clemons For pain 20 mL 1% XYLOCAINE given in lab by Karina Clemons in Right Groin via Subcutaneous. Ordered by Ap Clemons. Reason: For pain. HEPARIN 06/09/2017 3:19:29 PM 09000 units Anesthesia, LOCAL TANKER TRUCK DRIVER As per physicians verbal order 94697 units HEPARIN given in lab by Anesthesia, LOCAL TANKER TRUCK DRIVER via Peripheral IV. Ordered by Karina Clemons. Bella son: As per physicians verbal order. HEPARIN 06/09/2017 3:35:36 PM 2000 units Anesthesia, LOCAL TANKER TRUCK DRIVER 2000 units HEPARIN given in lab by Anesthesia, LOCAL TANKER TRUCK DRIVER via Peripheral IV. Ordered by Karina Clemons. HEPARIN 06/09/2017 3:50:47 PM 2000 units Anesthesia, LOCAL TANKER TRUCK DRIVER As per physicians verbal order 2000 units HEPARIN given in lab by Anesthesia, LOCAL TANKER TRUCK DRIVER via Peripheral IV. Ordered by Karina Clemons. Reas on: As per physicians verbal order. PROTAMINE 06/09/2017 4:08:19 PM 40 mg Anesthesia, LOCAL TANKER TRUCK DRIVER As per physicians ve rbal order 40 mg PROTAMINE given in lab by Anesthesia, LOCAL TANKER TRUCK DRIVER via Peripheral IV. Ordered by Karina Clemons. Reason: As per physicians verbal order. PROTAMINE 06/09/2017 4:26:16 PM 10 mg Anesthesia, LOCAL TANKER TRUCK DRIVER As per physicians ve rbal order 10 mg PROTAMINE given in lab by Anesthesia, LOCAL TANKER TRUCK DRIVER via Peripheral IV. Ordered by Karina Clemons. Reason: As per physicians verbal order. Medication (Drip) Medication Time Given Dosage/Unit Concentration/Unit Diluent (ml) Solution HEPARIN DRIP 06/09/2017 3:36:49 PM 1000 units/hr 34394 units 250 D5W 1000 units/hr HEPARIN DRIP given in lab by Anesthesia, LOCAL TANKER TRUCK DRIVER via Peripheral IV. Pump/Drip Flow = 10 ml /hr [place] [address] units in 250 ml. Ordered by Hanscy. Deonte Reason: As per physicians verbal order. ISUPREL 06/09/2017 3:51:49 PM 20 mcg/min 1 mg 250 NaCl .9 20 mcg/min ISUPREL given in lab by Anesthesia, LOCAL TANKER TRUCK DRIVER via Peripheral IV. Pump/Drip Flow = 300 ml/hr usi ng NaCl .9 with a concentration of 1 mg in 250 ml. Ordered by Hanscy. Deonte Reason: As per physicians verbal order. IV Solutions 06/09/2017 1:37:56 PM 0 mL (IV) NaCl .9 Patient arrived on IV Solutions in Left Antecubital via Peripheral IV. Pump/Drip Flow = 100 ml/hr usi ng NaCl .9. Ordered by Karina Clemons. Reason: As per physicians verbal order. IV Solutions 06/09/2017 1:38:27 PM 0 mL (IV) NaCl .9 Patient arrived on IV Solutions in Right Forearm via Peripheral IV. Pump/Drip Flow = 100 ml/hr using NaCl .9. Ordered by Karina Clemons. Reason: As per physicians verbal order. VANCOMYCIN DRIP 06/09/2017 1:10:00 PM 1 g Patient arrived on 1 g VANCOMYCIN DRIP in Left Antecubital via Peripheral IV. Ordered by Alonso Clemons Reason: As per physicians verbal order. started in outpatient unit by Diana Guerra RN. Patient unable to take Levaquin Initial Case Assessment Cardiovascular HR NIBP Chest Pain 80 152/94 0 Edema Present Skin color Skin None Normal Warm Dry Neurological State Oriented to time-place- Alert Moves all extremities person Respiration - General Respiration Rate SpO2 (%) (B/min) 20 99 Final Case Assessment Cardiovascular HR Rhythm NIBP Chest Pain 72 sr 150/70 0 Edema Present Skin color Skin None Normal Warm Dry Circulatory - Lower Extremities Color Lower Right Color Lower Left Normal Normal Neurological State Oriented to time-place- Lethargic Moves all extremities person Respiration - General Respiration Rate SpO2 (%) O2 (lpm) (B/min) 18 100 4 Chronological Log Time Study Chronological Log Patient arrived on 1 g VANCOMYCIN DRIP in Left Antecubital via Peripheral IV. Ordered by Karina Clemons. Reason: As 13:10:00 per physicians verbal order. started in outpatient unit by Diana Guerra RN. Patient unable to take Levaquin 13:11:00 Indwelling urethral catheter in place which was inserted in outpatient unit. 13:26:00 Patient arrived via Bed. 13:29:07 Patient Name, D.O.B, / Armband Verified By R.N. 13:29:42 Consent signed by the physician and the patient and verified by the Business Law Instructor staff. 13:29:45 Pre-op and post- op instructions given; patient acknowledges understanding of instructions. 13:29:48 Verbal Stimulation=2 Physical Stimulation=2 Airway=2 Respiration=2 TOTAL=10. (0=absent, 1=l imited, 2=present) Anesthesia at bedside. Assumes care of patient. Chase BURCH 13:36:14 13:36:17 Presedation assessment performed by Business Law Instructor RN. 13:36:21 Immediate Presedation assesment performed by physician. 13:36:23 Patient has been NPO for More than 6Hrs. 13:36:31 Skin Breakdown- none 13:36:38 Patient Warmer Placed on the Table. 13:36:42 Disposable Defibrillator Pads Placed On Patient. 13:36:44 Cordell Prominences Protected 13:36:46 A # 20 IV was noted in the Antecubital (left). Grade = ~GRADE~ 13:37:37 A # 22 IV was noted in the Forearm (right). Grade = ~GRADE~ 13:37:54 History and physical on the chart or being dictated. Patient arrived on IV Solutions in Left Antecubital via Peripheral IV. Pump/Drip Flow = 100 ml/ hr using NaCl .9. Ordered 13:37:56 by Karina Clemons. Reason: As per physicians verbal order. Patient arrived on IV Solutions in Right Forearm via Peripheral IV. Pump/Drip Flow = 100 ml/hr using NaCl .9. Ordered 13:38:27 by Karina Clemons. Reason: As per physicians verbal order. 13:39:00 Right groin prepped with 2% chlorhexidine, and with a 3 min. waiting time. 13:39:03 Left groin prepped with 2% chlorhexidine, and with a 3 min. waiting time. Assessment: Initial Case, HR=80 BPM, VRPC=818/94 mmhg, Chest Pain=0, Edema=None, Color=Normal, Skin = Warm, Dry 13:44:11 Neurological: State=Alert, Ox3, BERNARD Respiration: Resp=20 B/min, SpO2=99 % 14:26:00 MD notified patient is ready 14:30:00 Reference ECG taken 14:41:00 MD responded 14:46:37 MD arrived. 14:50:18 Immediate Presedation assesment performed by physician. Time Out. Correct patient, procedure, procedure equipment, site and side verified with physicia n present. Time 14:52:27 concurred by MD, individual staff and LOCAL TANKER TRUCK DRIVER. 14:52:35 Case Start 14:53:15 BRYSON begun at bedside by Dr. Clemons 14:55:26 BRYSON completed at bedside. 20 mL 1% XYLOCAINE given in lab by Karina Clemons in Left Groin via Subcutaneous. Ordered by Karina Bryant. 14:56:17 Reason: For pain. 14:56:45 Vascular access was obtained in the Fem Vein (left). 14:56:56 Vascular access was obtained in the Fem Vein (left). 14:56:57 Vascular access was obtained in the Fem Vein (left). 14:57:05 Vascular access was obtained in the Fem Art (left). 14:58:55 A SHEATH, EPS, FR6 FAST CATH FR 6 was advanced into the Fem Vein (left) using the Percutane ous technique. 14:59:12 A SHEATH, EPS, FR7 FAST CATH FR 7 was advanced into the Fem Vein (left) using the Percutane ous technique. 14:59:23 A SHEATH, FR10 JAIME 11CM FR 10 was advanced into the Fem Vein (left) using the Percutaneo us technique. 14:59:44 A SHEATH, FR4.5 PRELUDE 11CM FR 4.5 was advanced into the Fem Art (left) using the Percutan eous technique. 20 mL 1% XYLOCAINE given in lab by Karina Clemons in Right Groin via Subcutaneous. Ordered by Karina Fishman. 15:00:18 Reason: For pain. 15:00:37 Vascular access was obtained in the Fem Vein (right). 15:00:42 A SHEATH, EPS, FR8 FAST CATH FR 8 was advanced into the Fem Vein (right) using the Percutan eous technique. A CATHETER, JSN, QUAD BUNDLE FR 5 was advanced vis Fem Vein (left) and placed in the CS. Placem ent was visually 15:02:18 confirmed under fluoroscopy. A CATHETER, JSN, QUAD BUNDLE FR 5 was advanced vis Fem Vein (left) and placed in the HIS. Place ment was 15:02:34 visually confirmed under fluoroscopy. 15:06:01 EP Study in progress. 15:08:00 CATHETER, ACUNAV FR10 ICE ([employer]) FR 10 Was Postioned. A SHEATH, FR8.5 STEERABLE SM 71CM BUNDLE 71CM was exchanged in the Fem Vein (right). This was n ecessary in 15:10:03 order for catheter support. 15:14:15 [place] in 15:19:00 A eps was advanced to the right atrium and passed through the septal wall to the left atriu m. 15:19:10 [place] 73168 units HEPARIN given in lab by Anesthesia, LOCAL TANKER TRUCK DRIVER via Peripheral IV. Ordered by Alonso Clemons Reason: As per 15:19:29 physicians verbal order. A CATHETER, FR7 OPTIMA SPIRAL BUNDLE FR7 was advanced vis Fem Vein (right) and placed in the LA . Placement 15:19:57 was visually confirmed under fluoroscopy. Mapping in progress. 15:24:35 Mapping complete. Catheter was removed. A CATHETER, TACTICATH ABLAT 65 BUNDLE was advanced vis Fem Vein (right) and placed in the LA. P lacement was 15:25:09 visually confirmed under fluoroscopy. 15:27:20 Activated Clotting Time Drawn 15:30:00 RF Ablation of the LT. ATRIUM with a CATHETER, TACTICATH ABLAT 65 BUNDLE. 15:34:24 ACT (Normal Range 90-180) = 320 15:35:36 2000 units HEPARIN given in lab by Anesthesia, LOCAL TANKER TRUCK DRIVER via Peripheral IV. Ordered by Roverto Clemons. 1000 units/hr HEPARIN DRIP given in lab by Anesthesia, LOCAL TANKER TRUCK DRIVER via Peripheral IV. Pump/Drip Flow = 10 ml/hr using 15:36:49 D[place] [address] units in 250 ml. Ordered by Hanscy. Deonte Reason: As per phy sicians verbal order. 15:42:01 Activated Clotting Time Drawn 15:49:43 ACT (Normal Range 90-180) = 339 2000 units HEPARIN given in lab by Anesthesia, LOCAL TANKER TRUCK DRIVER via Peripheral IV. Ordered by Karina Clemons . Reason: As per 15:50:47 physicians verbal order. 15:51:00 Ablation complete. 15:51:06 ECG rhythm of AF noted. Patient cardioverted at 200 joules. Success synch 20 mcg/min ISUPREL given in lab by Anesthesia, LOCAL TANKER TRUCK DRIVER via Peripheral IV. Pump/Drip Flow = 300 ml/ hr using NaCl .9 15:51:49 with a concentration of 1 mg in 250 ml. Ordered by Karina Clemons. Reason: As per physicians presley bal order. 16:04:07 Isuprel off. 16:06:48 Catheters removed without difficulty. 16:07:36 Heparin off A SHEATH, FR9 JAIME 11CM FR 9 was exchanged in the Fem Vein (right). This was necessary in ord er to achieve 16:07:39 vascular hemostasis. 40 mg PROTAMINE given in lab by Anesthesia, LOCAL TANKER TRUCK DRIVER via Peripheral IV. Ordered by Karina Clemons. R juarez: As per 16:08:19 physicians verbal order. 16:10:30 PACU called. Spoke to Kerrie 16:10:36 Bedside Report will be given. 16:11:01 Ablation procedure performed: AFIB. 16:11:05 EP Procedure was performed. 16:21:42 Activated Clotting Time Drawn 16:24:47 ACT (Normal Range 90-180) = 200 10 mg PROTAMINE given in lab by Anesthesia, LOCAL TANKER TRUCK DRIVER via Peripheral IV. Ordered by Karina Clemons. Dwight juarez: As per 16:26:16 physicians verbal order. 16:32:25 No case complications noted. 16:32:26 Cine recording checked. 16:33:14 Defibrillator and ground pads removed. Skin intact. Assessment: Final Case, HR=72 BPM, Rhythm=sr, SUDG=502/70 mmhg, Chest Pain=0, Edema=None, Hegins r=Normal, Skin = Warm, Dry Lower Right Extremities: Color=Normal 16:33:21 Lower Left Extremities: Color=Normal Neurological: State=Lethargic, Ox3, BERNARD Respiration: Resp=18 B/min, YsL2=447 %, O2=4 lpm 16:34:03 Activated Clotting Time Drawn 16:36:33 ACT (Normal Range 90-180) = 144 16:37:22 Arterial Sheath removed; pressure applied to access site by TF. 16:37:43 Right venous sheath removed; pressure applied to access site by HH. 16:50:00 Left venous sheaths removed; pressure applied to access site by DC. 17:00:46 Case End 17:03:00 Sterile dressings aplied to all sites. Sites wnl. Pt w/o distress. Puses to feet 1/= bilat erally. 17:08:36 Patient moved to stretcher End Study - Contrast Media Used In Study Contrast Total Opened (mL) Total Used (mL) Total Wasted (mL) Unspecified 0 0 0 End Study - Maximum Contrast Load Max Contrast Load (mL) 456.1 End Study - Radiation Exposure Fluoro Time (minutes) 3.5 End Study - Patient Disposition Complications Transferred To Interventional Outcome No Telemetry Bed successful
[2017-06-09] MEDS ORDERED: PILL SPLITTER OTHER PRN (17:15)
[2017-06-09] MEDS ORDERED: FLECAINIDE ACETATE 100 MG TAB PO SCH (21:00)
[2017-06-09] MEDS: APIXABAN 5 MG TABLET PO SCH (21:10)
[2017-06-09] MEDS: METOPROLOL TARTRATE 25 MG TAB PO SCH (21:10)
[2017-06-09] MEDS: FLECAINIDE ACETATE 100 MG TAB PO SCH (21:10)
[2017-06-10] VITALS (12 sets, daily range): BP systolic 101–156; BP diastolic 52–79; PULSE 52–62; RESP 14–20; TEMP 98.1–98.9; O2SAT 97–100
[2017-06-10 05:38] LABS: APTT (PATIENT) 26.2 SEC (24.3-30.1)
--- NOTE | 2017-06-10 07:55 | PD.CARD.PN ---
Subjective Subjective Remarks Currently in NSR, pt notes lightheadedness, though current vitals stable (she is slightly hypertensive), NSR on tele. Objective Medications Administered Medications Medications (Trade) Dose Ordered Sig/Jacklyn Route PRN Reason Start Time Stop Time Status Last Admin Dose Admin Sodium Chloride (NS 500 ml Inj) 500 ml @ 30 mls/hr [id number] IV 06/09/17 12:00 06/09/17 13:10 Apixaban (Eliquis) 5 mg BID PO 06/09/17 21:00 06/09/17 21:10 Metoprolol Tartrate (Lopressor) 25 mg Q12HR PO 06/09/17 21:00 06/09/17 21:10 Flecainide Acetate (Tambocor) 50 mg Q12HR PO 06/09/17 21:00 06/09/17 21:10 Vital Signs / I&O Vital Signs Date Time Temp Pulse Resp B/P Pulse Ox O2 Delivery O2 Flow Rate FiO2 06/10/17 03:00 98.1 54 14 101/52 97 06/09/17 23:00 98.2 63 14 117/64 95 06/09/17 19:00 98.7 69 18 129/71 95 06/09/17 18:25 98.0 74 18 152/85 96 06/09/17 18:20 97.8 75 16 134/71 94 Room Air 06/09/17 18:00 76 16 128/67 93 Room Air 06/09/17 17:45 72 16 134/65 94 Room Air 06/09/17 17:30 71 16 127/61 95 Room Air 06/09/17 17:15 97.6 75 16 151/67 95 Room Air 06/09/17 12:33 98.3 70 18 155/100 99 I/O 06/09/17 06/09/17 06/09/17 06/10/17 06/10/17 06/10/17 06:59 14:59 22:59 06:59 14:59 22:59 Intake Total 1200 ml 480 ml Output Total 1000 ml 1600 ml Balance 200 ml -1120 ml Intake Oral 480 ml IV Total 200 ml Other 1000 ml Output Urine Total 950 ml 1600 ml Estimated Blood Loss 50 ml Physical Exam GENERAL: This is a well-nourished, well-developed patient, in no apparent distress. CARDIOVASCULAR: Regular rate and rhythm without murmurs, gallops, or rubs. RESPIRATORY: Clear to auscultation. Breath sounds equal bilaterally. No wheezes , rales, or rhonchi. GASTROINTESTINAL: Abdomen soft, non-tender, nondistended. Normal active bowel sounds MUSCULOSKELETAL: Extremities without clubbing, cyanosis, or edema. NEURO: Alert & Oriented x4 to person, place, time, situation. Moves all ext x4 Laboratory Laboratory Tests Test 06/09/17 06/10/17 12:05 03:56 White Blood Count 5.8 TH/MM3 Red Blood Count 3.96 MIL/MM3 Hemoglobin 12.2 GM/DL Hematocrit 37.7 % Mean Corpuscular Volume 95.3 FL Mean Corpuscular Hemoglobin 31.0 PG Mean Corpuscular Hemoglobin 32.5 % Concent Red Cell Distribution Width 12.5 % Platelet Count 191 TH/MM3 Mean Platelet Volume 9.6 FL Neutrophils (%) (Auto) 62.0 % Lymphocytes (%) (Auto) 27.8 % Monocytes (%) (Auto) 9.5 % Eosinophils (%) (Auto) 0.4 % Basophils (%) (Auto) 0.3 % Neutrophils # (Auto) 3.6 TH/MM3 Lymphocytes # (Auto) 1.6 TH/MM3 Monocytes # (Auto) 0.5 TH/MM3 Eosinophils # (Auto) 0.0 TH/MM3 Basophils # (Auto) 0.0 TH/MM3 CBC Comment DIFF FINAL Differential Comment Prothrombin Time 10.7 SEC 11.0 SEC Prothromb Time International 1.0 RATIO 1.0 RATIO Ratio Activated Partial 26.3 SEC 26.2 SEC Thromboplast Time Sodium Level 142 MEQ/L Potassium Level 4.1 MEQ/L Chloride Level 107 MEQ/L Carbon Dioxide Level 26.1 MEQ/L Anion Gap 9 MEQ/L Blood Urea Nitrogen 22 MG/DL Creatinine 0.97 MG/DL Estimat Glomerular Filtration 57 ML/MIN Rate Random Glucose 93 MG/DL Calcium Level 9.2 MG/DL Blood Type A POSITIVE Antibody Screen NEGATIVE Assessment and Plan Problem List: (1) Atrial fibrillation with RVR Assessment and Plan: now s/p ablation (2) S/P ablation of atrial fibrillation (3) Dizziness Assessment and Plan: Pt still notes lightheadedness; vitals stable, will get cbc to ensure no significant drop; will have her eat/drink and ambulate; if sx resolved and vitals remain stable she can be discharged home to f/u with Deonte. Robert Stephens MD Jun 10, 2017 07:55
[2017-06-10] MEDS: APIXABAN 5 MG TABLET PO SCH (08:38)
[2017-06-10] MEDS: METOPROLOL TARTRATE 25 MG TAB PO SCH (08:38)
[2017-06-10] MEDS: FLECAINIDE ACETATE 100 MG TAB PO SCH (08:39)
[2017-06-10] MEDS ORDERED: DOCUSATE SODIUM 100 MG CAP PO SCH (09:00)
[2017-06-10 10:59] LABS: AUTOMATED NEUTROPHIL # 5.9 TH/MM3 (1.8-7.7); BASOPHIL # 0.1 TH/MM3 (0-0.2); BASOPHIL % 0.6 % (0.0-2.0); EOSINOPHIL % 0.3 % (0.0-4.0); HEMATOCRIT 36.5 % (35.0-46.0); HEMO FLAGS DIFF FINAL; LYMPH % 25.6 % (9.0-44.0); LYMPHOCYTE # 2.3 TH/MM3 (1.0-4.8); MEAN CELL VOLUME 96.1 FL (80.0-100.0); MEAN CORPUSCULAR HEMOGLOBIN 32.6 PG (27.0-34.0); MEAN CORPUSCULAR HGB CONC 33.9 % (32.0-36.0); MONO % 9.6 % (0.0-8.0); NEUT % 63.9 % (16.0-70.0); PLATELET COUNT 177 TH/MM3 (150-450); RED CELL DISTRIBUTION WIDTH 12.6 % (11.6-17.2); WHITE BLOOD COUNT 9.2 TH/MM3 (4.0-11.0)
--- NOTE | 2017-06-10 13:56 | EKG ---
Date Performed: 06/09/2017 Time Performed: 17:38:50 PTAGE: 71 years EKG: Sinus rhythm WITH FIRST DEGREE AV BLOCK INCOMPLETE RIGHT BUNDLE BRANCH BLOCK LEFT ANTERIOR FASCICULAR BLOCK ABNOR MAL ECG PREVIOUS TRACING : 06/09/2017 12.34 Compared to prior tracing no significant change. DOCTOR: Robert Stephens Interpretating Date/Time 06/10/2017 13:55:23
--- NOTE | 2017-06-10 13:56 | EKG ---
Date Performed: 06/09/2017 Time Performed: 12:34:22 PTAGE: 71 years EKG: Sinus rhythm with 1st degree A-V block Left anterior fascicular block Incomplete RBBB Abnormal ECG PREVIOUS TRACING : 05/31/2017 10.31 Since prior tracing, sinus rhythm has replaced atrial flutt er. DOCTOR: Robert Stephens Interpretating Date/Time 06/10/2017 13:55:04
--- NOTE | 2017-06-10 13:57 | EKG ---
Date Performed: 06/10/2017 Time Performed: 06:35:50 PTAGE: 71 years EKG: Sinus bradycardia with 1st degree A-V block Prolonged QT interval Left anterior fascicular block Abnormal ECG PREVIOUS TRACING : 06/09/2017 17.38 Since prior tracing, sinus rate is slower. QT interval is s lightly longer. DOCTOR: Robert Stephens Interpretating Date/Time 06/10/2017 13:56:04
--- NOTE | 2017-06-18 09:58 | PD.CARD ---
Atrial Fibrillation Ablation PROCEDURE DATE: Jun 09, 2017 PROCEDURES PERFORMED: 1. Electrophysiology study on Isuprel infusion 2. CS cannulation 3. 3-D mapping 4. Transseptal approach 5. Right and left heart catheterization 6. Intracardiac echo 7. Radiofrequency ablation of atrial fibrillation 8. Pulmonary vein isolation 9. Posterior wall ablation 10. Mitral valve isolation 11. Mitral line creation 12. Left atrial tachycardia ablation 13. Roof line creation 14. Floor line creation 15. Anterior wall ablation 16. Cardioversion INDICATIONS FOR THE PROCEDURE Ms. Patricia is a 71-year-old female with atrial fibrillation referred for electrophysiology study and ablation. The patient is symptomatic and on anticoagulation. The risks, the nature and the benefits of the procedure were clearly stated to her. The risks include pneumothorax, cardiac perforation, stroke, need for open heart surgery and even . The patient understood and agreed to proceed. DESCRIPTION OF THE PROCEDURE IN DETAIL As written informed consent was obtained prior to esophageal echocardiogram, the patient was kept on the table where she was prepped and draped in the usual sterile fashion. Conscious sedation was initiated and maintained throughout the procedure by the anesthesiologist. Once sedation was verified, the right and left inguinal areas were anesthetized with 2% Xylocaine. Using modified Seldinger technique, the left femoral vein was cannulated on three occasions, three guidewires were advanced. Over the wire a 6, 7 and a 10-Icelandic Hemaquet were advanced. Then the left femoral artery was cannulated on one occasion, one guidewire was advanced. Over the wire a 4-Icelandic Hemaquet was advanced. Then the right femoral vein was cannulated on one occasion, one guidewire was advanced. Over the wire a 8-I[place]ic Hemaquet was advanced. Then under fluoroscopic guidance through the 6 and 7-Icelandic Hemaquet, two 5-Icelandic Padmini curved quadripolar electrophysiology catheters were advanced and placed around the His as well as coronary sinus. Basic interval was measured. The patient was in atrial fibrillation. Through the 10-I[place]ic Hemaquet, a CordUTILICASE Shin AcuNav intracardiac echo catheter was advanced and placed at the right atrium. Multiple view was obtained. There is pericardial effusion, pulmonary vein was seen, atrial septal was visualized. Then the 8-Icelandic Hemaquet in the right femoral vein was exchanged for AgilUTILICASE transseptal sheath that was placed all the way to the superior vena cava. Through the sheath a Tesha needle was advanced, then the sheath, the dilator and the needle were progressed until foci engaged. Once engaged, the needle was advanced. RF was delivered for 2 seconds. I was able to cross into the left atrium. Once the needle crossed, the dilator was advanced. Once the dilator crossed, the sheath was advanced. Once the sheath crossed, the dilator and the needle were removed. At this point I did flood the system and fluid movement was seen in the left atrium the indicates the sheath is in good position. The patient already received 10,000 units of heparin. The goal is to keep an ACT around 350 during ablation. Then through the sheath a [place] 20 pulse circumferential catheter was advanced. Using [employer] endocardial solution mapping system, a two-dimensional configuration of the left atrium was obtained. Points were taken at the left superior and inferior veins, right superior and inferior veins, mitral valve, and appendages. Then through the sheath a [place] TactiCath 65cm 3.5mm irrigated tipped mapping and radiofrequency ablation catheter was advanced. Esophageal probe was placed temperature monitoring during ablation. When it increased to 0.5 degrees Celsius above baseline, I moved to a different area of the atrium. First I did isolate the left superior and inferior vein. I did make a big unga around the veins. Posterior was ablated. Then a roof line was created, a floor line was created, a mitral line was isolated, then the mitral valve was isolated. At that point the patient was in left atrial tachycardia. I did create a line from the floor to the roof area, passing by the left atrial appendage. Then the right superior and inferior veins were isolated. I did remap the atrium. There is no significant signal in the atrium. At this point I decided to proceed with cardioversion. A 200 sync biphasic joule was delivered that converted the patient into sinus rhythm. At that point I did advance the circumferential catheter again into the vein. There was no signal into the vein, pacing from the vein showed no conduction to the atrium. Isuprel infusion was initiated at 10 mcg for 15 minutes. No tachyarrhythmia was induced, post Isuprel no tachyarrhythmia was induced. At that point the procedure was complete. All catheters were removed, atrial septal sheath was exchanged for 9-Icelandic Hemaquet, intracardiac echo showed no pericardial effusion. There is still good flow in the pulmonary vein. The patient is going to be transferred to the recovery room. No incident report. The patient tolerated the procedure. Blood loss was minimal. FINDINGS 1. Electrocardiogram: At baseline the patient was in atrial fibrillation, post procedure the patient was in sinus rhythm. 2. Basic interval: Base cycle length was around 520. Post ablation she was around 900 milliseconds. AH at 90 and HV at 62 milliseconds. 3. Tachyarrhythmia: Atrial fibrillation was mapped and ablated. Atrial tachycardia was ablated. The ablation was successful. CONCLUSION Successful electrophysiology study, mapping, radiofrequency ablation of atrial fibrillation, left atrial tachycardia, pulmonary vein isolation, posterior ablation, mitral valve isolation, mitral line creation, roof line creation, floor line creation, left atrial tachycardia, and cardioversion. COMMENTS AND RECOMMENDATIONS The patient is going to be transferred to the telemetry unit. Will be observed and when stable can be discharged home. Karina Clemons MD Jun 18, 2017 09:58
== END 2017-06-10 11:20 | disposition home or self-care (01) ==
LOC: HCAT 11:34 → HDIC 11:35 → HCIS 18:16 → HCAT 06-10 11:20
PROVIDERS: ATTEND Internal Medicine Interventional Cardiology
DX: I48.2 Chronic atrial fibrillation (principal); I47.1 Supraventricular tachycardia; I73.9 Peripheral vascular disease, unspecified; Z79.01 Long term (current) use of anticoagulants
CPT/HCPCS: 00537; 80048; 85002; 85025; 85610; 85730; 86850; 86900; 86901; 92960; 93005; 93312; 93320; 93325; 93613; 93623; 93656; 93662; C1730; C1731; C1732; C1759; C1766; C2630; J1644; J2720; J3010; J3370; J7040

== ENCOUNTER 2017-12-18 08:52 | Day surgery (SDC) | payer MEDICARE ==
[2017-12-18] MEDS ORDERED: CHLORHEXIDINE GLUCONATE 2 % 1 PACK (2 CLOTHS) TOPICAL (10:00)
[2017-12-18] MEDS: NS 1000 ML IV (10:00)
[2017-12-18] MEDS ORDERED: POVIDONE IODINE 5% (ANTISEPSIS KIT) 4 APPLICATIONS EACH NARE (10:00)
[2017-12-18] MEDS ORDERED: LORazepam 1 MG TAB SL (10:00)
[2017-12-18] MEDS ORDERED: MUPIROCIN 2% OINT 1 APPLIC/GM SYR NASAL (10:00)
[2017-12-18 10:30] LABS: AUTOMATED NEUTROPHIL # 3.6 TH/MM3 (1.8-7.7); BASOPHIL % 0.8 % (0.0-2.0); EOSINOPHIL % 0.3 % (0.0-4.0); HEMATOCRIT 42.1 % (35.0-46.0); HEMO FLAGS DIFF FINAL; HEMOGLOBIN 14.3 GM/DL (11.6-15.3); LYMPH % 20.3 % (9.0-44.0); MEAN CELL VOLUME 97.2 FL (80.0-100.0); MEAN CORPUSCULAR HEMOGLOBIN 32.9 PG (27.0-34.0); MEAN CORPUSCULAR HGB CONC 33.8 % (32.0-36.0); MEAN PLATELET VOLUME 9.2 FL (7.0-11.0); MONO % 9.4 % (0.0-8.0); MONOCYTE # 0.5 TH/MM3 (0-0.9); NEUT % 69.2 % (16.0-70.0); PLATELET COUNT 204 TH/MM3 (150-450); RED BLOOD COUNT 4.34 MIL/MM3 (4.00-5.30); RED CELL DISTRIBUTION WIDTH 12.3 % (11.6-17.2); WHITE BLOOD COUNT 5.1 TH/MM3 (4.0-11.0)
[2017-12-18 10:43] LABS: APTT (PATIENT) 26.1 SEC (24.3-30.1); INTERNATIONAL NORMALIZED RATIO 1.1 RATIO; PROTHROMBIN TIME - PATIENT 11.1 SEC (9.8-11.6)
[2017-12-18] MEDS: GENTAMICIN SULFATE 80 MG/2 ML VIAL (10:50)
[2017-12-18] MEDS: LIDOCAINE HCL 2% 50 ML VIAL (10:50)
[2017-12-18] MEDS: ceFAZolin 2 GM PREMIX 50 ML IV ×4 (11:01→17:52)
[2017-12-18 11:02] LABS: ANION GAP 6 MEQ/L (5-15); BICARBONATE 25.8 MEQ/L (21.0-32.0); BLOOD UREA NITROGEN 21 MG/DL (7-18); CHLORIDE 109 MEQ/L (98-107); CREATININE 0.95 MG/DL (0.50-1.00); GLOMERULAR FILTRATION RATE 58 ML/MIN (>89); GLUCOSE,RANDOM 88 MG/DL (74-106); POTASSIUM 4.4 MEQ/L (3.5-5.1); SODIUM (NA) 141 MEQ/L (136-145)
[2017-12-18] MEDS ORDERED: SODIUM CHLORIDE 0.9% FLUSH 10 ML FLUSH IV FLUSH (12:00)
[2017-12-18] MEDS ORDERED: ONDANSETRON HCL 4 MG/2 ML VIAL IV PUSH (12:00)
[2017-12-18] MEDS: ACETAMINOPHEN/CODEINE 300 MG/30 MG TAB PO ×2 (12:00→20:27)
[2017-12-18] MEDS ORDERED: ACETAMINOPHEN/CODEINE 300 MG/30 MG TAB PO (12:00)
[2017-12-18] MEDS: FLECAINIDE ACETATE 100 MG TAB PO ×2 (12:15→20:26)
[2017-12-18] MEDS: METOPROLOL TARTRATE 25 MG TAB PO ×2 (12:15→20:26)
[2017-12-18] MEDS: APIXABAN 5 MG TABLET PO ×2 (12:15→20:25)
[2017-12-18] MEDS: MIDAZOLAM HCL 2 MG/2 ML VIAL (12:41)
[2017-12-18] MEDS: SODIUM CHLORIDE 0.9% FLUSH 10 ML FLUSH IV FLUSH (20:25)
[2017-12-19] MEDS: ACETAMINOPHEN/CODEINE 300 MG/30 MG TAB PO ×3 (00:20→09:34)
[2017-12-19] MEDS: ceFAZolin 2 GM PREMIX 50 ML IV ×2 (02:06→08:54)
[2017-12-19] MEDS: METOPROLOL TARTRATE 25 MG TAB PO (08:53)
[2017-12-19] MEDS: DOCUSATE SODIUM 100 MG CAP PO (08:53)
[2017-12-19] MEDS: APIXABAN 5 MG TABLET PO (08:53)
[2017-12-19] MEDS: FLECAINIDE ACETATE 100 MG TAB PO (08:53)
[2017-12-19] MEDS: SODIUM CHLORIDE 0.9% FLUSH 10 ML FLUSH IV FLUSH (08:54)
[2017-12-19] MEDS ORDERED: NON-FORMULARY DRUG (Glucosamine-Chondroitin 1 TAB) PO (09:00)
[2017-12-19] MEDS: NS 1000 ML IV (09:34)
== END 2017-12-19 11:52 | disposition home or self-care (01) ==
LOC: HCAT 08:52 → HDIC 08:53 → HCIS 12:15
DX: I49.5 Sick sinus syndrome (principal); I48.91 Unspecified atrial fibrillation; I11.9 Hypertensive heart disease without heart failure; R00.2 Palpitations; I73.9 Peripheral vascular disease, unspecified; R06.00 Dyspnea, unspecified; R53.83 Other fatigue; Z79.01 Long term (current) use of anticoagulants; Z82.49 Family history of ischemic heart disease and other diseases of the circulatory system
CPT/HCPCS: 00530; 33208; 71045; 80048; 85025; 85610; 85730; 86850; 86900; 86901; 92960; 93005